=== PATIENT | female | born 1935 | race Caucasian/White ===

== ENCOUNTER → 2018-01-21 08:41 | Outpatient (CLI) | payer MEDICARE, OTHER, SELFPAY ==
[2018-01-21 10:32] LABS: Erythrocyte Sedimentation Rate < 1 mm/hr (0-30)
[2018-01-21 10:36] LABS: Absolute Lymphocyte Count 1.18 X10^3/ul (0.83-4.51); Absolute Neutrophil Count 2.7 X10^3/uL (2.0-7.7); Basophil# 0.03 X10^3/uL; Basophil% 0.7 % (0-1); Eosinophil# 0.12 X10^3/uL; Eosinophils% 2.7 % (0-5); Hematocrit 40.1 % (37-47); Hemoglobin 13.2 g/dl (12.0-15.0); Lymphocyte # 1.18 X10^3/ul (4.0); Lymphocyte % 26.6 % (19-41); Mean Corp Hgb Conc 32.9 g/gl (32-36); Mean Corpuscular Hgb 30.8 pg (27.0-32.0); Mean Corpuscular Volume 93.7 fL (81-99); Mean Platelet Vol. 9.5 fl (6.2-12.0); Monocyte# 0.38 X10^3/uL; Monocyte% 8.6 % (0-10); Neutrophil # 2.71 X10^3/uL (2.7-7.7); Neutrophil % 61.2 % (47-70); Platelet Count 245 K/mm3 (150-450); RBC Distribution Width CV 13.1 % (11.6-14.6); RBC Distribution Width SD 44.5 fl (35.1-43.9); Red Blood Count 4.28 M/mm3 (4.2-5.4); White Blood Count 4.4 K/mm3 (4.4-11.0)
[2018-01-21 10:42] LABS: POSITIVE COUNT NO; POSITIVE DIFFERENTIAL NO; POSITIVE MORPHOLOGY NO
[2018-01-21 10:43] LABS: Hemoglobin A1c 5.7 % (4.2-6.3)
[2018-01-21 10:45] LABS: ALB/GLOB Ratio 1.3 RATIO (0.9-2.4); AST(SGOT) 15 U/L (15-37); Alanine Aminotransfer ALT/SGPT 25 U/L (13-56); Albumin, Serum 3.9 g/dL (3.2-5.0); Alkaline Phosphatase 37 U/L (45-117); Anion Gap 7 (5-15); BUN 28 mg/dL (7-18); BUN/Creat Ratio 33.1 RATIO (10-20); Calcium,Total 9.7 mg/dL (8.5-10.1); Chloride 107 mmol/L (98-107); Cholesterol 162 mg/dL (200); Creatinine, Serum 0.84 mg/dL (0.55-1.02); EST Glomerular Filtration Rate 69 mL/min (>60); Est Glom Filt Rate - Afr Amer 83 mL/min (>60); Glucose 106 mg/dL (74-106); High Density Lipoprotein 46 mg/dL; Magnesium 1.9 mg/dL (1.6-2.6); Potassium 3.9 mmol/L (3.5-5.1); Protein, Total 6.9 g/dL (6.4-8.2); Sodium Level 141 mmol/L (136-145); Triglycerides 215 mg/dL; Very Low Density Lipoprotein 43 mg/dL (5-40)
[2018-01-27 11:10] LABS: Vitamin D 1,25-Dihydroxy 39.8 pg/mL (19.9-79.3)
== END ==
PROVIDERS: Family Provider Family Medicine; PCP Family Medicine; Visit Provider Family Medicine
DX: E78.5 Hyperlipidemia, unspecified (principal); E83.42 Hypomagnesemia; E16.2 Hypoglycemia, unspecified; M12.80 Other specific arthropathies, not elsewhere classified, unspecified site; I10 Essential (primary) hypertension
CPT/HCPCS: 36415; 80053; 80061; 82652; 83036; 83735; 85025; 85652

== ENCOUNTER 2018-06-15 14:30 | Outpatient (RCR) | payer MEDICARE, OTHER, SELFPAY ==
--- NOTE | 2018-05-18 13:56 | HP.PTEVAL ---
Patient's Visit Information VENU RAMIREZ is a 82 year old F referred to Physical Therapy by Patrick Cowart with a diagnosis of Postural abnormality adn gait imbalnce.. Date of Evaluation: 05/18/18 Physical Therapist: Patrick Livingston DPT, OC - Visit Plan Frequency: 2x /Week Duration: 4-6 Weeks Plan: 2x/week for 3 weeks to 6 weeks. roll adn STM and stretch B ITB and teach ITB, HS stretches for HEP. Stretch ITB B. Teach hip strength and postural strength for HEP in gym. - Subjective Subjective: had difficulties and has not been able to get in for eval in January. Is in here because pt might have some spinal stenosis or postural abnormalities. Used to feel like she was veering left with walking but not anymore. Hasn't been walking as much over the last couple months. Gets burning in both lateral hips with ambulation adn soreness with pressure. Up and down steps can be bothersome to L knee which was fixed 4 yrs ago. may fovor L knee now as steps now hurt L knee descending steps. Probably has OA. No falls, no cane or walker, no dizzyness, does not feel imbalanced, no obvious neuropathy. Sleeps well. Basic ADLs are OK. Works in yard without problems in yard. Hobbies: cooking and reading adn on computer and does without a problem. [employer] class 2x/week. - Pain R knee Pain Intensity (Out of 10): 0 Pain Intensity Range: 0, 3 B hips Pain Intensity (Out of 10): 0 Pain Intensity Range: 0, 2 - Objective Posture is forward head adn kyphotic T/S. VOR walking is good. [id number] patella and achilles 2/3. Sensation WNL to gross light touch in LE. HS and gastroc minimally tight. ITB mod tight B. Strength 4/5 LE. Coordination to reciprocal toe and heel tap and heel to peterson test normal. Walking is safe and I, steps are reciprocal but need rail due to R knee pain. Exit chair without UE I. Tender to palpation B trochanteric bursa area. - Balance Scores Functional Gait Assessment Score: 27 % Disability: 10.0000 CATSIB Score (Max score 120 seconds): 120 - Goals Goal 1:: Pain in B hips 1/10 at worst and 90% improved with walking Goal Time Frame: 2-4 Weeks Goal 2:: I approp postural and LE strength ex. Goal Time Frame: 2-4 Weeks - Rehabilitation Potential Physical Therapy Diagnosis: Torchanteric bursitis and postural abnormality. Rehabilitation Potential: Fair - Anticipated Interventions Patient/Client Instruction: Educate patient on: Condition, Plan of Care For the Purpose of:: To decrease pain, To increase tolerance to activity/condition/position Therapeutic Exercise to Include: Strength training, Postural training, Flexibilty training, Passive ROM For the Purpose of:: To decrease pain, To increase tolerance to activity/condition/position Manual Therapy Techniques to Include: Passive ROM, Soft tissue mobilization For the Purpose of:: To increase tolerance to activity/condition/position, To improve ability of physical actions for home/community/work/leisure TENS: Yes Cryotherapy (ice pack, ice massage): Yes For the Purpose of:: To decrease pain Thank you for the opportunity to evaluate your patient. For Medicare and Medicare HMO plans, please review the plan of care and approve it. It will need to be FAXED BACK to us at [phone] for Medicare purposes. Please let me know if there are questions or concerns regarding this plan of care. Physician Signature: Date:
--- NOTE | 2018-06-15 15:20 | HP.PTDCSUM ---
HP - PT D/C Summary It has been my pleasure to treat VENU RAMIREZ under orders from Patrick Cowart MD, for the diagnosis of Postural abnormality adn gait imbalnce. for a total of 7 visit(s). Discharge Date: 06/15/18 Please see the following information for a summary of their discharge status. - Subjective Subjective: Feeling a little better. Has not been out walking due to cold weather. Squeezing ball between knees and squeezing now which is better. Hip exercises getting less painful. Stress is carried in neck. Driving to [facility] next week. Exercises in PT are helpful. Feels like she is on a track to do things. - Pain R knee Pain Intensity (Out of 10): 0 B hips Pain Intensity (Out of 10): 0 - Overall Improvement % Improvement: 50 - Objective Objective/Function: Walks well wiotu antalgia, feeling better overall. Going to [facility] for the winter next week and feels like she has enough to work on while down there. - Goals Goal 1:: Pain in B hips 1/10 at worst and 90% improved with walking Goal Progress: Progressing Goal 2:: I approp postural and LE strength ex. Goal Progress: Goal Met - Plan Plan: D/C to HEP - D/C Information Discharge Comments: Will go to [facility] next week and work on exercises I and let doctor know if concerns arise. If there are questions or concerns regarding this patient's physical therapy, please feel free to call me at [phone]. Thank you for the referral of this patient. Sincerely, Patrick Livingston, DPT, OCS, CSCS
== END 2018-06-15 19:00 | disposition home or self-care (01) ==
LOC: PT 14:30
PROVIDERS: Family Provider Family Medicine; PCP Family Medicine; Visit Provider Family Medicine
DX: R29.3 Abnormal posture (principal); R26.89 Other abnormalities of gait and mobility
CPT/HCPCS: 97110; 97140; 97162

== ENCOUNTER → 2018-11-02 | Outpatient (CLI) | payer MEDICARE, OTHER, SELFPAY ==
[2017-06-04 09:14] VITALS: BMI 31.6
[2018-11-02 10:26] LABS: Hematocrit 37.5 % (37-47); Hemoglobin 12.6 g/dl (12.0-15.0); Mean Corp Hgb Conc 33.6 g/gl (32-36); Mean Corpuscular Hgb 31.6 pg (27.0-32.0); Mean Platelet Vol. 9.7 fl (6.2-12.0); Platelet Count 269 K/mm3 (150-450); RBC Distribution Width CV 13.1 % (11.6-14.6); RBC Distribution Width SD 44.8 fl (35.1-43.9); Red Blood Count 3.99 M/mm3 (4.2-5.4); White Blood Count 4.5 K/mm3 (4.4-11.0)
[2018-11-02 10:32] LABS: Scan Indicated on CBC? Y/N NO
[2018-11-02 10:45] LABS: Microalbumin,Random Urine 45.4 mg/L (NO RANGE EST.); Microalbumin:Creatinine Ratio 34.4 mg/g CRE (<30 mg/g CRE)
[2018-11-02 11:09] LABS: ALB/GLOB Ratio 1.6 RATIO (0.9-2.4); AST(SGOT) 16 U/L (15-37); Alanine Aminotransfer ALT/SGPT 24 U/L (13-56); Albumin, Serum 3.9 g/dL (3.2-5.0); Alkaline Phosphatase 36 U/L (45-117); Anion Gap 10 (5-15); BUN 23 mg/dL (7-18); Calcium,Total 9.3 mg/dL (8.5-10.1); Chloride 107 mmol/L (98-107); Cholesterol 146 mg/dL (200); Creatinine, Serum 0.79 mg/dL (0.55-1.02); EST Glomerular Filtration Rate 73 mL/min (>60); Est Glom Filt Rate - Afr Amer 89 mL/min (>60); Globulin 2.5 g/dL (2.2-4.2); Glucose 93 mg/dL (74-106); High Density Lipoprotein 47 mg/dL; Potassium 4.1 mmol/L (3.5-5.1); Protein, Total 6.4 g/dL (6.4-8.2); Sodium Level 141 mmol/L (136-145); Triglycerides 175 mg/dL; Very Low Density Lipoprotein 35 mg/dL (5-40)
== END | disposition home or self-care (01) ==
LOC: MFPLAB 09:07
PROVIDERS: Family Provider Family Medicine; PCP Family Medicine; Referring Provider Family Medicine; Visit Provider Family Medicine
DX: I10 Essential (primary) hypertension (principal); E83.42 Hypomagnesemia; M13.0 Polyarthritis, unspecified; E78.5 Hyperlipidemia, unspecified
CPT/HCPCS: 36415; 80053; 80061; 82043; 82570; 83735; 85027

== ENCOUNTER → 2019-05-11 | Outpatient (CLI) | payer MEDICARE, OTHER, SELFPAY ==
[2019-05-11 15:32] LABS: Absolute Lymphocyte Count 1.51 X10^3/uL (0.83-4.51); Basophil# 0.05 X10^3/uL; Eosinophil# 0.12 X10^3/uL; Eosinophils% 2.3 % (0-5); Hematocrit 38.9 % (37-47); Hemoglobin 12.8 g/dL (12.0-15.0); Lymphocyte # 1.51 X10^3/ul (4.0); Mean Corp Hgb Conc 32.9 g/dL (32-36); Mean Corpuscular Hgb 31.3 pg (27.0-32.0); Mean Corpuscular Volume 95.1 fL (81-99); Mean Platelet Vol. 9.6 fl (6.2-12.0); Monocyte% 9.6 % (0-10); NRBC Flagged by Analyzer 0 % (0-5); Neutrophil # 3.01 X10^3/uL (2.7-7.7); Neutrophil % 57.7 % (47-70); Platelet Count 278 K/mm3 (150-450); RBC Distribution Width CV 12.5 % (11.6-14.6); RBC Distribution Width SD 43.9 fl (35.1-43.9); Red Blood Count 4.09 M/mm3 (4.2-5.4); White Blood Count 5.2 K/mm3 (4.4-11.0)
[2019-05-11 15:50] LABS: Microalbumin,Random Urine 21.4 mg/L (NO RANGE EST.); Microalbumin:Creatinine Ratio 31.5 mg/g CRE (<30 mg/g CRE)
[2019-05-11 16:02] LABS: ALB/GLOB Ratio 1.4 RATIO (0.9-2.4); AST(SGOT) 13 U/L (15-37); Alanine Aminotransfer ALT/SGPT 25 U/L (13-56); Alkaline Phosphatase 36 U/L (45-117); Anion Gap 6 (5-15); BUN 24 mg/dL (7-18); BUN/Creat Ratio 30.4 RATIO (10-20); Calcium,Total 9.6 mg/dL (8.5-10.1); Chloride 106 mmol/L (98-107); Creatinine, Serum 0.79 mg/dL (0.55-1.02); EST Glomerular Filtration Rate 74 mL/min (>60); Est Glom Filt Rate - Afr Amer 89 mL/min (>60); Globulin 2.9 g/dL (2.2-4.2); Glucose 84 mg/dL (74-106); Potassium 3.6 mmol/L (3.5-5.1); Protein, Total 6.9 g/dL (6.4-8.2); Sodium Level 138 mmol/L (136-145)
== END | disposition home or self-care (01) ==
LOC: MFPLAB 14:35
PROVIDERS: Family Provider Family Medicine; PCP Family Medicine; Referring Provider Family Medicine; Visit Provider Family Medicine
DX: I10 Essential (primary) hypertension (principal); S76.012S Strain of muscle, fascia and tendon of left hip, sequela
CPT/HCPCS: 36415; 80053; 82043; 82570; 85025

== ENCOUNTER → 2020-01-24 08:21 | Outpatient (CLI) | payer MEDICARE, OTHER, SELFPAY ==
[2020-01-24 12:15] LABS: Absolute Lymphocyte Count 1.35 X10^3/uL (0.83-4.51); Absolute Neutrophil Count 2.5 X10^3/uL (2.0-7.7); Basophil# 0.05 X10^3/uL; Basophil% 1.1 % (0-1); Eosinophil# 0.12 X10^3/uL; Eosinophils% 2.7 % (0-5); Hemoglobin 12.8 g/dL (12.0-15.0); Lymphocyte # 1.35 X10^3/ul (4.0); Lymphocyte % 30.8 % (19-41); Mean Corpuscular Hgb 31.4 pg (27.0-32.0); Mean Platelet Vol. 10.4 fl (6.2-12.0); Monocyte# 0.38 X10^3/uL; Monocyte% 8.7 % (0-10); NRBC Flagged by Analyzer 0 % (0-5); Neutrophil # 2.46 X10^3/uL (2.7-7.7); Platelet Count 226 K/mm3 (150-450); RBC Distribution Width CV 12.7 % (11.6-14.6); RBC Distribution Width SD 45.2 fl (35.1-43.9); Red Blood Count 4.08 M/mm3 (4.2-5.4); White Blood Count 4.4 K/mm3 (4.4-11.0)
[2020-01-24 12:44] LABS: ALB/GLOB Ratio 1.5 RATIO (0.9-2.4); AST(SGOT) 12 U/L (15-37); Alanine Aminotransfer ALT/SGPT 26 U/L (13-56); Alkaline Phosphatase 37 U/L (45-117); Anion Gap 5 (5-15); BUN 29 mg/dL (7-18); BUN/Creat Ratio 35.8 RATIO (10-20); Calcium,Total 9.3 mg/dL (8.5-10.1); Chloride 108 mmol/L (98-107); Cholesterol 147 mg/dL (200); Creatinine, Serum 0.81 mg/dL (0.55-1.02); EST Glomerular Filtration Rate 72 mL/min (>60); Est Glom Filt Rate - Afr Amer 87 mL/min (>60); Globulin 2.7 g/dL (2.2-4.2); Glucose 99 mg/dL (74-106); High Density Lipoprotein 48 mg/dL; Potassium 4.1 mmol/L (3.5-5.1); Protein, Total 6.7 g/dL (6.4-8.2); Sodium Level 140 mmol/L (136-145); Thyroid Stim Hormone (TSH) 2.31 uIU/mL (0.358-3.74); Triglycerides 182 mg/dL; Very Low Density Lipoprotein 36 mg/dL (5-40)
[2020-01-24 12:55] LABS: Hemoglobin A1c 5.7 % (3.8-5.6)
== END ==
PROVIDERS: PCP Family Medicine; Referring Provider Family Medicine; Visit Provider Family Medicine
DX: I10 Essential (primary) hypertension (principal); E78.5 Hyperlipidemia, unspecified; E16.2 Hypoglycemia, unspecified; R53.83 Other fatigue; R53.81 Other malaise
CPT/HCPCS: 36415; 80053; 80061; 83036; 84443; 85025

== ENCOUNTER 2020-02-27 12:30 | Outpatient (RCR) | payer MEDICARE, OTHER, SELFPAY ==
--- NOTE | 2020-02-02 13:22 | HP.PTEVAL ---
Patient's Visit Information VENU RAMIREZ is a 84 year old F referred to Physical Therapy by Dr. 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 Date of Evaluation: 02/01/20 Physical Therapist: Sherrie Collins DPT - Visit Plan Frequency: 2x /Week Duration: 4 Weeks Plan: Ultrasound- focus on core strength/stabilization - Subjective Patient reports that she goes to [place] in the winter and a few years ago she was doing aquatic aerobics and the instructor was overly aggressive- the next day she could not walk and ended up in the ER- and has a bulged disc is L3-4 with stenosis. This year when she was down in [place] it was really bothering her she went to a pain specialist- he gave her an injection in her left hip/buttock area- they also did a spinal injection- she reports it helped a little. They came home in October and its been bothering her ever since. When she goes down stairs it really hurts. The pain radiates down the back of the leg to the calf- has had foot pain but that comes and goes. Agg: getting in out of the car, going down stairs, sitting in her reclyner getting back up Worst: 8/10 Best: 0/10 Eases: sit down and get off of it. Describes the pain as shooting and dull. No N/T in the LE. No loss or change in bowel or bladder. No more injections scheduled. Has had recent MRI and x-rays of the lumbar spine. No falls or loss of balance. No AD. Sleep: not disturbed- side sleeper. PMHx: HTN, hysterectomy Meds: - Objective Posture: FH, RS, increased kyphosis- can correct but is unable to maintain. Gait: no deviaton noted. Stairs: asc/desc 8 nonrecip with 1 HR. HR/TR: able. SLS: weight shift but unable to SLS. ROM: WFL in lumbar and hip but reports pain with forward flexion and stiffness in all directions. Strength: Core: poor, Hip: 4-/5 throughout, Knee: 4+/5, Ankle:4+/5. Sensation: WNL to gross touch bilaterally. Special Test: Dural signs: positive on the left, DESTINEE: positive, Scour: negative. Slump: positive - Goals Goal 1:: Patient will be I with HEP and progression Goal Time Frame: 4-6 Weeks Goal 2:: Patient will ambulate >300 feet with a normalized gait pattern Goal Time Frame: 4-6 Weeks Goal 3:: Patient will maintain proper posture t/o tx session to dmeo increased core s/s. Goal Time Frame: 4-6 Weeks Goal 4:: Patient will report no radiating s/s down the left LE for 1 week Goal Time Frame: 4-6 Weeks - Rehabilitation Potential Physical Therapy Diagnosis: Patient presents with hypomobility- she has decreased Rom, strength, flex and muscular endurance leading to poor posture and increased pain with ADL's Rehabilitation Potential: Fair - Anticipated Interventions Patient/Client Instruction: Educate patient on: Benefits of Fitness Program Therapeutic Exercise to Include: Strength training, Endurance training, Balance training, Body mechanics, Postural training, Flexibilty training, Gait and locomotor training, Neuromotor development, Passive ROM, Active ROM, Dynamic Lumbar Stabilization, Scapular Strength/Stabilization For the Purpose of:: To improve muscle performance and motor function TENS: Yes Cryotherapy (ice pack, ice massage): Yes Thermo therapy (hot pack): Yes Ultrasound (thermal/non thermal): Yes Thank you for the opportunity to evaluate your patient. For Medicare and Medicare HMO plans, please review the plan of care and approve it. It will need to be FAXED BACK to us at [phone] for Medicare purposes. For Medicare only, by signing this I certify the plan of care. Please let me know if there are questions or concerns regarding this plan of care. Physician Signature: Date:
--- NOTE | 2020-02-27 12:49 | HP.PTREVAL ---
Dr. Patrick Cowart MD, It has been my pleasure to treat VENU RAMIREZ over the last 9 visits for Left Glut Pain and L4-5 Spinal Stenosis. Please see the progress note below for an update on the physical therapy plan of care! Subjective: Patient is to have spinal injections on Thursday. She is frustrated and doesn't feel that she can ever be cured. She has not felt any significant changes. her low back is a dull ache- she had to go down 3 stairs to get here and she has misery in the right leg- down the back of her knee- Years ago she had a meniscal tear and clean out in the right knee. had blood clots after that surgery so she does not want to have any other surgeries. Objective/Function: Posture: FH, RS, increased kyphosis- can correct but is unable to maintain. Gait: no deviaton noted. Stairs: asc/desc 8 nonrecip with 1 HR. HR/TR: able. SLS: weight shift but unable to SLS. ROM: WFL in lumbar and hip but reports pain with forward flexion and stiffness in all directions. Strength: Core: poor, Hip: 4-/5 throughout, Knee: 4+/5, Ankle:4+/5. Sensation: WNL to gross touch bilaterally. Special Test: Dural signs: positive on the left, DESTINEE: positive, Scour: negative. Slump: positive. No significant changes since IE Plan Plan: Hold as patient is having injections. Gave option of aquatic therapy but patient declined. Goals Goal 1:: Patient will be I with HEP and progression Goal Time Frame: 4-6 Weeks Goal Progress: Progressing Goal 2:: Patient will ambulate >300 feet with a normalized gait pattern Goal Time Frame: 4-6 Weeks Goal Progress: Not Progressing Goal 3:: Patient will maintain proper posture t/o tx session to dmeo increased core s/s. Goal Time Frame: 4-6 Weeks Goal Progress: Not Progressing Goal 4:: Patient will report no radiating s/s down the left LE for 1 week Goal Time Frame: 4-6 Weeks Goal Progress: Not Progressing Anticipated Interventions Patient/Client Instruction: Educate patient on: Benefits of Fitness Program Therapeutic Exercise to Include: Strength training, Endurance training, Balance training, Body mechanics, Postural training, Flexibilty training, Gait and locomotor training, Neuromotor development, Passive ROM, Active ROM, Dynamic Lumbar Stabilization, Scapular Strength/Stabilization For the Purpose of:: To improve muscle performance and motor function TENS: Yes Cryotherapy (ice pack, ice massage): Yes Thermo therapy (hot pack): Yes Ultrasound (thermal/non thermal): Yes Please do not hesitate to contact me at [phone] by phone or if you have questions or concerns regarding this new plan of care! Sincerely, VIRGIE BennettT
--- NOTE | 2020-03-26 16:40 | HP.PT.NRP ---
VENU RAMIREZ was seen in my office for initial evaluation on 02/01/20. The following Plan of Care was established for this patient: Initial Frequency: 2x /Week Initial Duration: 4 Weeks Patient/Client Instruction: Educate patient on: Benefits of Fitness Program Therapeutic Exercise to Include: Strength training, Endurance training, Balance training, Body mechanics, Postural training, Flexibilty training, Gait and locomotor training, Neuromotor development, Passive ROM, Active ROM, Dynamic Lumbar Stabilization, Scapular Strength/Stabilization For the Purpose of:: To improve muscle performance and motor function TENS: Yes Cryotherapy (ice pack, ice massage): Yes Thermo therapy (hot pack): Yes Ultrasound (thermal/non thermal): Yes This patient was last seen in our office . Pertinent comments regarding their Physical therapy will appear below: Patient has not returned to PT in over 6 weeks- appropriate for d/c and return to MD for further evaluation as needed. At this point I will be discontinuing this patient from physical therapy. I would be happy to see this patient again in the future if found appropriate by the physician. Thank you! VIRGIE BennettT
== END 2020-02-27 19:00 | disposition home or self-care (01) ==
LOC: PT 12:30
PROVIDERS: PCP Family Medicine; Referring Provider Family Medicine; Visit Provider Family Medicine
DX: M48.061 Spinal stenosis, lumbar region without neurogenic claudication (principal); M76.02 Gluteal tendinitis, left hip; M79.605 Pain in left leg
CPT/HCPCS: 97035; 97110; 97162; 97164

== ENCOUNTER → 2020-11-08 09:02 | Outpatient (CLI) | payer MEDICARE, OTHER, SELFPAY ==
[2017-06-04 09:14] VITALS: BMI 31.6
[2020-11-08 10:12] LABS: Erythrocyte Sedimentation Rate 1 mm/hr (0-30)
[2020-11-08 10:15] LABS: Absolute Lymphocyte Count 1.49 X10^3/uL (0.83-4.51); Absolute Neutrophil Count 3.1 X10^3/uL (2.0-7.7); Basophil# 0.06 X10^3/uL; Basophil% 1.2 % (0-1); Eosinophil# 0.12 X10^3/uL; Eosinophils% 2.3 % (0-5); Hematocrit 39.9 % (37-47); Hemoglobin 13.3 g/dL (12.0-15.0); Lymphocyte # 1.49 X10^3/ul (0.83-4.51); Lymphocyte % 28.9 % (19-41); Mean Corp Hgb Conc 33.3 g/dL (32-36); Mean Corpuscular Hgb 31.4 pg (27.0-32.0); Mean Corpuscular Volume 94.3 fL (81-99); Monocyte# 0.39 X10^3/uL; Monocyte% 7.6 % (0-10); NRBC Flagged by Analyzer 0 % (0-5); Neutrophil # 3.07 X10^3/uL (2.7-7.7); Neutrophil % 59.6 % (47-70); Platelet Count 271 K/mm3 (150-450); RBC Distribution Width CV 12.5 % (11.6-14.6); Red Blood Count 4.23 M/mm3 (4.2-5.4); White Blood Count 5.2 K/mm3 (4.4-11.0)
[2020-11-08 10:28] LABS: ALB/GLOB Ratio 1.3 RATIO (0.9-2.4); AST(SGOT) 13 U/L (15-37); Alanine Aminotransfer ALT/SGPT 24 U/L (13-56); Albumin, Serum 3.8 g/dL (3.2-5.0); Alkaline Phosphatase 46 U/L (45-117); Anion Gap 6 (5-15); BUN 25 mg/dL (7-18); BUN/Creat Ratio 32.9 RATIO (10-20); Calcium,Total 9.7 mg/dL (8.5-10.1); Chloride 108 mmol/L (98-107); Cholesterol 139 mg/dL (200); Creatinine, Serum 0.76 mg/dL (0.55-1.02); EST Glomerular Filtration Rate 77 mL/min (>60); Est Glom Filt Rate - Afr Amer 93 mL/min (>60); Globulin 2.9 g/dL (2.2-4.2); Glucose 109 mg/dL (74-106); High Density Lipoprotein 49 mg/dL; Potassium 3.9 mmol/L (3.5-5.1); Protein, Total 6.7 g/dL (6.4-8.2); Sodium Level 142 mmol/L (136-145); T4 Free Direct 1.05 ng/dL (0.76-1.46); Thyroid Stim Hormone (TSH) 1.86 uIU/mL (0.358-3.74); Triglycerides 170 mg/dL; Very Low Density Lipoprotein 34 mg/dL (5-40)
== END ==
PROVIDERS: PCP Family Medicine; Referring Provider Family Medicine; Visit Provider Family Medicine
DX: R53.81 Other malaise (principal); R53.83 Other fatigue; I10 Essential (primary) hypertension
CPT/HCPCS: 36415; 80053; 80061; 84439; 84443; 85025; 85652

== ENCOUNTER → 2020-11-15 13:25 | Outpatient (CLI) | payer MEDICARE, OTHER, SELFPAY ==
--- NOTE | 2020-11-15 13:30 | VDLE_ITS ---
Reason For Study: edema RIGHT LEFT GSV is normal. GSV is normal. CFV is compressible, spontaneous, phasic, CFV is compressible, spontaneous, phasic, competent and demonstrates normal competent, and demonstrates normal augmentation. augmentation. FV is compressible, spontaneous, phasic, FV is compressible, spontaneous, phasic, competent and demonstrates normal competent and demonstrates normal augmentation. augmentation. POP V is compressible, spontaneous, phasic, POP V is compressible, spontaneous, phasic, competent and demonstrates normal competent and demonstrates normal augmentation. augmentation. T/P Trunk is compressible. T/P Trunk is compressible. PTV is compressible. PTV is compressible. RT PerV is compressible. LT PerV is compressible. Procedure This is a venous duplex using B-mode, color flow and spectral Doppler. Exam performed in department. The exam was diagnostic. A preliminary report was called and/or faxed to Dr. Muniz. VL/Venous Duplex US - Bi Extrem Interpretation Summary Deep veins of the lower extremities are bilaterally patent and compressible seg mentally. There is no evidence of deep vein thrombosis on either side. Valvular competence appears in tact within the proximal deep venous systems bilaterally. The great saphenous veins appear bila terally patent and compressible segmentally. Ordering Physician: Shaan Muniz Performed By: Shahbaz Mackey, RVT
== END ==
PROVIDERS: PCP Family Medicine; Referring Provider Family Medicine; Visit Provider Family Medicine
DX: R60.0 Localized edema (principal)
CPT/HCPCS: 93970

== ENCOUNTER → 2020-11-20 07:48 | Outpatient (CLI) | payer MEDICARE, OTHER, SELFPAY ==
[2017-06-04 09:14] VITALS: BMI 31.6
--- NOTE | 2020-11-20 07:49 | MRI_ITS ---
STUDY: MRI LUMBAR SPINE WITHOUT CONTRAST REASON FOR EXAM: Female, 85 years old. 85y with known spinal stenosis. now worsening function with walk TECHNIQUE: Standardized fat and water weighted pulse sequences were obtained in the sagittal and axial planes. COMPARISON: None FINDINGS: T12-L1: Normal endplates. Normal disc height, hydration and morphology. Normal bilateral facet joints. Normal central canal and bilateral lateral recesses. Normal bilateral intervertebral neural foramina. Normal lumbar lordosis. There is no substantial scoliosis. Normal conus medullaris that terminates at the L1. L1-2: Normal endplates. Normal disc height, hydration and morphology. Normal bilateral facet joints. Normal central canal and bilateral lateral recesses. Normal bilateral intervertebral neural foramina. L2-3: Mild bilateral facet hypertrophy and ligament flavum hypertrophy. 2 mm retrolisthesis of L2 on L3 with a mild broad disc protrusion produces mild spinal stenosis with mild bilateral recess stenosis and mild bilateral neural foraminal stenosis. L3-4: Mild bilateral facet hypertrophy and moderate ligament flavum hypertrophy. Mild bilobed disc protrusion produces mild spinal stenosis and mild left neural foraminal stenosis. L4-5: Severe bilateral facet hypertrophy and mild ligament flavum hypertrophy. 2 mm of anterolisthesis of L4 on L5 with a mild broad disc protrusion produces moderate spinal stenosis with moderate bilateral lateral recess stenosis with abutment of the L5 nerve roots bilaterally and moderate by lateral neural foraminal stenosis with abutment of the exiting L4 nerve roots bilaterally. L5-S1: Mild broad disc protrusion produces mild spinal stenosis and mild bilateral neural foraminal stenosis. Normal visualized sacral ala. Normal visualized paraspinous soft tissue structures. MRI/Spine Lumbar (Routine) IMPRESSION: Multilevel degenerative changes, as described above. Electronically Signed: Mikel Iqbal MD at 17:42 EDT Tel , Service support ,
--- NOTE | 2020-11-20 07:53 | ECHOD_ITS ---
Reason For Study: Severe FERNANDEZ, Leg swelling Procedure This was a 2D Doppler, Color Flow transthoracic echocardiogram. The study was technically difficult. Exam performed in department. Left Ventricle Normal LV size. Mild concentric left ventricular hypertrophy. Left ventricular systolic function is normal. The estimated ejection fraction is 70 %. Diastolic function is indeterminate. No regional wall motion abnormalities noted. Right Ventricle Normal RV size. Normal systolic function. Atria Normal left atrium. Normal right atrium. No doppler evidence for ASD. Mitral Valve There is no mitral annular calcification. Normal mitral valve. Trivial mitral valve insufficiency. Tricuspid Valve Normal tricuspid valve. Trivial tricuspid valve insufficiency. Unable to estimate RV systolic pressure/pulmonary artery pressure due to technically difficult study. Aortic Valve Trisinus/trileaflet aortic valve. Moderate focal aortic valve calcification. Pulmonic Valve The pulmonic valve is not well visualized. Great Vessels Normal sized aortic root. Pericardium/Pleural No pericardial effusion. Epicardial fat. MMode/2D Measurements & Calculations LVIDd: 4.0 cm IVSd: 1.5 cm Ao root diam: 3.5 cm LVIDs: 2.1 cm LVPWd: 1.3 cm LA dimension: 3.6 cm RVDd: 3.1 cm FS: 49.0 % LAV(MOD-bp): 56.1 ml LA A4 area: 17.7 cm2 RA A4 area: 15.4 cm2 LAV(MOD-bp) Indexed: 30.7 ml/m2 LAV(MOD-sp2): 59.5 ml LAV(MOD-sp4): 51.7 ml Time Measurements MV dec time: 0.29 sec Doppler Measurements & Calculations MV E max krunal: 76.3 cm/sec Lat Peak E' Krunal: 4.1 cm/sec Med Peak E' Krunal: 4.5 cm/sec MV A max krunal: 135.1 cm/sec E/E' lat: 18.5 E/E' med: 16.9 MV E/A: 0.57 MV V2 max: 146.4 cm/sec MV P1/2t max krunal: 105.0 cm/sec Ao V2 max: 143.5 cm/sec MV max P.6 mmHg MV P1/2t: 65.7 msec Ao max P.2 mmHg MV V2 mean: 65.7 cm/sec MV dec slope: 468.0 cm/sec2 MV mean P.1 mmHg MVA(P1/2t): 3.3 cm2 MV V2 VTI: 40.6 cm AI max krunal: 362.8 cm/sec LV V1 max: 142.0 cm/sec PA V2 max: 105.9 cm/sec AI max P.7 mmHg LV V1 max P.1 mmHg AI dec slope: 152.6 cm/sec2 AI P1/2t: 696.2 msec ECHO/Echo Complete Interpretation Summary The study was technically difficult. Left ventricular systolic function is normal. The estimated ejection fraction is 70 %. Mild concentric left ventricular hypertrophy. Trivial mitral valve insufficiency. Trivial tricuspid valve insufficiency. Moderate focal aortic valve calcification. Epicardial fat. Unable to estimate RV systolic pressure/pulmonary artery pressure due to techni omari difficult study. Diastolic function is indeterminate. Ordering Physician: Patrick Cowart Referring Physician: Patrick Cowart Performed By: Loi Lemons RCS
== END ==
PROVIDERS: PCP Family Medicine; Referring Provider Family Medicine; Visit Provider Family Medicine
DX: M48.061 Spinal stenosis, lumbar region without neurogenic claudication (principal); R06.00 Dyspnea, unspecified
CPT/HCPCS: 72148; 93306

== ENCOUNTER → 2020-12-04 14:39 | Outpatient (CLI) | payer MEDICARE, OTHER, SELFPAY ==
[2017-06-04 09:14] VITALS: BMI 31.6
[2020-12-04 17:41] LABS: Absolute Lymphocyte Count 1.45 X10^3/uL (0.83-4.51); Absolute Neutrophil Count 3.7 X10^3/uL (2.0-7.7); Basophil# 0.04 X10^3/uL; Basophil% 0.7 % (0-1); Eosinophils% 1.7 % (0-5); Hematocrit 38.9 % (37-47); Hemoglobin 12.8 g/dL (12.0-15.0); Lymphocyte # 1.45 X10^3/ul (0.83-4.51); Lymphocyte % 25.2 % (19-41); Mean Corp Hgb Conc 32.9 g/dL (32-36); Mean Corpuscular Hgb 30.9 pg (27.0-32.0); Mean Platelet Vol. 10.5 fl (6.2-12.0); Monocyte# 0.45 X10^3/uL; Monocyte% 7.8 % (0-10); NRBC Flagged by Analyzer 0 % (0-5); Neutrophil # 3.68 X10^3/uL (2.7-7.7); Neutrophil % 63.9 % (47-70); Platelet Count 277 K/mm3 (150-450); RBC Distribution Width CV 12.4 % (11.6-14.6); Red Blood Count 4.14 M/mm3 (4.2-5.4); White Blood Count 5.8 K/mm3 (4.4-11.0)
[2020-12-04 18:21] LABS: Erythrocyte Sedimentation Rate 2 mm/hr (0-30)
[2020-12-04 18:23] LABS: ALB/GLOB Ratio 1.2 RATIO (0.9-2.4); AST(SGOT) 13 U/L (15-37); Alanine Aminotransfer ALT/SGPT 25 U/L (13-56); Albumin, Serum 3.8 g/dL (3.2-5.0); Alkaline Phosphatase 46 U/L (45-117); Anion Gap 5 (5-15); BUN 28 mg/dL (7-18); BUN/Creat Ratio 32.1 RATIO (10-20); Calcium,Total 9.7 mg/dL (8.5-10.1); Chloride 108 mmol/L (98-107); Creatinine, Serum 0.87 mg/dL (0.55-1.02); EST Glomerular Filtration Rate 66 mL/min (>60); Est Glom Filt Rate - Afr Amer 79 mL/min (>60); Globulin 3.1 g/dL (2.2-4.2); Glucose 154 mg/dL (74-106); Potassium 3.7 mmol/L (3.5-5.1); Protein, Total 6.9 g/dL (6.4-8.2); Sodium Level 141 mmol/L (136-145); Thyroid Stim Hormone (TSH) 1.53 uIU/mL (0.358-3.74)
== END ==
PROVIDERS: PCP Family Medicine; Visit Provider Family Medicine
DX: R06.00 Dyspnea, unspecified (principal)
CPT/HCPCS: 36415; 80053; 84443; 85025; 85652

== ENCOUNTER → 2020-12-07 13:32 | Outpatient (CLI) | payer MEDICARE, OTHER, SELFPAY ==
[2020-12-07 12:46] VITALS: BMI 30.6
--- NOTE | 2020-12-07 13:40 | RAD_ITS ---
STUDY: X-RAY CHEST REASON FOR EXAM: Female, 85 years old. chest pain. TECHNIQUE: PA and lateral views of the chest. COMPARISON: 04/04/2011 FINDINGS: The lungs are clear and expanded. There is no demonstrated pleural abnormality. Normal size heart. Normal mediastinum and arnulfo. Normal visualized pulmonary arteries. Normal visualized aortic arch and descending thoracic aorta. Normal visualized thoracic spine. Normal visualized ribs, clavicles, and shoulders. There is no demonstrated abnormality of the visualized soft tissue structures of the upper abdomen. RAD/Chest PA and Lateral IMPRESSION: Normal x-ray examination of the chest. Electronically Signed: Mikel Iqbal MD at 11:05 EDT Tel , Service support ,
== END ==
PROVIDERS: PCP Family Medicine; Referring Provider Internal Medicine Cardiovascular Disease; Visit Provider Internal Medicine Cardiovascular Disease
DX: R06.00 Dyspnea, unspecified (principal); R07.9 Chest pain, unspecified
CPT/HCPCS: 71046

== ENCOUNTER 2020-12-11 06:59 | Day surgery (SDC) | payer MEDICARE, OTHER, SELFPAY ==
[2020-12-07 12:46] VITALS: BMI 30.6
[2020-12-10 12:59] VITALS: BMI 30.6
[2020-12-11] VITALS (20 sets, daily range): BP systolic 145–219; BP diastolic 62–81; PULSE 55–73; RESP 14–16; TEMP 36.6–36.9; O2SAT 94–98
--- NOTE | 2020-12-11 08:22 | CL.D_ITS ---
Patient Name: VENU RAMIREZ Study Date: 12/11/2020 Performing: Tor Cortés MD Ht: 62.99 inches 160 cm : 1935 Wt: 171.96 lbs 78 kg Age: 85 Gender: female BSA: 1.81 PROCEDURE(S) PERFORMED [id number]/LV CLINICAL PROFILE AND INDICATIONS Indications: Suspected CAD Heart Failure: None Stress/Imaging Stress/Image Study Performed: No CAD Presentations: Stable angina. 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 RECOMMENDATIONS Referred for immediate PCI DESCRIPTION OF PROCEDURE The patient arrived to the procedure lab. The risks and benefits of the procedure as well as a full d escription of our services here and current unavailability of surgical backup were fully explained to the patient and/or their significant other prior to the catheterization. The Timeout was completed, verifying the correct patient and procedure. The patient's procedural site was prepped and draped in the usual fashion. Local anesthetic was given subcutaneously to right radial region with Lidocaine 2% . Using a modified Seldinger technique, arterial access was obtained via the right radial artery, a 6 Fr sheath was inserted. Left Coronary Artery selective angiography was performed in multiple views u sing a 5 Fr. 4.0 [place] catheter. Right Coronary Artery selective angiography was then performed in mu ltiple views using a 5 Fr. 4.0 [place] catheter. Left Ventriculography was performed in ZARATE projection using a 5 Fr. [place] catheter. LV to AO pullback pressures were then recorded. CORONARY ANGIOGRAPHY DOMINANCE: Right Dominant LEFT HEART ASSESSMENT Left Ventricular Ejection Fraction: by LV Gram 65 % Normal LV wall motion Normal Left Ventricular systolic function LEFT MAIN: Mild calcification, Non-obstructive LEFT ANTERIOR DESCENDING ARTERY: PROX LAD: Diffusely diseased up to 80 % CIRCUMFLEX ARTERY: Mild luminal irregularities RIGHT CORONARY ARTERY: PROX RCA: Diffusely diseased up to 70 % COMPLICATIONS PROCEDURE MEDICATIONS Fentanyl 50 mcg IV Versed 1 mg IV Versed 1 mg IV Oxygen: 2 L/min via nasal cannula Brilinta 180 mg PO @ 12/11/2020 08:12:27 Heparin given IA 12/11/2020 08:00:39 Verapamil 2.5mg, Ntg 100mcgs, 3000 units of Heparin given IA 12/11/2020 08:00:39 SUMMARY OF HEMODYNAMIC DATA Time AIR REST ECG 07:18:59 AO 155/72 (105) SA 08:03:11 LV 182/4, 14 08:10:31 LV 177/4, 13 08:10:37 LV 180/8, 17 08:11:33 LVp 180/8, 14 08:11:36 AOp 190/71 (117) 08:11:41 Signed By Tor Cortés MD On 12/11/2020 08:22:04 Tor Cortés MD
--- NOTE | 2020-12-11 10:00 | EKG12_ITS ---
Test Reason : POST STENT Blood Pressure : / mmHG Vent. 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
--- NOTE | 2020-12-11 10:00 | EKG12_ITS ---
Test Reason : CHEST TIGHTNESS Blood Pressure : / mmHG Vent. Rate : 069 BPM Atrial Rate : 069 BPM P-R Int : 188 ms QRS Dur : 074 ms QT Int : 402 ms P-R-T Axes : 042 -50 088 degrees QTc Int : 430 ms Normal sinus rhythm Left axis deviation Inferior infarct , age undetermined Anterolateral infarct , age undetermined Abnormal ECG Confirmed by AUBRIE HERNANDEZ, TOR ([id number]), photography editor HERMINIO SERNA ([id number]) on 12/13/2020 10:11:08 AM Referred By: Tor Cortés Confirmed By:TOR CORTÉS MD
--- NOTE | 2020-12-11 10:26 | CL.I_ITS ---
Patient Name: VENU RAMIREZ Study Date: 12/11/2020 Performing: Rik Hall MD Ht: 63 inches 160 cm : 1935 Wt: 172.2 lbs 78 kg Age: 85 Gender: female BSA: 1.81 PROCEDURE(S) PERFORMED UV76-FNP W OR WO PTCA, SINGLE CORONARY ARTERY CLINICAL PROFILE AND CO-MORBIDITIES Indications: Suspected CAD Heart Failure: None Stress/Imaging Stress/Image Study Performed: No CAD Presentations: Stable angina. CONCLUSIONS Successful FRANCO to mRCA RECOMMENDATIONS Pt. should return for PCI of LAD in 3-4 weeks DESCRIPTION OF PROCEDURE The patient arrived to the procedure lab. The risks and benefits of the procedure as well as a full d escription of our services here and current unavailability of surgical backup were fully explained to the patient and/or their significant other prior to the catheterization. The Timeout was completed, verifying the correct patient and procedure. The patient's procedural site was prepped and draped in the usual fashion. Local anesthetic was given subcutaneously to right radial region with Lidocaine 2% Using a modified Seldinger technique,arterial access was obtained via the right radial artery, a 6Fr sheath was inserted. Left Coronary Artery selective angiography was performed in multiple views usin g a 5 Fr. 4.0 [place] catheter. Right Coronary Artery selective angiography was then performed in multi ple views using a 5 Fr. 4.0 [place] catheter. Left Ventriculography was performed in ZARATE projection usi ng a 5 Fr. Pigtail catheter. LV to AO pullback pressures were then recorded.The images were reviewed and options discussed. A decision was then made to proceed with an Intervention, IVUS o r other adjunct procedure. JR 4.0 Guide catheter was inserted and engaged into the RCA. BMW Guide wire was advanced to the R CA. 3.0 x 15 Emerge Balloon catheter was inserted. 2.0 x 20 Emerge Balloon catheter was inserted. Bal loon catheter was advanced across lesion in the right coronary, mid. PTCA balloon inflated at 14 atms for 44 secs. PTCA balloon inflated at 14 atms for 27 secs. Angiogram performed post balloon dilatati on. 3.0 x 15 Emerge Balloon catheter was inserted. Balloon catheter was advanced across lesion in the right coronary, mid. PTCA balloon inflated at 10 atms for 20 secs. PTCA balloon inflated at 10 atms for 20 secs. PTCA balloon inflated at 14 atms for 25 secs. Angiogram performed post balloon dilatatio n. 3.5 x 40 Orsiro Drug Eluting stent was inserted. Drug Eluting stent was advanced across the lesion in the right coronary, mid. Angiogram performed post stent deployment. 3.5 x 20 NC Emerge Balloon ca theter was inserted. Balloon catheter was inserted post stent. 3.5 x 15 Orsiro Drug Eluting stent was inserted. Drug Eluting stent was advanced across the lesion in the right coronary, mid. Angiogram performed post stent deployment. The arterial sheath was pulled and a TR Band was ap plied for hemostasis 14cc air inserted INTERVENTION INFORMATION LESION SITE: RCA (Mid) Lesion Complexity: High/C, chronic total occlusion: No, lesion at bifurcation: No, thrombus present: No, lesion length: 45 mm, culprit lesion: Yes, Previously treated lesion: No Pre Stenosis: 80 % Pre intervention MADELINE flow: 3 PROCEDURE: Drug Eluting Stent with pre and post dilatation Post Stenosis: 0 % Post intervention MADELINE flow: 3 Lesion Devices: Gregg .014 BMW [place] Straight 190cm Cardinal 6 Fr JR4 100cm Guide Catheter Rudolph Sci EMERGE MR 3.00x15 BALLOON Rudolph Sci EMERGE MR 2.00x20 BALLOON [employer] 6 [place] GuideLiner Rudolph Sci NC EMERGE MR 3.50x20 BALLOON COMPLICATIONS No Complications PROCEDURE MEDICATIONS Fentanyl 50 mcg IV Versed 1 mg IV Versed 1 mg IV Versed 1 mg IV Oxygen: 2 L/min via nasal cannula Brilinta 180 mg PO @ 12/11/2020 08:12:27 Heparin given IA 12/11/2020 08:00:39 Heparin 5000 unit(s) IV 12/11/2020 08:54:00 Verapamil 2.5mg, Ntg 100mcgs, 3000 units of Heparin given IA 12/11/2020 08:00:39 SUMMARY OF HEMODYNAMIC DATA Time AIR REST ECG 07:18:59 AO 155/72 (105) SA 08:03:11 LV 182/4, 14 08:10:31 LV 177/4, 13 08:10:37 LV 180/8, 17 08:11:33 LVp 180/8, 14 08:11:36 AOp 190/71 (117) 08:11:41 Signed By Rik Hall MD On 12/11/2020 10:25:14 Rik Hall MD
[2020-12-11] MEDS: 0.9% Normal Saline 1,000 ML 60 ML IV (11:23)
[2020-12-11] MEDS: Labetalol (Prefilled) 20 MG/4 ML 5 MG IV (11:39)
[2020-12-11] MEDS: Pantoprazole Sodium 20 MG Tablet PO (13:29)
[2020-12-11] MEDS: PARoxetine 10 MG Tablet PO (13:29)
[2020-12-11] MEDS: Magnesium Chloride 64 MG Delay Rel.Tablet 128 MG PO (13:29)
[2020-12-11] MEDS: Dicyclomine 10 MG Capsule PO ×2 (13:30→21:42)
[2020-12-11] MEDS: Fenofibrate 145 MG Tablet PO (13:30)
--- NOTE | 2020-12-11 14:04 | CRPHASE1 ---
Patient Communication PHII Cardiac Rehab Discussed with Patient:: Yes Guide to Cardiac Rehab Given to Patient:: Yes Cardiac Rehab Facility Choice List Given to Patient:: Yes Choice Program [facility] CR PHII:: Communication Given to CR Cable Rigger:: Tor Cortés Phase II Cardiac Rehab:: Yes Sessions:: 36 sessions - 3 days/wk, 12 weeks Cardiac Rehabilitation Info Cardiac Rehabilitation Program Information: Cardiac Rehabilitation is important for patients like you who are recovering from a heart problem. Cardiac rehabilitation programs are recognized as integral to the continued care of the patient with coronary heart disease. The cardiac rehabilitation program is designed to optimize a patient's physical, psychological, and social functioning. Health health care marketing specialist work in cardiac rehabilitation programs and assist you with getting the treatments you need to get stronger and healthier - like exercise, healthy eating habits, and medications. Cardiac rehabilitation has been show to help people with heart problems live longer and have better life enjoyment than people who do not go to cardiac rehabilitation. Please contact the Cardiac Rehabilitation Program at [facility] at in two weeks if you have not heard from them.
--- NOTE | 2020-12-11 14:04 | CRPH1.INSTRU ---
General Education CAD and cardiac anatomy and function:: Patient communicates acknowledgment, Family communicates acknowledgment Explanation of diagnoses and procedures:: Patient communicates acknowledgment, Family communicates acknowledgment Sign/Symptoms of LA:: Patient communicates acknowledgment, Family communicates acknowledgment Antiplatelet therapy: Patient communicates acknowledgment, Family communicates acknowledgment Proper use of NTG-SL: Patient communicates acknowledgment, Family communicates acknowledgment Emergency procedures and activation of EMS: Patient communicates acknowledgment, Family communicates acknowledgment Compliance of all prescribed medications: Patient communicates acknowledgment, Family communicates acknowledgment Smoking Patient Nicotine/Smoking Risk Factors Are:: Never smoked Dyslipidemia Patient Dyslipidemia Risk Factors Are:: Total Cholesterol, Triglycerides, HDL, LDL Recommendations Include:: Lipid profile not available, Reviewed NCEP/ATP guidelines, Therapeutic Lifestyle Change dietary guidelines Dyslipidemia Response Code:: Patient communicates acknowledgment, Family communicates acknowledgment Overweight/Obesity Patient Overweight/Obesity Risk Factors Are:: Obesity - > or = 30 Recommendations Include:: Weight loss of 5-10%, Reduced calorie diet, Exercise 5-7 times/week Overweight/Obesity:: Patient communicates acknowledgment, Family communicates acknowledgment Hypertension Recommendations Include:: Maintain BP <130/85, DASH dietary guidelines, Decrease/maintain normal body weight, Moderation of ETOH Hypertension:: Patient communicates acknowledgment, Family communicates acknowledgment Stress Recommendations Include:: Identification of stressors, and assessment of coping skills, Stress management techniques Stress Response Code:: Patient communicates acknowledgment, Family communicates acknowledgment
--- NOTE | 2020-12-11 14:59 | EKG12_ITS ---
Test Reason : S/P PCI Blood Pressure : / mmHG Vent. Rate : 065 BPM Atrial Rate : 065 BPM P-R Int : 202 ms QRS Dur : 070 ms QT Int : 418 ms P-R-T Axes : 043 -41 069 degrees QTc Int : 434 ms Normal sinus rhythm with sinus arrhythmia Left axis deviation Inferior infarct , age undetermined Abnormal ECG When compared with ECG of 11-DEC-2020 15:02, MANUAL COMPARISON REQUIRED, DATA IS UNCONFIRMED Confirmed by AUBRIE HERNANDEZ, TOR ([id number]), metropolitan editor HERMINIO SERNA ([id number]) on 12/13/2020 10:09:57 AM Referred By: Tor Cortés Confirmed By:TOR CORTÉS MD
[2020-12-11] MEDS: Nitroglycerin Oint 1 INCH PACKET TD ×2 (15:40→23:40)
[2020-12-11] MEDS: Acetaminophen 325 MG Tablet 650 MG PO (21:41)
[2020-12-11] MEDS: MELATONIN 3 MG TABLET PO (21:41)
[2020-12-11] MEDS: Carvedilol 6.25 MG Tablet PO (21:42)
[2020-12-11] MEDS: TICAGRELOR 90 MG TABLET PO (21:42)
[2020-12-12 03:00] VITALS: PULSE 61
[2020-12-12 03:30] VITALS: BP 158/73; PULSE 66; RESP 16; TEMP 36.2; O2SAT 97
[2020-12-12 04:16] VITALS: O2SAT 95
[2020-12-12 05:39] LABS: Hematocrit 38.7 % (37-47); Hemoglobin 12.9 g/dL (12.0-15.0); Mean Corp Hgb Conc 33.3 g/dL (32-36); Mean Corpuscular Hgb 30.9 pg (27.0-32.0); Mean Corpuscular Volume 92.6 fL (81-99); Mean Platelet Vol. 9.7 fl (6.2-12.0); Platelet Count 256 K/mm3 (150-450); RBC Distribution Width CV 12.3 % (11.6-14.6); Red Blood Count 4.18 M/mm3 (4.2-5.4); White Blood Count 8.3 K/mm3 (4.4-11.0)
[2020-12-12 06:02] LABS: ALB/GLOB Ratio 1.2 RATIO (0.9-2.4); AST(SGOT) 15 U/L (15-37); Alanine Aminotransfer ALT/SGPT 20 U/L (13-56); Albumin, Serum 3.5 g/dL (3.2-5.0); Alkaline Phosphatase 45 U/L (45-117); Anion Gap 7 (5-15); BUN 19 mg/dL (7-18); BUN/Creat Ratio 27.9 RATIO (10-20); Chloride 107 mmol/L (98-107); Creatinine, Serum 0.68 mg/dL (0.55-1.02); EST Glomerular Filtration Rate 87 mL/min (>60); Est Glom Filt Rate - Afr Amer 106 mL/min (>60); Estimated Creatinine Clearance 34.02 ml/min; Globulin 2.9 g/dL (2.2-4.2); Glucose 129 mg/dL (74-106); Potassium 3.5 mmol/L (3.5-5.1); Protein, Total 6.4 g/dL (6.4-8.2); Sodium Level 138 mmol/L (136-145)
[2020-12-12 06:06] VITALS: BP 207/78
[2020-12-12] MEDS: amLODIPine 10 MG Tablet PO (06:20)
[2020-12-12] MEDS: Carvedilol 12.5 MG Tablet PO (06:20)
[2020-12-12] MEDS: Nitroglycerin Oint 1 INCH PACKET TD (06:21)
[2020-12-12] MEDS: Losartan Potassium 100 MG Tablet PO (06:22)
[2020-12-12 07:00] VITALS: PULSE 76
--- NOTE | 2020-12-12 07:22 | PCM.PN.CARD ---
Subjective Subjective Patient seen and evaluated. Appears to be doing well. Blood pressure still elevated. Feels a little apprehensive. Objective Data Vital Signs: Vital Signs Temp Pulse Resp BP Pulse Ox 97.2 F L 66 16 207/78 H 95 12/12/20 03:30 12/12/20 03:30 12/12/20 03:30 12/12/20 06:06 12/12/20 04:16 Oxygen Delivery Method Room Air Weight: 173 lb Body Mass Index (BMI) 30.6 Intake & Output: Intake and Output for Last 24 Hours 12/10/20 12/11/20 12/12/20 23:59 23:59 23:59 Intake Total 550 / 790 1263 / 1263 Output Total 2400 / 3100 1000 / 1000 Balance -1850 / -2310 263 / 263 Lab / Micro Data Result Diagrams: 12/12/20 05:08 12/12/20 05:08 Labs: Laboratory Results - last 24 hr 12/12/20 12/12/20 05:08 05:08 WBC 8.3 RBC 4.18 L Hgb 12.9 Hct 38.7 MCV 92.6 MCH 30.9 MCHC 33.3 RDW Std Deviation 42.0 RDW Coeff of Shae 12.3 Plt Count 256 MPV 9.7 Sodium 138 Potassium 3.5 Chloride 107 Carbon Dioxide 24.0 Anion Gap 7 BUN 19 H Creatinine 0.68 Estim Creat Clear Calc 34.02 Est GFR (MDRD) Af Amer 106 Est GFR (MDRD) Non-Af 87 BUN/Creatinine Ratio 27.9 H Glucose 129 H Calcium 9.0 Total Bilirubin 0.80 AST 15 ALT 20 Alkaline Phosphatase 45 Total Protein 6.4 Albumin 3.5 Globulin 2.9 Albumin/Globulin Ratio 1.2 Cardiology Labs/Tests 12/12/20 05:08: WBC 8.3, RBC 4.18 L, Hgb 12.9, Hct 38.7, MCV 92.6, MCH 30.9, MCHC 33.3, Plt Count 256, MPV 9.7 12/12/20 05:08: Sodium 138, Potassium 3.5, Chloride 107, Carbon Dioxide 24.0, Anion Gap 7, BUN 19 H, Creatinine 0.68, Est GFR (MDRD) Af Amer 106, Est GFR (MDRD) Non-Af 87, BUN/Creatinine Ratio 27.9 H, Glucose 129 H, Calcium 9.0, Total Bilirubin 0.80 Rhythm: EKG: ECHO: Stress Test: Cardiac Cath: PCI: CT Surgery: Holter monitor: EPS: PPM: CXR: Chest CT Scan: Physical Exam Const oriented x3 and healthy appearing Orientation / Consciousness: awake HEENT normocephalic Eyes PERRL and conjunctivae normal Neck supple, no JVD and no carotid bruits Chest inspection of chest normal Resp normal respiratory effort and clear to auscultation bilaterally Cardio Palpation: normal PMI Rate: regular rate Rhythm: regular rhythm Heart Sounds: S1 normal and S2 normal Peripheral Pulses: pulses 2+ throughout GI normal to inspection, nondistended, normoactive bowel sounds Extremity normal to inspection and no clubbing, cyanosis or edema Psych mental status grossly normal Assessment & Plan Assessment/Plan (1) History of coronary artery stent placement: PLAN: Patient is status post angioplasty and stenting of the right coronary artery. EKG is unremarkable this morning. Patient has residual LAD disease and will revert back in 2 to 4 weeks for evaluation of the above and stenting. (2) Benign essential hypertension: PLAN: Blood pressure remains elevated. Would make appropriate adjustments. Added Norvasc 10 mg a day Carvedilol increased to 12.5 mg twice a day Continue Cozaar 100 mg a day Continue hydrochlorothiazide 25 mg a day We will follow-up as outpatient
--- NOTE | 2020-12-12 07:30 | PCM.DC ---
Discharge Instructions Follow Up Care Test Results: Test results from this visit will be discussed in further detail at your follow-up appointment, if applicable. Discharge Plan Admission Attending Provider: Tor Cortés Primary Care Provider: Patrick Cowart Discharge Orders/Prescriptions Prescriptions: New amlodipine 10 mg Tablet 10 mg PO DAILY Qty: 90 RF: 2 Brilinta 90 mg Tablet 90 mg PO BID Qty: 180 RF: 2 carvedilol 12.5 mg Tablet 12.5 mg PO BID Qty: 180 RF: 2 Continued omeprazole 20 mg capsule,delayed release(DR/EC) 20 mg PO DAILY RF: 0 fenofibrate nanocrystallized 145 mg tablet 145 mg PO DAILY RF: 0 potassium chloride 10 mEq capsule, extended release 10 meq PO DAILY RF: 0 paroxetine HCl 10 mg tablet 10 mg PO DAILY RF: 0 coenzyme Q10 100 mg tablet 100 mg PO DAILY RF: 0 losartan-hydrochlorothiazide [Hyzaar] 100-25 mg tablet 1 tab PO DAILY RF: 0 magnesium oxide 250 mg magnesium tablet 250 mg PO DAILY RF: 0 dicyclomine 10 mg capsule 10 mg PO BID RF: 0 vitamin B complex Tablet 1 tab PO DAILY RF: 0 aspirin [Adult Low Dose Aspirin] 81 mg tablet,delayed release (DR/EC) 81 mg PO DAILY RF: 0 Discontinued carvedilol 3.125 mg tablet 3.125 mg PO BID RF: 0 No Action melatonin 3 mg capsule 3 mg PO BID PRN (Reason: Insomnia) RF: 0 Referrals / Follow Up: Patrick Cowart MD [Primary Care Provider] - Disposition Disposition (needs filled in before D/C Order can be placed): Home, self care
--- NOTE | 2020-12-12 08:56 | CASEMGMT ---
Pt to be sent home on Brilinta and med e-scribed to [facility] previously. Call to [facility] to check on coverage/co-pay and per tech, pt's co-pay/deductible is $612.84. Pt updated and provided with Brilinta one month free card at this time, voices understanding. Pt aware to check on co-pay for next month and f/u with Dr. Cortés for any concerns. Pt voices no further questions/concerns/needs. Bong VICTOR CM
--- NOTE | 2020-12-12 09:53 | PHA.DC.MC ---
Pharmacy Service has performed discharge medication reconciliation and counseling for this patient. 1. AMLODIPINE 10MG PO DAILY 2. TICAGRELOR 90MG PO BID The patient's discharge medication list was reviewed for discrepancies and discrepancies were resolved. Home Medications aspirin 81 mg tablet,delayed release 81 mg PO DAILY 12/06/20 coenzyme Q10 100 mg tablet 100 mg PO DAILY 12/06/20 dicyclomine 10 mg capsule 10 mg PO BID 12/06/20 fenofibrate nanocrystallized 145 mg tablet 145 mg PO DAILY tab 12/06/20 losartan 100 mg-hydrochlorothiazide 25 mg tablet 1 tab PO DAILY 12/06/20 magnesium oxide 250 mg PO DAILY 12/06/20 melatonin 3 mg capsule 3 mg PO BID PRN cap 12/06/20 omeprazole 20 mg capsule,delayed release 20 mg PO DAILY cap 12/06/20 paroxetine HCl 10 mg tablet 10 mg PO DAILY tab 12/06/20 potassium chloride 10 mEq capsule,extended release 10 meq PO DAILY cap 12/06/20 vitamin B complex 1 tab PO DAILY 12/06/20 amlodipine 10 mg PO DAILY #90 tab 12/12/20 carvedilol 12.5 mg PO BID #180 tab 12/12/20 ticagrelor [Brilinta] 90 mg PO BID #180 tab 12/12/20 The patient was counseled on the following discharge medications and changes in medications for homegoing were reviewed. The Reason for Use, instructions for use, and potential side effects were reviewed for all new medications. The patient's questions regarding all of their medications were answered. The patient was able to verbally demonstrate an understanding of their discharge medications.
[2020-12-12 09:56] VITALS: BP 142/67; PULSE 74; RESP 14; TEMP 36.6; O2SAT 96
[2020-12-12] MEDS: Dicyclomine 10 MG Capsule PO (09:59)
[2020-12-12] MEDS: hydroCHLOROthiazide 25 MG Tablet PO (09:59)
[2020-12-12] MEDS: Pantoprazole Sodium 20 MG Tablet PO (09:59)
[2020-12-12] MEDS: TICAGRELOR 90 MG TABLET PO (09:59)
[2020-12-12] MEDS: Vitamin B Comp W-C Capsule 1 CAP PO (09:59)
[2020-12-12] MEDS: Aspirin E.C. 81 MG Tablet PO (09:59)
[2020-12-12] MEDS: PARoxetine 10 MG Tablet PO (10:00)
[2020-12-12] MEDS: Fenofibrate 145 MG Tablet PO (10:00)
[2020-12-12] MEDS: Magnesium Chloride 64 MG Delay Rel.Tablet 128 MG PO (10:00)
--- NOTE | 2020-12-12 10:16 | PCM.PN.BLA ---
Assessment & Plan Assessment/Plan (1) Hyperlipidemia: PLAN: Will start Lipitor 20 mg a day
--- NOTE | 2020-12-12 10:17 | PCM.DC ---
Discharge Instructions Follow Up Care Test Results: Test results from this visit will be discussed in further detail at your follow-up appointment, if applicable. In addition I will add Lipitor 20 mg a day to your regimen. This will be called to your pharmacy. Discharge Plan Admission Attending Provider: Tor Cortés Primary Care Provider: Patrick Cowart Instructions Additional Instructions / Restrictions: Patient Problems: Altered Health Status related to Hospitalization Patient Goals: *Optimal Level of Health *Keep Appointments *Medication Compliance *Remain Safe Discharge Orders/Prescriptions Prescriptions: New amlodipine 10 mg Tablet 10 mg PO DAILY Qty: 90 RF: 2 Brilinta 90 mg Tablet 90 mg PO BID Qty: 180 RF: 2 carvedilol 12.5 mg Tablet 12.5 mg PO BID Qty: 180 RF: 2 Continued omeprazole 20 mg capsule,delayed release(DR/EC) 20 mg PO DAILY RF: 0 fenofibrate nanocrystallized 145 mg tablet 145 mg PO DAILY RF: 0 potassium chloride 10 mEq capsule, extended release 10 meq PO DAILY RF: 0 paroxetine HCl 10 mg tablet 10 mg PO DAILY RF: 0 coenzyme Q10 100 mg tablet 100 mg PO DAILY RF: 0 losartan-hydrochlorothiazide [Hyzaar] 100-25 mg tablet 1 tab PO DAILY RF: 0 magnesium oxide 250 mg magnesium tablet 250 mg PO DAILY RF: 0 dicyclomine 10 mg capsule 10 mg PO BID RF: 0 vitamin B complex Tablet 1 tab PO DAILY RF: 0 aspirin [Adult Low Dose Aspirin] 81 mg tablet,delayed release (DR/EC) 81 mg PO DAILY RF: 0 Discontinued carvedilol 3.125 mg tablet 3.125 mg PO BID RF: 0 No Action melatonin 3 mg capsule 3 mg PO BID PRN (Reason: Insomnia) RF: 0 Referrals / Follow Up: Patrick Cowart MD [Primary Care Provider] - (please call to make appointment. ) Disposition Disposition (needs filled in before D/C Order can be placed): Home, self care
== END 2020-12-12 07:29 | disposition home or self-care (01) ==
LOC: CLSP 07:00 → PCU 12-12 07:28
PROVIDERS: Specialist; PCP Family Medicine; Referring Provider Internal Medicine Cardiovascular Disease; Visit Provider Internal Medicine Cardiovascular Disease
DX: I25.119 Atherosclerotic heart disease of native coronary artery with unspecified angina pectoris (principal); K21.9 Gastro-esophageal reflux disease without esophagitis; I10 Essential (primary) hypertension; F32.9 Major depressive disorder, single episode, unspecified; M50.30 Other cervical disc degeneration, unspecified cervical region; M48.061 Spinal stenosis, lumbar region without neurogenic claudication; Z68.30 Body mass index [BMI] 30.0-30.9, adult; Z79.899 Other long term (current) drug therapy; Z79.82 Long term (current) use of aspirin
CPT/HCPCS: 36415; 80053; 85027; 92928; 93005; 93458; 99152; 99153; J7030; J7040; Q9967; C1725; C1769; C1874; C1887; C1894; C9600; J1327

== ENCOUNTER 2020-12-26 09:59 | Day surgery (SDC) | payer MEDICARE, OTHER, SELFPAY ==
[2020-12-10 12:59] VITALS: BMI 30.6
[2020-12-17 10:06] LABS: Absolute Neutrophil Count 4.1 X10^3/uL (2.0-7.7); Basophil# 0.04 X10^3/uL; Basophil% 0.7 % (0-1); Eosinophil# 0.06 X10^3/uL; Eosinophils% 1.1 % (0-5); Hematocrit 38.4 % (37-47); Hemoglobin 12.7 g/dL (12.0-15.0); Lymphocyte % 19.3 % (19-41); Mean Corp Hgb Conc 33.1 g/dL (32-36); Mean Corpuscular Volume 93.7 fL (81-99); Mean Platelet Vol. 9.9 fl (6.2-12.0); Monocyte# 0.35 X10^3/uL; Monocyte% 6.2 % (0-10); NRBC Flagged by Analyzer 0 % (0-5); Neutrophil # 4.11 X10^3/uL (2.7-7.7); Neutrophil % 72.2 % (47-70); Platelet Count 320 K/mm3 (150-450); RBC Distribution Width CV 12.5 % (11.6-14.6); RBC Distribution Width SD 43.1 fl (35.1-43.9); White Blood Count 5.7 K/mm3 (4.4-11.0)
[2020-12-17 10:44] LABS: Anion Gap 10 (5-15); BUN 32 mg/dL (7-18); BUN/Creat Ratio 34.5 RATIO (10-20); Calcium,Total 9.6 mg/dL (8.5-10.1); Chloride 108 mmol/L (98-107); Creatinine, Serum 0.93 mg/dL (0.55-1.02); EST Glomerular Filtration Rate 61 mL/min (>60); Est Glom Filt Rate - Afr Amer 74 mL/min (>60); Glucose 216 mg/dL (74-106); Potassium 3.7 mmol/L (3.5-5.1); Sodium Level 140 mmol/L (136-145)
[2020-12-25 07:37] VITALS: BMI 30.6
[2020-12-26] VITALS (12 sets, daily range): BP systolic 124–157; BP diastolic 51–66; PULSE 60–71; RESP 17–18; TEMP 36.7–36.8; O2SAT 95–100; BMI 30.3
--- NOTE | 2020-12-26 12:15 | EKG12_ITS ---
Test Reason : Blood Pressure : / mmHG Vent. Rate : 063 BPM Atrial Rate : 063 BPM P-R Int : 198 ms QRS Dur : 074 ms QT Int : 406 ms P-R-T Axes : 043 -40 051 degrees QTc Int : 415 ms Normal sinus rhythm Left axis deviation Anterior infarct , age undetermined Abnormal ECG When compared with ECG of 12-DEC-2020 05:39, Anterior infarct is now Present No significant change was found Confirmed by DORIS HERNANDEZ, MAURISIO ([id number]), publications editor HERMINIO SERNA ([id number]) on 12/27/2020 12:56:54 PM Referred By: Rashawn Hall Confirmed By:SHELBY HALL MD
--- NOTE | 2020-12-26 12:34 | CL.I_ITS ---
Patient Name: VENU RAMIREZ Study Date: 12/26/2020 Performing: Rik Hall MD Ht: 63 inches 160 cm : 1935 Wt: 172.2 lbs 78 kg Age: 85 Gender: female BSA: 1.81 PROCEDURE(S) PERFORMED NN70-NMV W OR WO PTCA, SINGLE CORONARY ARTERY CLINICAL PROFILE AND CO-MORBIDITIES Indications: staged PCI of LAD Heart Failure: None CONCLUSIONS Successful FRANCO to mLAD RECOMMENDATIONS DESCRIPTION OF PROCEDURE The patient arrived to the procedure lab. The risks and benefits of the procedure as well as a full d escription of our services here and current unavailability of surgical backup were fully explained to the patient and/or their significant other prior to the catheterization. The Timeout was completed, verifying the correct patient and procedure. The patient's procedural site was prepped and draped in the usual fashion. Local anesthetic was given subcutaneously to right radial region with Lidocaine 2% . Using a modified Seldinger technique, arterial access was obtained via the right radial artery, a 6 Fr sheath was inserted.. XB 3.0 Guide catheter was inserted and engaged into the LCA. BMW Guide wire was advanced to the L AD. Emerge 2.50x15 Balloon catheter was inserted. PTCA balloon inflated at 10 atms for 18 secs. PTCA balloon inflated at 6 atms for 6 secs. PTCA balloon inflated at 6 atms for 6 secs. PTCA balloon infla malcolm at 6 atms for 5 secs. PTCA balloon inflated at 10 atms for 9 secs. PTCA balloon inflated at 6 gerald s for 12 secs. PTCA balloon inflated at 6 atms for 5 secs. PTCA balloon inflated at 6 atms for 5 secs . Angiogram performed post balloon dilatation. Orsiro 2.75x26 Drug Eluting stent was inserted. [facility] rge 2.75x15 Balloon catheter was inserted. PTCA balloon inflated at 14 atms for 33 secs. PTCA balloon inflated at 12 atms for 5 secs. PTCA balloon inflated at 12 atms for 11 secs. Angiogram performed po st balloon dilatation. The arterial sheath was pulled and a TR Band was applied for hemostasis with 15ml air INTERVENTION INFORMATION LESION SITE: LAD (Mid) Lesion Complexity: High/C, chronic total occlusion: No, lesion at bifurcation: Yes, thrombus present: No, lesion length: 24 mm, culprit lesion: Yes, Previously treated lesion: No Pre Stenosis: 80 % Pre intervention MADELINE flow: 3 PROCEDURE: Drug Eluting Stent with pre and post dilatation Post Stenosis: 0 % Post intervention MADELINE flow: 3 Lesion Devices: Gregg .014 BMW [place] Straight 190cm Cardinal 6 Fr XB3.0 100cm Guide Catheter Rudolph Sci EMERGE MR 2.50x15 BALLOON Rudolph Sci NC EMERGE MR 2.75x15 BALLOON COMPLICATIONS No Complications PROCEDURE MEDICATIONS Versed 1 mg IV Fentanyl 50 mcg IV Oxygen: 2 L/min via nasal cannula Heparin given IA 12/26/2020 10:59:43 Heparin 3000 unit(s) IV 12/26/2020 11:00:37 Verapamil 2.5mg, Ntg 100mcgs, 2000 units of Heparin given IA 12/26/2020 10:59:43 SUMMARY OF HEMODYNAMIC DATA Time AIR REST ECG 10:16:40 AO 134/65 (91) SA 11:01:46 Signed By Rik Hall MD On 12/26/2020 12:33:47 Rik Hall MD
[2020-12-26] MEDS: 0.9% Normal Saline 1,000 ML 60 ML IV (13:30)
--- NOTE | 2020-12-26 15:08 | CRPHASE1 ---
Patient Communication Former Patient:: Phase I - Pt is a previous staged PCI PHII Cardiac Rehab Discussed with Patient:: Yes Guide to Cardiac Rehab Given to Patient:: Yes Cardiac Rehab Facility Choice List Given to Patient:: Yes - Pt chooses [facility] Choice Program [facility] CR PHII:: Communication Given to CR, Refer to [employer] [employer] Refer Phase II Cardiac Rehab:: Yes Sessions:: 36 sessions - 3 days/wk, 12 weeks Cardiac Rehabilitation Info Cardiac Rehabilitation Program Information: Cardiac Rehabilitation is important for patients like you who are recovering from a heart problem. Cardiac rehabilitation programs are recognized as integral to the continued care of the patient with coronary heart disease. The cardiac rehabilitation program is designed to optimize a patient's physical, psychological, and social functioning. Health career resource specialist work in cardiac rehabilitation programs and assist you with getting the treatments you need to get stronger and healthier - like exercise, healthy eating habits, and medications. Cardiac rehabilitation has been show to help people with heart problems live longer and have better life enjoyment than people who do not go to cardiac rehabilitation. Please contact the Cardiac Rehabilitation Program at [facility] at in two weeks if you have not heard from them.
--- NOTE | 2020-12-26 15:11 | CRPH1.INSTRU ---
General Education CAD and cardiac anatomy and function:: Patient communicates acknowledgment Explanation of diagnoses and procedures:: Patient communicates acknowledgment Sign/Symptoms of NM:: Patient communicates acknowledgment Antiplatelet therapy: Patient communicates acknowledgment Proper use of NTG-SL: Not instructed Emergency procedures and activation of EMS: Patient communicates acknowledgment Compliance of all prescribed medications: Patient communicates acknowledgment Smoking Nicotine/Smoking Response Code:: Patient communicates acknowledgment Dyslipidemia Dyslipidemia Response Code:: Patient communicates acknowledgment Overweight/Obesity Overweight/Obesity:: Patient communicates acknowledgment Hypertension Hypertension:: Patient communicates acknowledgment Heart Disease Heart Disease Response Code:: Patient communicates acknowledgment Diabetes Diabetes:: Patient communicates acknowledgment Metabolic Syndrome Metabolic Syndrome Response Code:: Patient communicates acknowledgment Sedentary Sedentary Response Code:: Patient communicates acknowledgment Stress Stress Response Code:: Patient communicates acknowledgment
[2020-12-26] MEDS: Dicyclomine 10 MG Capsule PO (16:26)
[2020-12-26] MEDS: Atorvastatin Calcium 20 MG Tablet PO (21:53)
[2020-12-26] MEDS: Carvedilol 12.5 MG Tablet PO (21:54)
[2020-12-26] MEDS: TICAGRELOR 90 MG TABLET PO (21:54)
[2020-12-27] VITALS (8 sets, daily range): BP systolic 112–144; BP diastolic 48–68; PULSE 50–63; RESP 16–18; TEMP 36.6–37.1; O2SAT 96–97
[2020-12-27] MEDS: Dicyclomine 10 MG Capsule PO (06:13)
[2020-12-27 06:33] LABS: Hematocrit 35.1 % (37-47); Hemoglobin 11.7 g/dL (12.0-15.0); Mean Corp Hgb Conc 33.3 g/dL (32-36); Mean Corpuscular Hgb 30.8 pg (27.0-32.0); Mean Corpuscular Volume 92.4 fL (81-99); Mean Platelet Vol. 9.7 fl (6.2-12.0); Platelet Count 272 K/mm3 (150-450); RBC Distribution Width CV 12.3 % (11.6-14.6); RBC Distribution Width SD 41.7 fl (35.1-43.9); White Blood Count 5.9 K/mm3 (4.4-11.0)
[2020-12-27 07:02] LABS: ALB/GLOB Ratio 1.2 RATIO (0.9-2.4); AST(SGOT) 14 U/L (15-37); Alanine Aminotransfer ALT/SGPT 19 U/L (13-56); Albumin, Serum 3.5 g/dL (3.2-5.0); Alkaline Phosphatase 38 U/L (45-117); Anion Gap 7 (5-15); BUN 23 mg/dL (7-18); Calcium,Total 9.2 mg/dL (8.5-10.1); Chloride 110 mmol/L (98-107); Creatinine, Serum 0.74 mg/dL (0.55-1.02); EST Glomerular Filtration Rate 79 mL/min (>60); Est Glom Filt Rate - Afr Amer 96 mL/min (>60); Estimated Creatinine Clearance 34.02 ml/min; Globulin 2.8 g/dL (2.2-4.2); Glucose 106 mg/dL (74-106); Potassium 3.2 mmol/L (3.5-5.1); Protein, Total 6.3 g/dL (6.4-8.2); Sodium Level 140 mmol/L (136-145)
[2020-12-27] MEDS: Aspirin E.C. 81 MG Tablet PO (08:29)
[2020-12-27] MEDS: Vitamin B Comp W-C Capsule 1 CAP PO (08:29)
[2020-12-27] MEDS: Fenofibrate 145 MG Tablet PO (08:29)
[2020-12-27] MEDS: hydroCHLOROthiazide 25 MG Tablet PO (08:29)
[2020-12-27] MEDS: Pantoprazole Sodium 20 MG Tablet PO (08:29)
[2020-12-27] MEDS: Potassium Chloride Oral Tablet 10 MEQ PO (08:30)
[2020-12-27] MEDS: amLODIPine 10 MG Tablet PO (08:30)
[2020-12-27] MEDS: Losartan Potassium 100 MG Tablet PO (08:30)
[2020-12-27] MEDS: TICAGRELOR 90 MG TABLET PO (08:30)
[2020-12-27] MEDS: PARoxetine 10 MG Tablet PO (08:31)
[2020-12-27] MEDS: Carvedilol 12.5 MG Tablet PO (08:37)
[2020-12-27] MEDS: Magnesium Chloride 64 MG Delay Rel.Tablet 128 MG PO (08:41)
--- NOTE | 2020-12-27 10:00 | EKG12_ITS ---
Test Reason : AM EKG Blood Pressure : / mmHG Vent. Rate : 055 BPM Atrial Rate : 055 BPM P-R Int : 210 ms QRS Dur : 072 ms QT Int : 436 ms P-R-T Axes : 044 -32 024 degrees QTc Int : 417 ms Sinus bradycardia with sinus arrhythmia with 1st degree A-V block Left axis deviation Abnormal ECG When compared with ECG of 26-DEC-2020 14:36, MANUAL COMPARISON REQUIRED, DATA IS UNCONFIRMED Confirmed by DORIS HERNANDEZ, MAURISIO ([id number]), development editor HERMINIO SERNA ([id number]) on 12/27/2020 12:57:58 PM Referred By: Rashawn Hall Confirmed By:SHELBY HALL MD
--- NOTE | 2020-12-27 12:35 | PCM.DC ---
Discharge Instructions Diet Discharge Diet: No restrictions (You may continue your normal diet.) Activity May resume sexual activity in: 1 week (if no groin problems occur.) Lifting Restrictions: 10 pounds and also avoid any pushing or pulling for 3 days after your test. Additional Activity Instructions:: You must have someone drive you home. Do not drive until instructed by your doctor. You must have someone stay with you all night after your test. Rest in bed or on the couch until the next morning. Limit the number of times you go up and down stairs the day of your test. Dressing / Incision Call your doctor if your incision/area has: Increased Pain/ Swelling, Increased Redness, Foul Smelling Discharge and Swelling at the incision site Call your doctor if you observe: Fever of 101 or Higher Additional Dressing/Incision Instructions:: Keep the dressing (bandage) on until the next morning. You may then shower, but do not take a tub bath for 5 days after your test. It is normal to have some tenderness and discomfort at the puncture site. Sometimes bruising also occurs. However, if pain, numbness, or coldness occurs below the puncture site (in your leg, toes, arms or fingers) call your doctor at once. You may have a small, marble sized knot at the puncture site. This is normal. Do not rub it. It will go away in 4-6 weeks. Bleeding can occur from the area where the puncture was done. Blood may spurt or drip from the site. If blood spurts, apply pressure right away to stop bleeding and call 911. Although rare, bleeding into the tissue (hematoma) can also occur. If this happens, a large, firm area goose egg under the skin will appear. If any of these occur, lie down as flat as you can and have someone apply firm pressure to the cath site with a gauze pad or a clean washcloth for 10-15 minutes. Call 911 or go to the Emergency Department. Follow Up Care Test Results: Test results from this visit will be discussed in further detail at your follow-up appointment, if applicable. Discharge Plan Admission Primary Reason for Your Visit: staged PCI of LAD Attending Provider: Rashawn Hall Primary Care Provider: Patrick Cowart Discharge Orders/Prescriptions Prescriptions: Continued melatonin 3 mg capsule 3 mg PO BID PRN (Reason: Insomnia) RF: 0 omeprazole 20 mg capsule,delayed release(DR/EC) 20 mg PO DAILY RF: 0 fenofibrate nanocrystallized 145 mg tablet 145 mg PO DAILY RF: 0 potassium chloride 10 mEq capsule, extended release 10 meq PO DAILY RF: 0 paroxetine HCl 10 mg tablet 10 mg PO DAILY RF: 0 coenzyme Q10 100 mg tablet 100 mg PO DAILY RF: 0 losartan-hydrochlorothiazide [Hyzaar] 100-25 mg tablet 1 tab PO DAILY RF: 0 magnesium oxide 250 mg magnesium tablet 250 mg PO DAILY RF: 0 dicyclomine 10 mg capsule 10 mg PO BID RF: 0 vitamin B complex Tablet 1 tab PO DAILY RF: 0 aspirin [Adult Low Dose Aspirin] 81 mg tablet,delayed release (DR/EC) 81 mg PO DAILY RF: 0 amlodipine 10 mg Tablet 10 mg PO DAILY Qty: 90 RF: 2 Brilinta 90 mg Tablet 90 mg PO BID Qty: 180 RF: 2 carvedilol 12.5 mg Tablet 12.5 mg PO BID Qty: 180 RF: 2 atorvastatin [Lipitor] 20 mg tablet 20 mg PO QHS Qty: 90 RF: 2 Referrals / Follow Up: Patrick Cowart MD [Primary Care Provider] - Disposition Disposition (needs filled in before D/C Order can be placed): Home, Self Care
--- NOTE | 2020-12-27 12:43 | PN_ITS ---
Progress Note Discharge summary Date of admission: 12/26/2020 Date of discharge: 12/27/2020 Reason for the hospital visit: For staged PCI of LAD Hospital course: Patient underwent the procedure without any complications. She had an uneventful hospital course. She is being discharged home in a stable condition. She will follow-up with her primary care physician and her primary medical sales representative Dr. Cortés.
--- NOTE | 2020-12-27 13:00 | CASEMGMT ---
RN CM NOTE: Pt being discharged. RN CM to room to talk w/pt. Introduced self and role of RN OMAR. Pt's and daughter, who is a nurse, are at bedside. Pt states she has a good support system. Lives w/her and dtr is close-by. Pt denies having any discharge planning needs/concerns. Instructed to ask for CM if any needs arise. Galina CRUZN RN CM
== END 2020-12-27 12:35 | disposition home or self-care (01) ==
LOC: CLSP 10:00 → PCU 12-27 09:20
PROVIDERS: Internal Medicine Cardiovascular Disease; PCP Family Medicine; Referring Provider Specialist; Visit Provider Specialist
DX: I35.0 Nonrheumatic aortic (valve) stenosis (principal); R06.00 Dyspnea, unspecified; R07.89 Other chest pain; I10 Essential (primary) hypertension; Q43.3 Congenital malformations of intestinal fixation; M50.30 Other cervical disc degeneration, unspecified cervical region; F32.9 Major depressive disorder, single episode, unspecified; G25.0 Essential tremor; K21.9 Gastro-esophageal reflux disease without esophagitis; E78.5 Hyperlipidemia, unspecified; I89.0 Lymphedema, not elsewhere classified; M99.02 Segmental and somatic dysfunction of thoracic region; M99.01 Segmental and somatic dysfunction of cervical region; M76.32 Iliotibial band syndrome, left leg; M48.061 Spinal stenosis, lumbar region without neurogenic claudication; Z86.711 Personal history of pulmonary embolism; Z79.82 Long term (current) use of aspirin; Z79.899 Other long term (current) drug therapy
CPT/HCPCS: 36415; 80048; 80053; 85025; 85027; 92928; 93005; 99152; 99153; J7030; J7040; Q9967; C1725; C1769; C1874; C1887; C1894; C9600

== ENCOUNTER → 2021-01-11 12:50 | Outpatient (CLI) | payer MEDICARE, OTHER, SELFPAY ==
[2020-12-26 11:59] VITALS: BMI 30.3
[2021-01-11 10:17] VITALS: BMI 29.9
--- NOTE | 2021-01-11 13:00 | PCM.CR.HP2 ---
CR - History & Physical - General Arrival date:: 01/11/21 Arrival time:: 13:01 Date of Referral:: 12/26/20 Date of CR Evaluation:: 01/11/21 Referring Physician: Dr. Tor Cortés Primary Diagnosis: PCI with Stent - History of Present Cardiac Event Onset Date: Enter Onset Date of cardiac illnesses in Comment field below PTCA or coronary stenting:: Yes - 12/10/2020 - Sleep Disorder Evaluation Hx of Sleep Apnea: No Do you snore loudly (louder than talking or can be heard through closed doors)?: No Do you often feel tired/ fatigued/ sleepy during daytime?: No Has anyone observed you stop breathing during sleep?: No History of Hypertension (for STOP score): Yes STOP Results: Negative - Medications Home Medications: Ambulatory Orders Medication Instructions Recorded aspirin 81 mg tablet,delayed 81 mg PO DAILY 12/06/20 release coenzyme Q10 100 mg tablet 100 mg PO DAILY 12/06/20 dicyclomine 10 mg capsule 10 mg PO BID 12/06/20 fenofibrate nanocrystallized 145 145 mg PO DAILY tab 12/06/20 mg tablet losartan 100 1 tab PO DAILY 12/06/20 mg-hydrochlorothiazide 25 mg tablet magnesium oxide 250 mg PO DAILY 12/06/20 melatonin 3 mg capsule 3 mg PO BID PRN cap 12/06/20 omeprazole 20 mg capsule,delayed 20 mg PO DAILY cap 12/06/20 release paroxetine HCl 10 mg tablet 10 mg PO DAILY tab 12/06/20 potassium chloride 10 mEq 10 meq PO DAILY cap 12/06/20 capsule,extended release vitamin B complex 1 tab PO DAILY 12/06/20 Brilinta 90 mg PO BID #180 tab 12/12/20 amlodipine 10 mg PO DAILY #90 tab 12/12/20 carvedilol 12.5 mg PO BID #180 tab 12/12/20 atorvastatin 20 mg tablet 20 mg PO QHS #90 tab 12/13/20 - Allergies Allergies/Adverse Reactions: Allergies escitalopram [From Lexapro] Allergy (Unknown, Verified 01/11/21 10:18) unknown sertraline [From Zoloft] Allergy (Unknown, Verified 01/11/21 10:18) unknown naproxen [From Aleve] Adverse Reaction (Verified 01/11/21 10:18) Itching Advanced Directives - Advanced Directives Power of Prop And Scenery Maker: Yes Living Will: Yes Advance Directives Information Provided: Yes Advance Directives on File: Yes DNR Order?:: No - MOLST See MOLST form: No Past Medical History - Covid-19 Screening Fever: No Unexplained muscle aches: No Current respiratory symptoms: No Upper respiratory infections symptoms: No Gastro-intestinal symptoms: No Txm-Foqn-[id number] symptoms: No Has tested positive for COVID-19 in last 30 days: No Had contact w/person w/symptoms or Covid-19 (+) last 14 days: No Has High Risk Exposures ID'd by Health dept/Inf Control team: No 65 years or older:: Yes Lives in Assisted Living facility:: No Has a chronic lung disease or moderate to severe asthma:: No Immunocompromised:: No Severely obese (Body Mass Index of 40 or higher):: No Diabetic:: No Has chronic kidney disease undergoing dialysis:: No Has liver disease:: No - Past Medical Illness Medical History: Past Medical History (Last Reviewed 01/11/21 @ 11:[address] 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 Tor Cortés MD) History of arthroscopy of left knee Z98.890 History of bilateral cataract extraction Z98.41, Z98.42 History of coronary artery stent placement Onset Date: 12/26/20 Z95.5 PCI-FRANCO-Mid RCA w/ 3.5 x 40 mm and 3.5 x 15 mm Orsiro Stent 12/10/20; PCI-FRANCO-Mid Lad w/ 2.75 x 26 mm Orsiro Stent 12/26/20 History of hemorrhoidectomy Z98.890 History of hysterectomy Z90.710 History of repair of rectocele Z98.890 History of tonsillectomy Z90.89 - Family History Summary Family History: Family History (Last Reviewed 01/11/21 @ 11:[address] Tor Cortés MD) Grandfather Ward's disease Father CAD (coronary artery disease) Sister CAD (coronary artery disease) Hypertension Gout Mother Hypertension CHF (congestive heart failure) Grandfather Cancer Prostate Grandmother CVA (cerebral vascular accident) Daughter Factor V Leiden Social History - Smoking History Smoking Status: Never smoker Hx Tobacco Use: No Hx Smoking Exposure: No - Alcohol Use Alcohol Usage: No - Substance Abuse Hx Substance Use: No - Occupation Occupation (List type of work in comments):: Retired - Hobbies, Recreation, Social Activities Hobbies: Other - gardening, cooking Recreational Activities: I am able to engage in all my recreational activities Social Environment - Status Marital Status: - Current Living Arrangements Living Environment:: Spouse - Children How many children do you have?: 3 Do any of your children live nearby?: Yes - Safety Do you feel safe in your surroundings?: Yes - Assistance Do you need any assistance at home?: no Review of Systems - Review of Systems Hints: Right click = Denies (Slash). Left click = Reports ([place]) Review of Present Symptoms: Reports: Shortness of Breath at Rest, Shortness of Breath with Exertion, Appetite - Normal, Appetite - Special Diet. Denies: PVD, Operative Discomfort, Angina, Wound Healing, Dizziness/Lightheadedness, Fatigue, Heart Arrhythmia/Irregularities, Sleep - Normal, Sexual Changes - Pain Is Patient Pain Free?: No Pain Location: lower extremity Pain Level: 5/10 Risk Factor Assessment - Chief Complaint Chief Complaint: PCI with stent - Vital Signs Pulse Ox: 96 Blood Pressure: 100/48 - Pulse Pulse Rate: 56 Pulse Rhythm: Regular - Diabetes Nutrition Referral for Diabetes: No - Obesity Height: 5 ft 3 in Weight:: 78.471 kg Weight in Pounds: 173.0 lbs Body Mass Index (BMI): 30.6 - Physical Inactivity Physical Inactivity: None - none since COVID - Risk Stratification Risk Guidelines: Lowest Risk: Risk Factor for Smoking, Moderate Risk: Risk Factor for Dyslipidemia, Risk Factor for Diabetes, Risk Factor for Obesity, Risk Factor for Hypertension, Risk Factor for Sedentary Lifestyle, Risk Factor for Depression - Family History Family History: Family History (Last Reviewed 01/11/21 @ 11:[address] Tor Cortés MD) Grandfather Ward's disease Father CAD (coronary artery disease) Sister CAD (coronary artery disease) Hypertension Gout Mother Hypertension CHF (congestive heart failure) Grandfather Cancer Grandmother CVA (cerebral vascular accident) Daughter Factor V Leiden Motivation - Motivation to Participate On a scale of 1 to 10, how prepared are you to commit to attending program?: 10 What do you see as barriers to successfully being able to complete the program?: none What do you see as the benefits of succesfully completing the program? In other words, what do you hope to get out of participating in the program?: improved health Are there issues you are dealing with that will interfere with completing the program?: no Do you have a spouse or signficant other, family or friends who will help support you to complete the program?: yes
--- NOTE | 2021-01-11 13:01 | PCM.CR.ITP ---
Diagnosis - General Information Admitting Diagnosis: PCI with stent Personal Learning Style:: Audio/Visual Barriers to Learning: Vision Impairment Gave educational material for:: Treating Heart Disease, Emotions & Heart Disease, Stress Management & Relaxation, Sleep Disorders & Heart Disease, How The Heart Works, What it means to have Heart Disease, How Coronary Artery Disease is Diagnosed, Heart Procedures, What Heart Medications Do, Risk Factors & Modifications, Living an Active Life, Nutrition - Education/Goals Cardiac Rehabilitation Goals: 1. Maintain the individual as the primary focus of care. 2. To improve the patient's quality of life. 3. Identification of cardiac risk factors and provide cardiac risk factor management. 4. Enhance the psychosocial status of the patient. 5. Reconditioning enough to allow the patient to resume customary activities. 6. Control symptoms of cardiac disease Personal Goals: Initial Assessment: Improve management of stress and emotions, Improve energy level, Get back to work, or to resume activities faster, Improve knowledge of cardiac disease, Improve muscle strength and endurance, Improve diet and eating habits (eat healthier), Control risk factors (learn risk factor modification) Scale for measuring improvement of personal goals: Enter appropriate number in Comments. 2 = Unchanged. 3 = Slightly Better. 4 = Moderate Improvement. 5 = Met my Goal - Diagnosis & Disease Process Outcomes/Goals: Pt IDs own risk factors & lifestyle modifications by Session 10, Verbalizes symptoms of angina & response by session 3., Pt independently manages, Other Additional Outcomes/Goals: Plan/Interventions: Assist Pt to ID & engage in lifestyle modification to reduce CVD risk, Instruct on individual risk factors, Review symptoms of angina & emergency actions, Review secondary diagnosis & identify educational needs., Other see comment 30 day Reassessments:: Not Met 30 day Reassessments:: Not Met 30 day Reassessments:: Not Met 30 day Reassessments:: Not Met Final Reassessments:: Not Met - Safety Referral to Physical Therapy: No Referral to [facility] Case Management: No Fall Risk Assessed:: Yes Assistive Devices:: None Exercise - Initial Assessment - Visit Date of Eval: 01/11/21 - initial eval Mets: Pre-: >3 METS for 30 minutes by discharge - Physician Prescribed Exercise Modalities: Treadmill, Biodyne, Rower, Airdyne, NuStep, SciFit Frequency: 3x/week for 12 weeks [36 sessions] Intensity: 60-80% of age predicted maximum heart rate reserve EKG Type: sinus adam with sinus arrhythmia wih 1st degree A-V block - Outcomes & Goals Goals:: Verbalizes understanding of THR, RPE & goal METS by session 6, Documents in home exercise log/reports 30 min aerobic 5 day/wk by DC, Demonstrates accurate pulse taking by DC, Other additional outcome/goals: see below - Intervention & Plan Exercise Program Goals: Instruct on personal THR & RPE, Instruct on MET level & personal MET goal, Show patient to take own pulse /validate performance until accurate, Instruct on home exercise, Other additional plan/int - Physical Activity Home Exercise Physical Activity - Home Exercise: Safe Exercise, Warm-up, Self-monitoring, Cool-Down, Home Exercise > 30 min Daily, Sitting Time <3 hours/daily - Outcomes & Goals Outcomes/Goals: Demonstrates correct Warm-up/exercise Cool-Down (S3) if = 2.5 METs, Verbalizes symptoms of exercise intolerance by Session 3 (S3), Demonstrate safe equipment use (S3) & follows exercise prescrition (6), Other: See below - Intervention & Plan Plan/Intervention: Instruct warm-up & cool-down if exercising at > 2 METs, Instruct on symptoms of exercise intolerance & actions to take, Instruct & monitor on saf, Assess intial functional capacity & safety risk, Other See below Nutrition - Initial Assessment - Program Goals Nutrition Program Goals: LDL <100 optimal. 100 - 129 Near optimal. 130 - 159 Borderline High. 160 - 189 High. Total Cholesterol <200 desirable. 200 - 239 Borderline High. >/= 240 High. HDL < 40 Low >/=60 High. Triglycerides <150 desirable. <199 optimal. VlDL 5 - 40. HgbA1C <7%. BMI <25 Patient has diagnosis of Hyperlipidemia (ICD E78)?: Yes - Visit Date of Assessment:: 01/11/21 - initial eval - Cholesterol/Lipids Determine presence & major risk factors that modify LDL goal: Hypertension or hypertensive medication, Low HDL cholesterol <40 mg/dL*, Family history of premature CHD in Male < 55 years: female <65 yearsFa, Age men > 45 years; women >/= 55 years Outcomes/Goals: Pt IDs own risk factors & lifestyle modifications by Session 10, Verbalizes symptoms of angina & response by session 3., Pt independently manages, Other Additional Outcomes/Goals: Intervention/Plan: Advocate for lipid panel cholesterol medication if applicable, Instruct on personal lipid levels & lipid goals/NCEP guidelines, Instruct on cholesterol, Other additional plan/int Referral to dietitian:: No - pt declines - Diabetes (Other Core Measures) Diabetes Type: Not Applicable - Weight Mgt (Other Care) Height: 5 ft 3 in Weight:: 78.471 kg BMI: 30.6 Diagnosis Overweight/Obesity BMI> 30% 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: Yes Outcomes/Goals: Pt sets, maintains & shows weight loss goal & trend during rehab, Other additional outcomes/goals Intervention/Plan: Instruct on ideal BMI & set weight loss goal w/patient, Assist pt to ID & incorporate diet changes for weight loss by S9, Refer to Structured Weight Loss program as appropriate, Encourage goal of using 250-300dcal per session for weight loss, Other additional plan/interventions - Healthy Eating Habits Will attend diet classes:: Yes Outcomes/Goals:: Consume diet rich in vegs,fruits,whole grain/high fiber,fish,lean meat, Limit sat/trans fats,cholesterol & added salts & sugars, Other additional outcome/goals: Intervention/Plan:: Assess current eating habits, Other Additional plan/interventions - Education Gave educational materials for:: Signs & symptoms of hypoglycemia, Signs & symptoms of hyperglycemia, Relate diabetes to coronary artery disease, Healthy eating Nutrition - 30-Day Assessment Nutrition - 60-Day Assessment Nutrition - 90-Day Assessment Nutrition - Final Assessment Medical - Initial Assessment - Visit Date of Eval: 01/11/21 - initial eval - Medication Compliance Preventative Medication(s):: Statin/lipid, ARB (Angiotensi Rcap) H/O mental health issues: depression, anxiety, or addiction?: No Doesn?t believe in the benefits of treatment?: No Believes medications are unnecessary or harmful?: No Has a concern about medication side effects?: No Expresses concern over the cost of medications?: No Outcomes/Goals: Verbalizes medications,desired effect & common side effects @ DC, Pt self-reports following medication regimen, Keeps card in wallet w/medications listed by DC, Other additional outcome/goals: Interventions/plans: Instruct on medication effects & side effects, Review medication list w/patient every two weeks, Instruct importance of taking meds as ordered & assist problem solving, Other additional - Tobacco Use Tobacco Use: Non-smoker Do you use smokeless tobacco?: No - Hypertension Hypertension Diagnosis:: Hypertension ICD-10 I10 [place] [employer] Hypertension Guidelines: [place] [employer] Hypertension Guidelines. Normal BP Less than 120/80. Elevated BP 120/80. Hypertension Stage 1: BP 130-139/80-89. Hypertesnion Stage 2: BP 140 or higher/90 or higher. Hypertension Crisis: BP higher than 180/120 Outcomes/Goals: Able to verbalize/achieve optimal blood pressure <130/80, Incorporates diet changes & exercise for blood pressure control by DC, Other additional outcomes/goals - Tobacco Cessation Referral Smoking Cessation Referral:: No Individual Education/Counseling:: No Education Schedule Given:: Yes Medical- 30-Day Assessment Medical- 60-Day Assessment Medical- 90-Day Assessment Medical - Final Assessment Psychosocial - Initial Assess - VIsit Date of Eval: 01/11/21 - initial eval History of previous Mental disease:: Yes - Hx of depression. Pt is on medication. History of Emotional Disorders: Depression - Outcomes/Goals: See list Psychosocial Outcomes/Goals:: ID's personal stressors & 2 strategies to manage stress by discharge, Other Additional outcome/goals: - Intervention/Plan: See List Interventions/Plan:: Assess stressors,coping strategies & signs of derpression on admission, Instruct/assist pt to develop coping & personal stress Mgt strategies, Refer to Behavioral Health if appropriate, Refer to Physician if appropriate, Instruct patient to recognize signs & symptoms of depression, Instruct patient to recog, Other additional plan/intervention Psychosocial - 30-Day Assess Psychosocial - 60-Day Assess Psychosocial - 90-Day Assess Psychosocial - Final Assessmen Patient Health Questionnaire Initial Assessment 1. Little interest or pleasure in doing things: Several days 2. Feeling down, depressed, or hopeless: Not at all 3. Trouble falling or staying asleep, or sleeping too much: More than half the days 4. Feeling tired or having little energy: Several days 5. Poor appetite or overeating: Not at all 6. Feeling bad about yourself -- or that you are a failure or have let yourself or your family down: Not at all 7. Trouble concentrating on things, such as reading the newspaper or watching television: Not at all 8. Moving or speaking so slowly that other people could have noticed. Or the opposite - being so fidgety or restless that you have been moving around a lot more than usual: Not at all 9. Thoughts that you would be better off , or of hurting yourself in some way: Not at all How difficult have these problems made it for you to do your work, take care of things at home, or get along with other people?: Somewhat difficult Total Score: 4 JENNIFER-Q SV Test - Statements CAD is a disease of the arteries in the heart: False Examples of risk factors for heart disease: True Angina is chest pain or discomfort: True The benefits of resistance training include: True Eating more meat and dairy products: False Anti-platelet medications such as aspirin are important: True The only effective way to manage stress: False An exercise warm-up slowly increases heart rate: True Prepared, processed foods usually have high sodium: True Depression is common after a heart attack: True The statin medications lower cholesterol: True To control blood pressure, lower the amount of sodium: True If someone gets chest discomfort during walking: False Transfats are partially hydrogenated vegetable oils: I Don't Know Sleep apnea that is not treated increases the risk: False To control cholesterol, one should become a vegetarian: False Someone knows if he/she is exercising at the right level: False Diabetes cannot be prevented with exercise & health eating: False Stress is a large risk for heart attack: True A diet that can help lower blood pressure is rich in: True - Total Score Total Correct Responses: 18 Self-Efficacy Initial Assessment We would like to know how confident you are in doing certain activities. Please select your confidence level for:: Select your confidence level for the following using the scale 1-10 where 1 is not at all confident and 10 is totally confident. Your score is the average of all 6 responses. Fatigue: How confident are you that you can keep the fatigue caused by your disease from interfering with the things you want to do? Select Number: 8 Physical Discomfort or Pain: How confident are you that you can keep the physical discomfort or pain of your disease from interfering with the things you want to do? Select Number: 8 Emotional Distress: How confident are you that you can keep the emotional distress caused by your disease from interfering with the things you want to do? Select Number: 8 Other Symptoms or Health Problems: How confident are you that you can keep other symptoms or health problems from interfering with the things you want to do? Select Number: 7 Different Tasks and Activities: How confident are you that you can do the different tasks and activities needed to manage your health condition so as to reduce your need to see a doctor? Select Number: 9 Medication: How confident are you that you can do things other than just taking medication to reduce how much your illness affects your everyday life? Select Number: 8 Total Score:: 8 Nutrition Survey - Nutrition Survey Initial Have you lost >10 lbs over the past 2 months without trying?: No Are you following a special diet at home for diabetes, low fat, or low salt?: No Are you interested in meeting with a dietitian for help understanding your diet?: Yes Do you eat less than 3 meals a day?: No Do you eat fatty meats (easley, sausage, ribs, etc), fried foods, desserts, large amounts of salad dressings, margarine, butter, or cheese most days?: No Do you have food allergies? [Enter types in comment field]: No Do you eat in restaurants more than 3 times a week?: No Do you season food with salt, seasoning salt, or garlic salt?: Yes Do you used canned, boxed, frozen meals, or soups, seasoning packets?: Yes Total Score:: 3
[2021-01-11 14:08] VITALS: BP 100/48; PULSE 56; O2SAT 96; BMI 30.6
[2021-01-11 14:09] VITALS: BMI 30.6
== END ==
PROVIDERS: PCP Family Medicine; Referring Provider Internal Medicine Cardiovascular Disease; Visit Provider Internal Medicine Cardiovascular Disease
DX: I10 Essential (primary) hypertension (principal)

== ENCOUNTER 2021-01-25 10:30 | Outpatient (RCR) | payer MEDICARE, OTHER, SELFPAY ==
[2021-01-11 14:08] VITALS: BMI 30.6
[2021-01-11 14:09] VITALS: BMI 30.6
== END 2021-01-26 23:59 ==
LOC: CR 10:30
PROVIDERS: PCP Family Medicine; Referring Provider Internal Medicine Cardiovascular Disease; Visit Provider Internal Medicine Cardiovascular Disease
DX: I25.118 Atherosclerotic heart disease of native coronary artery with other forms of angina pectoris (principal); I10 Essential (primary) hypertension; I35.9 Nonrheumatic aortic valve disorder, unspecified; Q43.3 Congenital malformations of intestinal fixation; E78.5 Hyperlipidemia, unspecified; R06.00 Dyspnea, unspecified; Z95.5 Presence of coronary angioplasty implant and graft
CPT/HCPCS: 93798

== ENCOUNTER 2021-02-25 10:30 | Outpatient (RCR) | payer MEDICARE, OTHER, SELFPAY ==
[2021-01-11 14:08] VITALS: BMI 30.6
[2021-01-11 14:09] VITALS: BMI 30.6
--- NOTE | 2021-02-12 05:47 | PCM.CR.ITP ---
Diagnosis Exercise - 30-day Assessment - Visit Date of Eval: 02/12/21 Session #:: 11 - Missed one session due to stomach pain. - Physician Prescribed Exercise Modalities: Treadmill, Airdyne, NuStep Frequency: 3x/week for 12 weeks [36 sessions] Intensity: 60-80% of age predicted maximum heart rate reserve Current METSs:: 3.0 increase from 2.5 Target Heart Rate:: 81-108 Current RPE:: 13 Maximum Excercise HR:: 86 Resting Blood Pressure: 170/62 - BP remain elevated. Maximum Exercise Blood Pressure: 198/68 EKG Type: Sinus adam to sinus rhythm without ectopy. - Outcomes & Goals Goals:: Verbalizes understanding of THR, RPE & goal METS by session 6, Documents in home exercise log/reports 30 min aerobic 5 day/wk by DC, Demonstrates accurate pulse taking by DC - Intervention & Plan Exercise Program Goals: Instruct on personal THR & RPE, Instruct on MET level & personal MET goal, Show patient to take own pulse /validate performance until accurate - 30-day Reassessments 30 day Reassessments:: Progressing - Physical Activity Home Exercise Physical Activity - Home Exercise: Safe Exercise, Warm-up, Self-monitoring, Cool-Down, Home Exercise > 30 min Daily, Sitting Time <3 hours/daily - Outcomes & Goals Outcomes/Goals: Demonstrates correct Warm-up/exercise Cool-Down (S3) if = 2.5 METs, Verbalizes symptoms of exercise intolerance by Session 3 (S3), Demonstrate safe equipment use (S3) & follows exercise prescrition (6) - Intervention & Plan Plan/Intervention: Instruct warm-up & cool-down if exercising at > 2 METs, Instruct on symptoms of exercise intolerance & actions to take, Instruct & monitor on saf, Assess intial functional capacity & safety risk - 30-day Reassessments 30 day Reassessments:: Progressing Nutrition - Initial Assessment Nutrition - 30-Day Assessment - Program Goals Nutrition Program Goals: LDL <100 optimal. 100 - 129 Near optimal. 130 - 159 Borderline High. 160 - 189 High. Total Cholesterol <200 desirable. 200 - 239 Borderline High. >/= 240 High. HDL < 40 Low >/=60 High. Triglycerides <150 desirable. <199 optimal. VlDL 5 - 40. HgbA1C <7%. BMI <25 Patient has diagnosis of Hyperlipidemia (ICD E78)?: Yes - Visit Date of Assessment:: 02/12/21 Session #:: 11 - Cholesterol/Lipids Triglycerides (mg/dL): 170 LDL Cholesterol (mg/dL): 56 HDL Cholesterol (mg/dL): 49 Determine presence & major risk factors that modify LDL goal: Hypertension or hypertensive medication, Family history of premature CHD in Male < 55 years: female <65 yearsFa, Age men > 45 years; women >/= 55 years Outcomes/Goals: Pt IDs own risk factors & lifestyle modifications by Session 10, Verbalizes symptoms of angina & response by session 3., Pt independently manages Intervention/Plan: Instruct on personal lipid levels & lipid goals/NCEP guidelines, Instruct on cholesterol Referral to dietitian:: Yes - Medical Nutrition Therapy 30-day Reassessments:: Progressing - Diabetes (Other Core Measures) Diabetes Type: Not Applicable - Weight Mgt (Other Care) Not Applicable: No Height: 5 ft 3 in Weight:: 167 lb 8 oz BMI: 29.7 Diagnosis Overweight/Obesity BMI> 30% ICD-10 E66: No Diagnosis High BMI/Morbid Obesity BMI> 35% ICD-10 Z68: No Outcomes/Goals: Pt sets, maintains & shows weight loss goal & trend during rehab Intervention/Plan: Instruct on ideal BMI & set weight loss goal w/patient, Assist pt to ID & incorporate diet changes for weight loss by S9, Refer to Structured Weight Loss program as appropriate, Encourage goal of using 250-300dcal per session for weight loss 30 day Reassessments:: Progressing - Healthy Eating Habits Will attend diet classes:: Yes Outcomes/Goals:: Consume diet rich in vegs,fruits,whole grain/high fiber,fish,lean meat, Limit sat/trans fats,cholesterol & added salts & sugars Intervention/Plan:: Assess current eating habits 30-day Reassessments:: Progressing - Education Gave educational materials for:: Healthy eating Nutrition - 60-Day Assessment Nutrition - 90-Day Assessment Nutrition - Final Assessment Medical - Initial Assessment Medical- 30-Day Assessment - Visit Date of Eval: 02/12/21 Session #:: 11 - Medication Compliance Preventative Medication(s):: Aspirin, Ticagrelor/P2Y12 inhibitor, Statin/lipid, Beta tereso H/O mental health issues: depression, anxiety, or addiction?: No Doesn?t believe in the benefits of treatment?: No Believes medications are unnecessary or harmful?: No Has a concern about medication side effects?: No Expresses concern over the cost of medications?: No Outcomes/Goals: Verbalizes medications,desired effect & common side effects @ DC, Pt self-reports following medication regimen, Keeps card in wallet w/medications listed by DC Comments:: 01/16/2021 started on metoprolol 50mg, amlodipine 5mg and DC'd Carvedilol. Interventions/plans: Instruct on medication effects & side effects, Review medication list w/patient every two weeks, Instruct importance of taking meds as ordered & assist problem solving 30-day Reassessments:: Progressing - Tobacco Use Tobacco Use: Non-smoker - Hypertension Hypertension Diagnosis:: Hypertension ICD-10 I10 Resting Blood Pressure:: 170/62 - BPs remain elevated [place] [employer] Hypertension Guidelines: [place] [employer] Hypertension Guidelines. Normal BP Less than 120/80. Elevated BP 120/80. Hypertension Stage 1: BP 130-139/80-89. Hypertesnion Stage 2: BP 140 or higher/90 or higher. Hypertension Crisis: BP higher than 180/120 Peak Exercise Blood Pressure:: 198/68 Outcomes/Goals: Able to verbalize/achieve optimal blood pressure <130/80, Incorporates diet changes & exercise for blood pressure control by DC Interventions/plan: Instruct on optimal blood pressure, hypertension & medications, Instruct on effects of sodium, alcohol, stress, exercise &hypertension 30 day Reassessments:: Progressing - Tobacco Cessation Referral Smoking Cessation Referral:: No Individual Education/Counseling:: No Education Schedule Given:: Yes Medical- 60-Day Assessment Medical- 90-Day Assessment Medical - Final Assessment Psychosocial - Initial Assess Psychosocial - 30-Day Assess - VIsit Date of Eval: 02/12/21 Session #:: 11 Not Applicable: Yes History of previous Mental disease:: No - Psychosocial Test Tool Used:: PHQ-9 Questionnaire phq-9 Severity: Severity. 1-4 Minimal Depression. 5-9 Mild Depression. 10-14 Moderate Depression. 15-19 Moderately Sever Depression. 20-27 Severe Depression. Rule: - Referral to Behavioral Health PS - Interventions: Yes Attend Stress Management Classes, No Referral to Behavioral Health if PHQ-9 score >9:, No Referral to [facility], No Referral to Physician if PHQ-9 if score is 5-9: - Outcomes/Goals: See list Psychosocial Outcomes/Goals:: ID's personal stressors & 2 strategies to manage stress by discharge - Intervention/Plan: See List Interventions/Plan:: Assess stressors,coping strategies & signs of derpression on admission, Instruct/assist pt to develop coping & personal stress Mgt strategies, Instruct patient to recognize signs & symptoms of depression, Instruct patient to recog - 30-day Reassessments: 30 day Reassessments:: Progressing Psychosocial - 60-Day Assess Psychosocial - 90-Day Assess Psychosocial - Final Assessmen Patient Health Questionnaire 30-Day Re-eval Assessment 1. Little interest or pleasure in doing things: Several days 2. Feeling down, depressed, or hopeless: Not at all 3. Trouble falling or staying asleep, or sleeping too much: Several days 4. Feeling tired or having little energy: Not at all 5. Poor appetite or overeating: Not at all 6. Feeling bad about yourself -- or that you are a failure or have let yourself or your family down: Not at all 7. Trouble concentrating on things, such as reading the newspaper or watching television: Not at all 8. Moving or speaking so slowly that other people could have noticed. Or the opposite - being so fidgety or restless that you have been moving around a lot more than usual: Not at all 9. Thoughts that you would be better off , or of hurting yourself in some way: Not at all How difficult have these problems made it for you to do your work, take care of things at home, or get along with other people?: Not difficult at all Total Score: 2 Self-Efficacy 30-Day Re-eval Assessment We would like to know how confident you are in doing certain activities. Please select your confidence level for:: Select your confidence level for the following using the scale 1-10 where 1 is not at all confident and 10 is totally confident. Your score is the average of all 6 responses. Fatigue: How confident are you that you can keep the fatigue caused by your disease from interfering with the things you want to do? Select Number: 8 Physical Discomfort or Pain: How confident are you that you can keep the physical discomfort or pain of your disease from interfering with the things you want to do? Select Number: 8 Emotional Distress: How confident are you that you can keep the emotional distress caused by your disease from interfering with the things you want to do? Select Number: 9 Other Symptoms or Health Problems: How confident are you that you can keep other symptoms or health problems from interfering with the things you want to do? Select Number: 9 Different Tasks and Activities: How confident are you that you can do the different tasks and activities needed to manage your health condition so as to reduce your need to see a doctor? Select Number: 10 Medication: How confident are you that you can do things other than just taking medication to reduce how much your illness affects your everyday life? Select Number: 9 Total Score:: 8 Nutrition Survey
[2021-02-12 05:58] VITALS: BP 170/62; BP 198/68; BMI 29.7
== END 2021-02-26 23:59 ==
LOC: CR 10:30
PROVIDERS: PCP Family Medicine; Referring Provider Internal Medicine Cardiovascular Disease; Visit Provider Internal Medicine Cardiovascular Disease
DX: I25.118 Atherosclerotic heart disease of native coronary artery with other forms of angina pectoris (principal); I35.9 Nonrheumatic aortic valve disorder, unspecified; I10 Essential (primary) hypertension; Q43.3 Congenital malformations of intestinal fixation; E78.5 Hyperlipidemia, unspecified; R06.00 Dyspnea, unspecified; Z95.5 Presence of coronary angioplasty implant and graft
CPT/HCPCS: 93798

== ENCOUNTER 2021-03-27 10:30 | Outpatient (RCR) | payer MEDICARE, OTHER, SELFPAY ==
[2021-02-12 05:58] VITALS: BMI 29.7
[2021-02-27 00:41] VITALS: BP 170/62; BP 198/68; BMI 30.6
--- NOTE | 2021-03-13 06:48 | PCM.CR.ITP ---
Diagnosis Exercise - 60-day Assessment - Visit Date of Eval: 03/13/21 Session #:: 23 - Physician Prescribed Exercise Modalities: Treadmill, NuStep, SciFit Frequency: 3x/week for 12 weeks [36 sessions] Intensity: 60-80% of age predicted maximum heart rate reserve Current METSs:: 3.0 increase from 2.5 Target Heart Rate:: 81-108 Current RPE:: 12-13 Maximum Excercise HR:: 75 Resting Blood Pressure: 152/60 - Resting BPs remain elevated Maximum Exercise Blood Pressure: 158/64 EKG Type: Sinus adam to NSR with rare PAC. - Outcomes & Goals Goals:: Verbalizes understanding of THR, RPE & goal METS by session 6, Documents in home exercise log/reports 30 min aerobic 5 day/wk by DC, Demonstrates accurate pulse taking by DC - Intervention & Plan Exercise Program Goals: Instruct on personal THR & RPE, Instruct on MET level & personal MET goal, Show patient to take own pulse /validate performance until accurate, Instruct on home exercise - 30-day Reassessments 30 day Reassessments:: Progressing - Physical Activity Home Exercise Physical Activity - Home Exercise: Safe Exercise, Warm-up, Self-monitoring, Cool-Down, Home Exercise > 30 min Daily, Sitting Time <3 hours/daily - Outcomes & Goals Outcomes/Goals: Demonstrates correct Warm-up/exercise Cool-Down (S3) if = 2.5 METs, Verbalizes symptoms of exercise intolerance by Session 3 (S3), Demonstrate safe equipment use (S3) & follows exercise prescrition (6) - Intervention & Plan Plan/Intervention: Instruct warm-up & cool-down if exercising at > 2 METs, Instruct on symptoms of exercise intolerance & actions to take, Instruct & monitor on saf, Assess intial functional capacity & safety risk - 30-day Reassessments 30 day Reassessments:: Progressing Nutrition - Initial Assessment Nutrition - 30-Day Assessment Nutrition - 60-Day Assessment - Program Goals Nutrition Program Goals: LDL <100 optimal. 100 - 129 Near optimal. 130 - 159 Borderline High. 160 - 189 High. Total Cholesterol <200 desirable. 200 - 239 Borderline High. >/= 240 High. HDL < 40 Low >/=60 High. Triglycerides <150 desirable. <199 optimal. VlDL 5 - 40. HgbA1C <7%. BMI <25 Patient has diagnosis of Hyperlipidemia (ICD E78)?: Yes - Visit Date of Assessment:: 03/13/21 Session #:: 23 - Cholesterol/Lipids Triglycerides (mg/dL): 170 Total Cholesterol (mg/dL): 139 LDL Cholesterol (mg/dL): 56 HDL Cholesterol (mg/dL): 49 Determine presence & major risk factors that modify LDL goal: Hypertension or hypertensive medication, Age men > 45 years; women >/= 55 years Outcomes/Goals: Pt IDs own risk factors & lifestyle modifications by Session 10, Verbalizes symptoms of angina & response by session 3., Pt independently manages Intervention/Plan: Instruct on personal lipid levels & lipid goals/NCEP guidelines, Instruct on cholesterol Referral to dietitian:: Yes - Medical Nutrition Therapy 30-day Reassessments:: Progressing - Diabetes (Other Core Measures) Diabetes Type: Not Applicable - Weight Mgt (Other Care) Not Applicable: Yes Height: 5 ft 3 in Weight:: 165 lb 8 oz BMI: 29.2 Diagnosis Overweight/Obesity BMI> 30% ICD-10 E66: No Diagnosis High BMI/Morbid Obesity BMI> 35% ICD-10 Z68: No Outcomes/Goals: Pt sets, maintains & shows weight loss goal & trend during rehab Intervention/Plan: Instruct on ideal BMI & set weight loss goal w/patient, Assist pt to ID & incorporate diet changes for weight loss by S9, Encourage goal of using 250-300dcal per session for weight loss 30 day Reassessments:: Progressing - Healthy Eating Habits Will attend diet classes:: Yes Outcomes/Goals:: Consume diet rich in vegs,fruits,whole grain/high fiber,fish,lean meat, Limit sat/trans fats,cholesterol & added salts & sugars Intervention/Plan:: Assess current eating habits 30-day Reassessments:: Progressing - Education Gave educational materials for:: Healthy eating Nutrition - 90-Day Assessment Nutrition - Final Assessment Medical - Initial Assessment Medical- 30-Day Assessment Medical- 60-Day Assessment - Visit Date of Eval: 03/13/21 Session #:: 23 - Medication Compliance Preventative Medication(s):: Aspirin, Ticagrelor/P2Y12 inhibitor, Statin/lipid, Beta tereso H/O mental health issues: depression, anxiety, or addiction?: Yes Doesn?t believe in the benefits of treatment?: No Believes medications are unnecessary or harmful?: No Has a concern about medication side effects?: No Expresses concern over the cost of medications?: No Outcomes/Goals: Verbalizes medications,desired effect & common side effects @ DC, Pt self-reports following medication regimen, Keeps card in wallet w/medications listed by DC Interventions/plans: Instruct on medication effects & side effects, Review medication list w/patient every two weeks, Instruct importance of taking meds as ordered & assist problem solving 30-day Reassessments:: Progressing - Tobacco Use Tobacco Use: Non-smoker - Hypertension Hypertension Diagnosis:: Hypertension ICD-10 I10 Resting Blood Pressure:: 190/70 - Stage II: Resting BPs remain elevated [employer] Hypertension Guidelines: [place] [employer] Hypertension Guidelines. Normal BP Less than 120/80. Elevated BP 120/80. Hypertension Stage 1: BP 130-139/80-89. Hypertesnion Stage 2: BP 140 or higher/90 or higher. Hypertension Crisis: BP higher than 180/120 Peak Exercise Blood Pressure:: 180/70 Outcomes/Goals: Able to verbalize/achieve optimal blood pressure <130/80, Incorporates diet changes & exercise for blood pressure control by DC Interventions/plan: Instruct on optimal blood pressure, hypertension & medications, Instruct on effects of sodium, alcohol, stress, exercise &hypertension 30 day Reassessments:: Progressing - Tobacco Cessation Referral Smoking Cessation Referral:: No Individual Education/Counseling:: No Education Schedule Given:: Yes Medical- 90-Day Assessment Medical - Final Assessment Psychosocial - Initial Assess Psychosocial - 30-Day Assess Psychosocial - 60-Day Assess - VIsit Date of Eval: 03/13/21 Session #:: 23 Not Applicable: No History of previous Mental disease:: Yes History of Emotional Disorders: Depression - Psychosocial Test Tool Used:: PHQ-9 Questionnaire phq-9 Severity: Severity. 1-4 Minimal Depression. 5-9 Mild Depression. 10-14 Moderate Depression. 15-19 Moderately Sever Depression. 20-27 Severe Depression. Rule: - Referral to Behavioral Health PS - Interventions: Yes Referral to Physician if PHQ-9 if score is 5-9:, Yes Attend Stress Management Classes, No Referral to Behavioral Health if PHQ-9 score >9:, No Referral to [facility] - Outcomes/Goals: See list Psychosocial Outcomes/Goals:: ID's personal stressors & 2 strategies to manage stress by discharge - Intervention/Plan: See List Interventions/Plan:: Assess stressors,coping strategies & signs of derpression on admission, Instruct/assist pt to develop coping & personal stress Mgt strategies, Instruct patient to recognize signs & symptoms of depression, Instruct patient to recog - 30-day Reassessments: 30 day Reassessments:: Progressing Psychosocial - 90-Day Assess Psychosocial - Final Assessmen Patient Health Questionnaire 60-Day Re-eval Assessment 1. Little interest or pleasure in doing things: Several days 2. Feeling down, depressed, or hopeless: Not at all 3. Trouble falling or staying asleep, or sleeping too much: More than half the days 4. Feeling tired or having little energy: Several days 5. Poor appetite or overeating: Not at all 6. Feeling bad about yourself -- or that you are a failure or have let yourself or your family down: Not at all 7. Trouble concentrating on things, such as reading the newspaper or watching television: Not at all 8. Moving or speaking so slowly that other people could have noticed. Or the opposite - being so fidgety or restless that you have been moving around a lot more than usual: Not at all 9. Thoughts that you would be better off , or of hurting yourself in some way: Not at all How difficult have these problems made it for you to do your work, take care of things at home, or get along with other people?: Somewhat difficult Total Score: 4 Self-Efficacy 60-Day Re-eval Assessment We would like to know how confident you are in doing certain activities. Please select your confidence level for:: Select your confidence level for the following using the scale 1-10 where 1 is not at all confident and 10 is totally confident. Your score is the average of all 6 responses. Fatigue: How confident are you that you can keep the fatigue caused by your disease from interfering with the things you want to do? Select Number: 8 Physical Discomfort or Pain: How confident are you that you can keep the physical discomfort or pain of your disease from interfering with the things you want to do? Select Number: 8 Emotional Distress: How confident are you that you can keep the emotional distress caused by your disease from interfering with the things you want to do? Select Number: 8 Other Symptoms or Health Problems: How confident are you that you can keep other symptoms or health problems from interfering with the things you want to do? Select Number: 8 Different Tasks and Activities: How confident are you that you can do the different tasks and activities needed to manage your health condition so as to reduce your need to see a doctor? Select Number: 8 Medication: How confident are you that you can do things other than just taking medication to reduce how much your illness affects your everyday life? Select Number: 8 Total Score:: 8 Nutrition Survey
[2021-03-13 06:57] VITALS: BP 152/60; BP 180/70; BP 190/70; BMI 29.2
== END 2021-03-28 23:59 ==
LOC: CR 10:30
PROVIDERS: PCP Family Medicine; Referring Provider Internal Medicine Cardiovascular Disease; Visit Provider Internal Medicine Cardiovascular Disease
DX: I25.118 Atherosclerotic heart disease of native coronary artery with other forms of angina pectoris (principal); I35.9 Nonrheumatic aortic valve disorder, unspecified; I10 Essential (primary) hypertension; Q43.3 Congenital malformations of intestinal fixation; E78.5 Hyperlipidemia, unspecified; R06.00 Dyspnea, unspecified; Z95.5 Presence of coronary angioplasty implant and graft
CPT/HCPCS: 93798

== ENCOUNTER → 2021-04-12 15:17 | Outpatient (CLI) | payer MEDICARE, OTHER, SELFPAY ==
[2021-04-10 08:54] VITALS: BMI 29.0
[2021-04-12 17:19] LABS: Absolute Neutrophil Count 4.7 X10^3/uL (2.0-7.7); Basophil# 0.06 X10^3/uL; Basophil% 0.8 % (0-1); Eosinophil# 0.08 X10^3/uL; Eosinophils% 1.1 % (0-5); Hematocrit 36.7 % (37-47); Hemoglobin 12.4 g/dL (12.0-15.0); Mean Corp Hgb Conc 33.8 g/dL (32-36); Mean Corpuscular Volume 94.6 fL (81-99); Mean Platelet Vol. 9.8 fl (6.2-12.0); Monocyte# 0.51 X10^3/uL; Monocyte% 7.2 % (0-10); NRBC Flagged by Analyzer 0 % (0-5); Neutrophil % 66.5 % (47-70); Platelet Count 371 K/mm3 (150-450); RBC Distribution Width CV 12.9 % (11.6-14.6); Red Blood Count 3.88 M/mm3 (4.2-5.4); White Blood Count 7.1 K/mm3 (4.4-11.0)
[2021-04-12 17:58] LABS: ALB/GLOB Ratio 1.1 RATIO (0.9-2.4); AST(SGOT) 16 U/L (15-37); Alanine Aminotransfer ALT/SGPT 27 U/L (13-56); Albumin, Serum 3.8 g/dL (3.2-5.0); Alkaline Phosphatase 37 U/L (45-117); Anion Gap 10 (5-15); BUN 22 mg/dL (7-18); BUN/Creat Ratio 24.6 RATIO (10-20); Calcium,Total 10.1 mg/dL (8.5-10.1); Chloride 106 mmol/L (98-107); Creatinine, Serum 0.89 mg/dL (0.55-1.02); EST Glomerular Filtration Rate 64 mL/min (>60); Est Glom Filt Rate - Afr Amer 77 mL/min (>60); Globulin 3.5 g/dL (2.2-4.2); Glucose 91 mg/dL (74-106); Potassium 3.4 mmol/L (3.5-5.1); Protein, Total 7.3 g/dL (6.4-8.2); Sodium Level 139 mmol/L (136-145); T4 Free Direct 1.26 ng/dL (0.76-1.46); Thyroid Stim Hormone (TSH) 1.71 uIU/mL (0.358-3.74)
== END ==
PROVIDERS: PCP Family Medicine; Referring Provider Family Medicine; Visit Provider Family Medicine
DX: I10 Essential (primary) hypertension (principal); R23.2 Flushing
CPT/HCPCS: 36415; 80053; 84439; 84443; 85025

== ENCOUNTER 2021-04-13 12:25 | Inpatient (IN) | payer MEDICARE, OTHER, SELFPAY ==
[2021-04-10 08:54] VITALS: BMI 29.0
[2021-04-13] VITALS (18 sets, daily range): BP systolic 130–194; BP diastolic 59–79; PULSE 57–74; RESP 12–25; TEMP 36.4–36.6; O2SAT 94–99; BMI 28.7; BMI 28.2
--- NOTE | 2021-04-13 13:17 | EKG12_ITS ---
Test Reason : HTN Blood Pressure : / mmHG Vent. Rate : 054 BPM Atrial Rate : 054 BPM P-R Int : 190 ms QRS Dur : 070 ms QT Int : 452 ms P-R-T Axes : 030 -39 012 degrees QTc Int : 428 ms Sinus bradycardia Left axis deviation Abnormal ECG Confirmed by AUBRIE HERNANDEZ, BECKY ([id number]), dictionary editor HERMINIO SERNA ([id number]) on 04/16/2021 8:51:29 AM Referred By: WILBER Confirmed By:BECKY ALFRED MD
--- NOTE | 2021-04-13 13:17 | RAD_ITS ---
STUDY: X-RAY CHEST REASON FOR EXAM: Female, 85 years old. chest pain TECHNIQUE: Frontal portable view of the chest COMPARISON: 07 December 2020 FINDINGS: The lungs are clear and expanded. There is no demonstrated pleural abnormality. Normal size heart. Normal mediastinum and arnulfo. Normal visualized pulmonary arteries. Normal visualized aortic arch and descending thoracic aorta. Normal visualized thoracic spine. Normal visualized ribs, clavicles, and shoulders. There is no demonstrated abnormality of the visualized soft tissue structures of the upper abdomen. RAD/Chest 1 View (Portable) IMPRESSION: Normal x-ray examination of the chest. Electronically Signed: Go Olivo MD at 14:23 EDT Tel , Service support ,
[2021-04-13 13:25] LABS: Absolute Lymphocyte Count 1.53 X10^3/uL (0.83-4.51); Absolute Neutrophil Count 4.9 X10^3/uL (2.0-7.7); Basophil# 0.04 X10^3/uL; Basophil% 0.6 % (0-1); Eosinophil# 0.03 X10^3/uL; Eosinophils% 0.4 % (0-5); Hematocrit 37.3 % (37-47); Hemoglobin 12.9 g/dL (12.0-15.0); Lymphocyte # 1.53 X10^3/ul (0.83-4.51); Lymphocyte % 21.5 % (19-41); Mean Corp Hgb Conc 34.6 g/dL (32-36); Mean Corpuscular Hgb 31.9 pg (27.0-32.0); Mean Corpuscular Volume 92.3 fL (81-99); Mean Platelet Vol. 9.3 fl (6.2-12.0); Monocyte# 0.54 X10^3/uL; Monocyte% 7.6 % (0-10); NRBC Flagged by Analyzer 0 % (0-5); Neutrophil # 4.94 X10^3/uL (2.7-7.7); Neutrophil % 69.3 % (47-70); Platelet Count 348 K/mm3 (150-450); RBC Distribution Width CV 12.8 % (11.6-14.6); RBC Distribution Width SD 43.2 fl (35.1-43.9); Red Blood Count 4.04 M/mm3 (4.2-5.4); White Blood Count 7.1 K/mm3 (4.4-11.0)
--- NOTE | 2021-04-13 13:38 | EX.ED.DYSGE1 ---
HPI History of Present Illness Chief Complaint: Shortness of Breath Narrative Narrative: Patient presents with her daughter because of multiple somatic complaints. They state that while she is at cardiac rehab this past week her blood pressure has been elevated and has shot up. It was in the 150s. She denies any chest pain she has felt short of breath. There are times during the week when the patient felt flushed. She denies any headache. No paresthesias. They split her metoprolol dosing from 100 mg to 50 mg in the morning and 50 in the evening. She has had cardiac rehab since October when she had 3 stents placed. [facility] Medical History Aortic valve calcification Atherosclerotic heart disease of [place] coronary artery with other forms of angina pectoris Benign essential hypertension Chilaiditi's syndrome Degenerative disc disease, cervical Depression Essential tremor GERD (gastroesophageal reflux disease) History of pulmonary embolus (PE) (2010) Hyperlipidemia Iliotibial band syndrome, left leg Lymphedema Segmental and somatic dysfunction of cervical region Segmental and somatic dysfunction of thoracic region Spinal stenosis at L4-L5 level Home Medications aspirin 81 mg tablet,delayed release 81 mg PO DAILY 12/06/20 [History Last Taken 12/26/20] coenzyme Q10 100 mg tablet 100 mg PO DAILY 12/06/20 [History Last Taken Unknown] fenofibrate nanocrystallized 145 mg tablet 145 mg PO DAILY tab 12/06/20 [History Last Taken Unknown] paroxetine HCl 10 mg tablet 15 mg PO DAILY tab 12/06/20 [History Last Taken Unknown] potassium chloride 10 mEq capsule,extended release 10 meq PO DAILY cap 12/06/20 [History Last Taken 12/11/20] vitamin B complex 1 tab PO DAILY 12/06/20 [History Last Taken Unknown] Brilinta 90 mg PO BID #180 tab 12/12/20 [Rx Last Taken Unknown] atorvastatin 20 mg tablet 20 mg PO QHS #90 tab 12/13/20 [Rx Last Taken Unknown] amlodipine 5 mg PO DAILY 04/13/21 [History Last Taken Unknown] ascorbic acid (vitamin C) [Vitamin C] 500 mg PO DAILY 04/13/21 [History Last Taken Unknown] cholecalciferol (vitamin D3) [Vitamin D3] 25 mcg PO DAILY 04/13/21 [History Last Taken Unknown] hydrochlorothiazide 25 mg PO DAILY 04/13/21 [History Last Taken Unknown] losartan 100 mg PO QHS 04/13/21 [History Last Taken Unknown] metoprolol succinate 50 mg PO BID 04/13/21 [History Last Taken Unknown] Allergy/AdvReac Type Severity Reaction Status Date / Time naproxen [From Aleve] AdvReac Itching Verified 04/13/21 12:29 Family History Grandfather Ward's disease Father CAD (coronary artery disease) Sister CAD (coronary artery disease) Hypertension Gout Mother Hypertension CHF (congestive heart failure) Grandfather Cancer Prostate Grandmother CVA (cerebral vascular accident) Daughter Factor V Leiden Surgical History History of arthroscopy of left knee History of bilateral cataract extraction History of coronary artery stent placement (12/26/20) History of hemorrhoidectomy History of hysterectomy History of repair of rectocele History of tonsillectomy Social History Smoking Status: Never smoker alcohol intake: current details: Occasionally substance use type: does not use ROS ROS ED ROS Narrative Constitutional: No fever, no chills. HEENT: No sore throat. No neck pain. No loss of vision. No rhinorrhea. Cardiovascular: No chest pain. No palpitations. No pedal edema. Respiratory: No cough, positive shortness of breath. Abdominal: No abdominal pain. No nausea. No vomiting. Genitourinary: No dysuria. No hematuria. Musculoskeletal: No myalgias. No arthralgias. Neurologic: No headaches. No dizziness. Mild lightheadedness. Skin: No rash. Positive flushing/change in color. Psychiatric: No depression. No anxiety. EXAM Physical Exam Narrative Exam Narrative: Afebrile. Vital signs noted. HEENT: Normocephalic. Atraumatic. PERRL, EOMI. Neck soft and supple. No point tenderness or step off. Cardiovascular: Regular rate and rhythm. No murmurs, rubs, or gallops appreciated. Respiratory: No tachypnea. Lungs clear to auscultation bilaterally. Gastrointestinal: Abdomen soft, nontender, with normoactive bowel sounds. No rebound or guarding. Neurological: Awake. Alert. Nonfocal, nonlateralizing. Skin: No rash. Normal color. No pallor. Musculoskeletal: No pedal edema. Full range of motion extremities. Const Vital Signs: 04/13/21 12:27 04/13/21 13:03 04/13/21 13:05 Temperature 97.6 F L 97.6 F L Temperature Source Temporal Temporal Pulse Rate 62 57 L Respiratory Rate 18 16 Respiratory Effort Short of Breath Labored Respiratory Depth Normal Blood Pressure 194/76 H 194/76 H Blood Pressure Mean 115 115 Pulse Ox 95 97 Oxygen Delivery Method Room Air Room Air Room Air 04/13/21 13:19 04/13/21 13:54 04/13/21 15:18 Temperature 97.8 F Temperature Source Temporal Pulse Rate 59 L 57 L Respiratory Rate 14 15 Respiratory Effort Respiratory Depth Blood Pressure 177/68 H 187/63 H Blood Pressure Mean 104 104 Pulse Ox 97 97 97 Oxygen Delivery Method Room Air Room Air Room Air MDM MDM MDM Narrative Medical decision making narrative: Patient's blood pressure was elevated at 191 systolic here in the emergency department. She was administered 10 mg of hydralazine. Comprehensive work-up was pursued. She has normal white count of 7.1. Hemoglobin stable at 12.6. High-sensitivity troponin normal at 8. BNP shows normal value of 72. Chest x-ray shows no acute process, no infiltrate. When she went to stand and give a urine sample, states she felt lightheaded. Initially, I discussed with Dr. Garcia her being observed on telemetry. He would like orthostatics checked prior to possible admission. He did feel that she could get additional hydralazine, but her heart rate is too low for beta-blockade. I do feel she would benefit from observation for medication adjustment and labile hypertension. He would like the orthostatics checked and reevaluation. At this point in time, she will be signed out to Dr. Arnold to recheck her blood pressure, and most likely have the patient observed. She is in stable condition. Lab Data Labs: Laboratory Results - last 24 hr 04/13/21 04/13/21 04/13/21 13:10 13:10 13:10 WBC 7.1 RBC 4.04 L Hgb 12.9 Hct 37.3 MCV 92.3 MCH 31.9 MCHC 34.6 RDW Std Deviation 43.2 RDW Coeff of Shae 12.8 Plt Count 348 MPV 9.3 Immature Gran % (Auto) 0.600 Neut % (Auto) 69.3 Lymph % (Auto) 21.5 [place] % (Auto) 7.6 Eos % (Auto) 0.4 Baso % (Auto) 0.6 Absolute Neuts (auto) 4.9 Absolute Lymphs (auto) 1.53 Nucleated RBC % 0 Sodium 138 Potassium 3.5 Chloride 108 H Carbon Dioxide 22.0 Anion Gap 8 BUN 23 H Creatinine 0.78 Estim Creat Clear Calc 34.02 Est GFR (MDRD) Af Amer 90 Est GFR (MDRD) Non-Af 75 BUN/Creatinine Ratio 29.6 H Glucose 82 Calcium 9.9 Troponin I High Sens 8 B-Natriuretic Peptide 72.2 Radiography Diagnostic Testing: Clinical Impression(s) from Imaging Studies Chest X-Ray 04/13/21 13:17 IMPRESSION: Normal x-ray examination of the chest. Electronically Signed: Go Olivo MD at 14:23 EDT Tel , Service support , Discharge Plan Triage Chief Complaint: Shortness of Breath ED Provider: Reilly Yadav Dx/Rx/DC Orders Prescriptions: No Action fenofibrate nanocrystallized 145 mg tablet 145 mg PO DAILY RF: 0 potassium chloride 10 mEq capsule, extended release 10 meq PO DAILY RF: 0 paroxetine HCl 10 mg tablet 15 mg PO DAILY RF: 0 coenzyme Q10 100 mg tablet 100 mg PO DAILY RF: 0 vitamin B complex Tablet 1 tab PO DAILY RF: 0 aspirin [Adult Low Dose Aspirin] 81 mg tablet,delayed release (DR/EC) 81 mg PO DAILY RF: 0 Brilinta 90 mg Tablet 90 mg PO BID Qty: 180 RF: 2 metoprolol succinate 100 mg tablet extended release 24 hr 50 mg PO BID RF: 0 amlodipine 10 mg tablet 5 mg PO DAILY RF: 0 hydrochlorothiazide 25 mg tablet 25 mg PO DAILY RF: 0 losartan 100 mg tablet 100 mg PO QHS RF: 0 ascorbic acid (vitamin C) [Vitamin C] 500 mg Tablet 500 mg PO DAILY RF: 0 cholecalciferol (vitamin D3) [Vitamin D3] 25 mcg (1,000 unit) Capsule 25 mcg PO DAILY RF: 0 atorvastatin [Lipitor] 20 mg tablet 20 mg PO QHS Qty: 90 RF: 2 Primary Care Provider: Patrick Cowart
[2021-04-13] MEDS: hydrALAZINE 20 MG/ML Vial 10 MG IV ×2 (13:50→16:41)
[2021-04-13 13:54] LABS: Anion Gap 8 (5-15); BUN 23 mg/dL (7-18); BUN/Creat Ratio 29.6 RATIO (10-20); Calcium,Total 9.9 mg/dL (8.5-10.1); Chloride 108 mmol/L (98-107); Creatinine, Serum 0.78 mg/dL (0.55-1.02); EST Glomerular Filtration Rate 75 mL/min (>60); Est Glom Filt Rate - Afr Amer 90 mL/min (>60); Estimated Creatinine Clearance 34.02 ml/min; Glucose 82 mg/dL (74-106); Potassium 3.5 mmol/L (3.5-5.1); Sodium Level 138 mmol/L (136-145); Troponin-I HS 8 pg/mL (3.0-54.0)
[2021-04-13 14:09] LABS: BNP,B-Type NATRIURETIC PEPTIDE 72.2 pg/mL (0-100)
--- NOTE | 2021-04-13 15:46 | PCM.HP.STD ---
HPI - General HPI Narrative VENU RAMIREZ, is a 85 F with history of coronary artery disease status post PCI 3 stents in November [address] Cortés came to ER for shortness of breath and high blood pressure. As per patient, she has been getting short of breath mainly on exertion sometimes at night around 3-4 o'clock. Respiratory pattern is 3 to 4 breaths of labored breathing. She has been getting short of breath during cardiac rehab too, last 1 on Thursday was canceled due to high blood pressure. Her blood pressure has been 150s to 180s last week. Patient fluid retention and leg edema is well controlled. Denies chest pain. In ED, her systolic blood pressure is 180s to 197 mmHg. She did not respond much with 10 mg of IV hydralazine. Second dose of 10 mg ordered. Chest x-ray reported lungs clear. BNP normal. Twelve-lead EKG shows sinus bradycardia at 54/min,, LAD, QTC 428 ms. No significant change from the previous EKG on December 27, 2020. She took her morning pills of HCTZ, amlodipine 5 mg. She takes losartan 100 mg in the evening. Metoprolol succinate was changed to 50 mg twice daily from 100 mg daily. [facility] Medical History Aortic valve calcification Atherosclerotic heart disease of [place] coronary artery with other forms of angina pectoris Benign essential hypertension Chilaiditi's syndrome Degenerative disc disease, cervical Depression Essential tremor GERD (gastroesophageal reflux disease) History of pulmonary embolus (PE) (2010) Hyperlipidemia Iliotibial band syndrome, left leg Lymphedema Segmental and somatic dysfunction of cervical region Segmental and somatic dysfunction of thoracic region Spinal stenosis at L4-L5 level Home Medications aspirin 81 mg tablet,delayed release 81 mg PO DAILY 12/06/20 [History Last Taken 12/26/20] coenzyme Q10 100 mg tablet 100 mg PO DAILY 12/06/20 [History Last Taken Unknown] fenofibrate nanocrystallized 145 mg tablet 145 mg PO DAILY tab 12/06/20 [History Last Taken Unknown] paroxetine HCl 10 mg tablet 15 mg PO DAILY tab 12/06/20 [History Last Taken Unknown] potassium chloride 10 mEq capsule,extended release 10 meq PO DAILY cap 12/06/20 [History Last Taken 12/11/20] vitamin B complex 1 tab PO DAILY 12/06/20 [History Last Taken Unknown] Brilinta 90 mg PO BID #180 tab 12/12/20 [Rx Last Taken Unknown] atorvastatin 20 mg tablet 20 mg PO QHS #90 tab 12/13/20 [Rx Last Taken Unknown] amlodipine 5 mg PO DAILY 04/13/21 [History Last Taken Unknown] ascorbic acid (vitamin C) [Vitamin C] 500 mg PO DAILY 04/13/21 [History Last Taken Unknown] cholecalciferol (vitamin D3) [Vitamin D3] 25 mcg PO DAILY 04/13/21 [History Last Taken Unknown] hydrochlorothiazide 25 mg PO DAILY 04/13/21 [History Last Taken Unknown] losartan 100 mg PO QHS 04/13/21 [History Last Taken Unknown] metoprolol succinate 50 mg PO BID 04/13/21 [History Last Taken Unknown] Allergy/AdvReac Type Severity Reaction Status Date / Time naproxen [From Aleve] AdvReac Itching Verified 04/13/21 12:29 Family History Grandfather Ward's disease Father CAD (coronary artery disease) Sister CAD (coronary artery disease) Hypertension Gout Mother Hypertension CHF (congestive heart failure) Grandfather Cancer Prostate Grandmother CVA (cerebral vascular accident) Daughter Factor V Leiden Surgical History History of arthroscopy of left knee History of bilateral cataract extraction History of coronary artery stent placement (12/26/20) History of hemorrhoidectomy History of hysterectomy History of repair of rectocele History of tonsillectomy Social History Smoking Status: Never smoker alcohol intake: current details: Occasionally substance use type: does not use ROS ROS Narrative Constitutional: Reports fatigue and weakness HEENT: Reports systems reviewed and no addt'l complaints, except as documented Respiratory/Chest: As mentioned in HPI Gastrointestinal: Denies coffee ground emesis, hematemesis or vomiting Genitourinary: Denies burning urination or new urinary tract symptoms Musculoskeletal: Reports joint pain and limited range of motion Neurologic: Denies seizure-like activity skin: No ulcer. No rash Endocrinology: Reports systems reviewed and no addt'l complaints, except as documented Hematologic/Lymphatic: Reports systems reviewed and no addt'l complaints, except as documented Rest 12 ROS are negative except as mentioned in HPI Vital Signs Vital Signs Vital Signs: 04/13/21 12:27 04/13/21 13:03 04/13/21 13:05 Temperature 97.6 F L 97.6 F L Temperature Source Temporal Temporal Pulse Rate 62 57 L Respiratory Rate 18 16 Respiratory Effort Short of Breath Labored Respiratory Depth Normal Blood Pressure 194/76 H 194/76 H Blood Pressure Mean 115 115 Pulse Ox 95 97 Oxygen Delivery Method Room Air Room Air Room Air 04/13/21 13:19 04/13/21 13:54 04/13/21 15:18 Temperature 97.8 F Temperature Source Temporal Pulse Rate 59 L 57 L Respiratory Rate 14 15 Respiratory Effort Respiratory Depth Blood Pressure 177/68 H 187/63 H Blood Pressure Mean 104 104 Pulse Ox 97 97 97 Oxygen Delivery Method Room Air Room Air Room Air Weight Weight: 162 lb Body Mass Index (BMI) 28.7 Physical Exam Narrative General: Alert, Oriented x3, Cooperative HEENT: Atraumatic, PERRLA, EOMI, Normocephalic Oral: No Gingival or Mucosal Lesions/ Ulcerations Neck: Supple, No JVD, Negative Carotid Bruits Lungs: Air entry equal in bilateral lung bases. No crepitation/rhonchi. No tachypnea or hypoxia Cardiovascular: Sinus bradycardia, Normal S1, Normal S2, systolic murmur over right second ICS Abdomen: Bowel Sounds Present, Soft, Non Tender, Non-Distended : No renal angle tenderness. No suprapubic tenderness. Extremities: Mild bilateral ankle edema, Capillary Refill Less than 3 Seconds Skin: No rashes, No breakdown Musculoskeletal: No Tenderness to Palpation of Joints or Extremities Neurological: Cranial nerves II-XII grossly intact, DTR 2+/4 and Symmetrical, Neuro grossly intact Psych/Mental Status: Mild anxiety. Results Lab / Micro Data Result Diagrams: 04/13/21 13:10 04/13/21 13:10 Labs: Laboratory Results - last 24 hr 04/13/21 13:10: WBC 7.1, RBC 4.04 L, Hgb 12.9, Hct 37.3, MCV 92.3, MCH 31.9, MCHC 34.6, RDW Std Deviation 43.2, RDW Coeff of Shae 12.8, Plt Count 348, MPV 9.3, Immature Gran % (Auto) 0.600, Neut % (Auto) 69.3, Lymph % (Auto) 21.5, [place] % (Auto) 7.6, Eos % (Auto) 0.4, Baso % (Auto) 0.6, Absolute Neuts (auto) 4.9, Absolute Lymphs (auto) 1.53, Nucleated RBC % 0 04/13/21 13:10: Sodium 138, Potassium 3.5, Chloride 108 H, Carbon Dioxide 22.0, Anion Gap 8, BUN 23 H, Creatinine 0.78, Estim Creat Clear Calc 34.02, Est GFR (MDRD) Af Amer 90, Est GFR (MDRD) Non-Af 75, BUN/Creatinine Ratio 29.6 H, Glucose 82, Calcium 9.9, Troponin I High Sens 8 04/13/21 13:10: B-Natriuretic Peptide 72.2 Micro: Microbiology 04/13/21 13:05 Nasal Secretion SARS-CoV-2 Antigen (Rapid) - Final Radiology Impression Chest X-Ray 04/13/21 13:17 IMPRESSION: Normal x-ray examination of the chest. Electronically Signed: Go Olivo MD at 14:23 EDT Tel , Service support , Assessment & Plan Assessment/Plan (1) Hypertensive emergency: PLAN: 1. Hypertensive emergency with dyspnea: Patient is being admitted in ICU as she is being started on nicardipine drip. Titrate nicardipine drip to achieve goal SBP 150, goal DSP 100. Continue her home medications losartan, HCTZ and metoprolol. Hold amlodipine as she is on nicardipine drip. Cycle cardiac. Discussed with relief pharmacist Dr. Viera. 2. Dyspnea most likely due to Brilinta: Brilinta discontinued and changed to Plavix. Discussed with the relief pharmacist. She does not have features of CHF exacerbation including leg edema, pulmonary edema and BNP is normal. 3. Coronary artery disease status post PCI: Home medications reconciliation done. Does not have any active chest pain or tightness. First troponin negative. 4. Aortic valve calcification: Last echo in October 2020 reported EF 70% with mild concentric LVH. Normal left atrium. Moderate focal aortic valve calcification. VTE prophylaxis: Patient has history of PE in the past and treated. High risk. Lovenox 40 mg subcu daily and bilateral SCDs Living will/advanced directive/end of life care: Patient does have living will or advanced directive. Her is power of retrofit installer for health. After discussion of benefits/risks procedures involved with full code, DNR CC arrest and DNR CC, the patient opted for full code. Patient does want artificial life support including intubation, tube feed, ventilator and/chest compression, central venous catheter, vasopressor and DC shock if needed Total time spent in [id number] encounter in discussion of advanced directive 16 minutes. Charges/Coding Visit Charges Inpatient E&M: 45474 Init Hosp L3 Procedures Hospitalists Procedures: 32334 Advncd Care Plan 30 Min
--- NOTE | 2021-04-13 16:19 | ED.RN ---
pt orthostatic vs. lying 184/64 heart rate 58, sit 185/75 heart rate 63, and standing 177/79 heart rate 69.
[2021-04-13 16:44] LABS: Magnesium 1.9 mg/dL (1.6-2.6)
--- NOTE | 2021-04-13 17:39 | ED.RN ---
one hour after having hydralazine pt repeat bp 176/64. dr. dawson notified.
--- NOTE | 2021-04-13 18:03 | ED.RN ---
pt. calls out states she feels flush, and shaky. jorge suggs into check bs-139, bp-186/[address] Catalina polanco.
[2021-04-13 18:06] LABS: Bedside Glucose 139 mg/dL (70-110)
[2021-04-13] MEDS: 0.9% Normal Saline 1,000 ML 50 ML IV (19:00)
--- NOTE | 2021-04-13 19:13 | EKG12_ITS ---
Test Reason : REPEAT HTN Blood Pressure : / mmHG Vent. Rate : 068 BPM Atrial Rate : 068 BPM P-R Int : 174 ms QRS Dur : 072 ms QT Int : 438 ms P-R-T Axes : 044 -44 -08 degrees QTc Int : 465 ms Normal sinus rhythm Left axis deviation Inferior infarct , age undetermined Abnormal ECG Confirmed by AUBRIE HERNANDEZ, BECKY ([id number]), general expeditor HERMINIO SERNA ([id number]) on 04/18/2021 7:55:18 AM Referred By: IBRAHIMA Confirmed By:BECKY ALFRED MD
[2021-04-13] MEDS: Losartan Potassium 100 MG Tablet PO (19:40)
--- NOTE | 2021-04-13 20:00 | CT_ITS ---
STUDY: CTA CHEST REASON FOR EXAM: Female, 85 years old. sob, hx of VTE, high risk for PE RADIATION DOSAGE (If Supplied By Facility): CTDIvol = ( 10.17 ) mGy, DLP = ( 381.87 ) mGycm TECHNIQUE: The examination was performed with the intravenous administration of IV 100mL Isovue-370. Post-processing of the angiographic images was performed, with multiplanar reformation and 3D reconstruction. Individualized dose optimization techniques were used for this CT. COMPARISON: None. FINDINGS: High quality exam with well-opacified pulmonary arteries and no significant motion artifact. Normal enhancement of the main pulmonary artery and right and left pulmonary arteries. Normal enhancement of the bilateral peripheral pulmonary arteries. There is no demonstrated pulmonary embolism. There is mild increased diameter of the right and left main pulmonary arteries measuring up to 3 cm on the right. This can be seen with increased right heart pressure as well as mitral valve disease. Correlation is recommended. No evidence of right heart enlargement or right heart strain. There are extensive coronary artery intimal calcifications and/or stents. No pericardial effusion. Thoracic aorta is within normal limits. Lungs are clear with no nodule, mass or airspace disease. No pleural effusion or pneumothorax. Visualized portions of the upper abdomen included in [id number] are notable for bowel aortic intimal calcifications. Visualized portions of the solid organs upper abdomen are within normal limits. CT/CTA Chest W/WO Contrast IMPRESSION: No pulmonary embolism. No acute cardiopulmonary disease. Trace diameter pulmonary arteries may be indicative of right heart increased pressure or pulmonary valve disease. Electronically Signed: Abdelrahman Esparza DO at 22:18 EDT Tel , Service support ,
[2021-04-13] MEDS: Atorvastatin Calcium 20 MG Tablet PO (22:14)
[2021-04-13] MEDS: Metoprolol(XL)Succ 50 MG Tablet PO (22:14)
[2021-04-13] MEDS: Clopidogrel Bisulfate 75 MG Tablet PO (22:14)
[2021-04-13] MEDS: MELATONIN 10 MG TABLET PO (22:16)
[2021-04-13] MEDS: Acetaminophen 325 MG Tablet 650 MG PO (22:16)
[2021-04-13] MEDS: Enoxaparin 40 MG/0.4 ML Syringe SC (22:17)
[2021-04-14] VITALS (12 sets, daily range): BP systolic 135–167; BP diastolic 60–69; PULSE 52–61; RESP 11–21; TEMP 36.3–36.8; O2SAT 95–99
[2021-04-14] MEDS: Acetaminophen 325 MG Tablet 650 MG PO (04:46)
[2021-04-14 05:08] LABS: Absolute Lymphocyte Count 1.95 X10^3/uL (0.83-4.51); Absolute Neutrophil Count 6.4 X10^3/uL (2.0-7.7); Basophil# 0.05 X10^3/uL; Basophil% 0.5 % (0-1); Eosinophil# 0.05 X10^3/uL; Eosinophils% 0.5 % (0-5); Hematocrit 38.2 % (37-47); Lymphocyte # 1.95 X10^3/ul (0.83-4.51); Lymphocyte % 21.3 % (19-41); Mean Corpuscular Hgb 31.9 pg (27.0-32.0); Mean Corpuscular Volume 93.6 fL (81-99); Mean Platelet Vol. 9.4 fl (6.2-12.0); Monocyte# 0.62 X10^3/uL; Monocyte% 6.8 % (0-10); NRBC Flagged by Analyzer 0 % (0-5); Neutrophil # 6.44 X10^3/uL (2.7-7.7); Neutrophil % 70.4 % (47-70); Platelet Count 397 K/mm3 (150-450); RBC Distribution Width SD 44.4 fl (35.1-43.9); Red Blood Count 4.08 M/mm3 (4.2-5.4); White Blood Count 9.2 K/mm3 (4.4-11.0)
[2021-04-14 05:34] LABS: Anion Gap 11 (5-15); BUN 21 mg/dL (7-18); BUN/Creat Ratio 24.2 RATIO (10-20); Calcium,Total 9.2 mg/dL (8.5-10.1); Chloride 107 mmol/L (98-107); Creatinine, Serum 0.87 mg/dL (0.55-1.02); EST Glomerular Filtration Rate 66 mL/min (>60); Est Glom Filt Rate - Afr Amer 80 mL/min (>60); Estimated Creatinine Clearance 39.11 ml/min; Glucose 123 mg/dL (74-106); Potassium 3.6 mmol/L (3.5-5.1); Sodium Level 140 mmol/L (136-145); Thyroid Stim Hormone (TSH) 2.99 uIU/mL (0.358-3.74)
[2021-04-14] MEDS: Potassium Chloride Oral Tablet 10 MEQ PO (07:57)
[2021-04-14] MEDS: Aspirin E.C. 81 MG Tablet PO (07:57)
--- NOTE | 2021-04-14 08:18 | PCM.DC ---
Discharge Instructions Diet Discharge Diet: No restrictions Activity Discharge Activity: Return to Normal Activity Follow Up Care Test Results: Test results from this visit will be discussed in further detail at your follow-up appointment, if applicable. Discharge Plan Admission Admit Date/Time: 04/13/21 18:36 Primary Reason for Your Visit: uncontrolled hypertension Attending Provider: Feliz Sheldon Primary Care Provider: Patrick Cowart Consulting Providers: Adonis Viera Discharge Orders/Prescriptions Prescriptions: Continued fenofibrate nanocrystallized 145 mg tablet 145 mg PO DAILY RF: 0 potassium chloride 10 mEq capsule, extended release 10 meq PO DAILY RF: 0 paroxetine HCl 10 mg tablet 15 mg PO DAILY RF: 0 vitamin B complex Tablet 1 tab PO DAILY RF: 0 aspirin [Adult Low Dose Aspirin] 81 mg tablet,delayed release (DR/EC) 81 mg PO DAILY RF: 0 metoprolol succinate 100 mg tablet extended release 24 hr 50 mg PO BID RF: 0 hydrochlorothiazide 25 mg tablet 25 mg PO DAILY RF: 0 losartan 100 mg tablet 100 mg PO QHS RF: 0 ascorbic acid (vitamin C) [Vitamin C] 500 mg Tablet 500 mg PO DAILY RF: 0 cholecalciferol (vitamin D3) [Vitamin D3] 25 mcg (1,000 unit) Capsule 25 mcg PO DAILY RF: 0 amlodipine 10 mg tablet 10 mg PO DAILY Qty: 0 RF: 0 atorvastatin [Lipitor] 20 mg tablet 20 mg PO QHS Qty: 90 RF: 2 No Action coenzyme Q10 100 mg tablet 100 mg PO DAILY RF: 0 Brilinta 90 mg Tablet 90 mg PO BID Qty: 180 RF: 2 Referrals / Follow Up: Patrick Cowart MD [Primary Care Provider] - Within 1 Week Disposition Disposition (needs filled in before D/C Order can be placed): Home, Self Care
[2021-04-14] MEDS: Vitamin B Comp W-C Capsule 1 CAP PO (08:44)
[2021-04-14] MEDS: hydroCHLOROthiazide 25 MG Tablet PO (08:45)
[2021-04-14] MEDS: amLODIPine 10 MG Tablet PO (08:46)
[2021-04-14] MEDS: Metoprolol(XL)Succ 50 MG Tablet PO (08:47)
[2021-04-14] MEDS: Fenofibrate 145 MG Tablet PO (08:48)
[2021-04-14] MEDS: Ascorbic Acid 500 MG Tablet PO (08:48)
[2021-04-14] MEDS: Cholecalciferol (VIT D3) 25 MCG TABLET (1,000 UNITS) PO (08:49)
[2021-04-14] MEDS: Paroxetine 20 MG Tablet PO (08:49)
--- NOTE | 2021-04-14 09:10 | PCM.DC.SUM ---
Providers Date of Admission: 04/13/21 Date of Discharge: 04/14/21 Primary Care Physician: Dr. Patrick Cowart MD Consultations 04/13/21 19:27 Consult: Cardiology Routine Consulting Provider: Adonis Viera Reason for Consult: Hypertensive emergency, shortness of breath. EMERGENT Consult: No MD Notified: Yes Date Notified: 04/13/21 Time Notified: 16:24 Method of Notification: Verbal Reason For Visit: HYPERTENSIVE EMERGENCY Diagnosis Discharge Diagnosis (1) Hypertensive emergency: Status: Acute Code(s): I16.1 - Hypertensive emergency Plan: Final diagnosis: #1 uncontrolled hypertension #2 chronic anxiety #3 hyperlipidemia #4 coronary artery disease Medications at Discharge Home Medications aspirin 81 mg tablet,delayed release 81 mg PO DAILY 12/06/20 fenofibrate nanocrystallized 145 mg tablet 145 mg PO DAILY tab 12/06/20 potassium chloride 10 mEq capsule,extended release 10 meq PO DAILY cap 12/06/20 vitamin B complex 1 tab PO DAILY 12/06/20 atorvastatin 20 mg tablet 20 mg PO QHS #90 tab 12/13/20 ascorbic acid (vitamin C) [Vitamin C] 500 mg PO DAILY 04/13/21 cholecalciferol (vitamin D3) [Vitamin D3] 25 mcg PO DAILY 04/13/21 hydrochlorothiazide 25 mg PO DAILY 04/13/21 losartan 100 mg PO QHS 04/13/21 metoprolol succinate 50 mg PO BID 04/13/21 amlodipine 10 mg PO DAILY #0 tab 04/14/21 buspirone 10 mg PO BID #90 tab 04/14/21 clopidogrel 75 mg PO DAILY #30 tab 04/14/21 paroxetine HCl 20 mg PO DAILY #0 tab 04/14/21 Hospital Course Operations None Procedures None Summary of Care Provided Minutes Spent on Discharge: 31 Hospital Course: This 85-year-old white male was seen in the emergency room with complaint of elevated blood pressure, patient also complained of some vague shortness of breath, work-up in the emergency room included a chest x-ray and a CT of the chest which showed no abnormalities, patient's pulse ox was normal on room air. Patient was given IV hydralazine in the emergency room but her pressure did not normalize and she was admitted to ICU as a hypertensive emergency-this examiner upon reviewing the medical record and seeing the patient did not agree that she had a hypertensive emergency, she had uncontrolled hypertension and anxiety. Patient's blood pressure medications were adjusted On 04/14/2021, patient was seen and examined: On examination she appeared in good health and spirits, she does not appear to be in any distress. Vital signs as documented. Skin warm and dry and without overt rashes. Neck without JVD, thyroid appears normal, trachea is midline, neck is supple. Lungs clear, normal air movement was noted. Heart exam notable for regular rhythm, normal sounds and absence of murmurs, rubs or gallops. Abdomen unremarkable and without evidence of organomegaly, masses, or abdominal aortic enlargement, bowel sounds are present in all 4 quadrants, no abdominal tenderness was noted. Extremities nonedematous, no cyanosis was noted, no clubbing was noted. Neuro: Cranial nerves II through XII are grossly intact, no focal motor deficits were noted, sensation to light touch and pinprick is intact, motor exam 5/5 throughout. Psych: Patient is alert and oriented x3, she does not appear anxious or depressed, she does not appear agitated. I talked at length with the patient's daughter by phone on 04/14/2021, I elected to place the patient on anxiety medication and increase her blood pressure medication. She was discharged to home in stable condition on 04/14/2021. Weight / BMI Weight Weight: 72.3 kg Body Mass Index (BMI) 28.2 ABG / Lab / Microbiology Data Result Diagrams: 04/14/21 04:45 04/14/21 04:45 Laboratory: Laboratory Results - last 24 hr 04/13/21 13:10: WBC 7.1, RBC 4.04 L, Hgb 12.9, Hct 37.3, MCV 92.3, MCH 31.9, MCHC 34.6, RDW Std Deviation 43.2, RDW Coeff of Shae 12.8, Plt Count 348, MPV 9.3, Immature Gran % (Auto) 0.600, Neut % (Auto) 69.3, Lymph % (Auto) 21.5, Henderson % (Auto) 7.6, Eos % (Auto) 0.4, Baso % (Auto) 0.6, Absolute Neuts (auto) 4.9, Absolute Lymphs (auto) 1.53, Nucleated RBC % 0 04/13/21 13:10: Sodium 138, Potassium 3.5, Chloride 108 H, Carbon Dioxide 22.0, Anion Gap 8, BUN 23 H, Creatinine 0.78, Estim Creat Clear Calc 34.02, Est GFR (MDRD) Af Amer 90, Est GFR (MDRD) Non-Af 75, BUN/Creatinine Ratio 29.6 H, Glucose 82, Calcium 9.9, Troponin I High Sens 8 04/13/21 13:10: B-Natriuretic Peptide 72.2 04/13/21 13:10: Magnesium 1.9 04/13/21 18:00: POC Glucose 139 H 04/14/21 04:45: WBC 9.2, RBC 4.08 L, Hgb 13.0, Hct 38.2, MCV 93.6, MCH 31.9, MCHC 34.0, RDW Std Deviation 44.4 H, RDW Coeff of Shae 13.0, Plt Count 397, MPV 9.4, Immature Gran % (Auto) 0.500, Neut % (Auto) 70.4 H, Lymph % (Auto) 21.3, Henderson % (Auto) 6.8, Eos % (Auto) 0.5, Baso % (Auto) 0.5, Absolute Neuts (auto) 6.4, Absolute Lymphs (auto) 1.95, Nucleated RBC % 0 04/14/21 04:45: Sodium 140, Potassium 3.6, Chloride 107, Carbon Dioxide 22.0, Anion Gap 11, BUN 21 H, Creatinine 0.87, Estim Creat Clear Calc 39.11, Est GFR (MDRD) Af Amer 80, Est GFR (MDRD) Non-Af 66, BUN/Creatinine Ratio 24.2 H, Glucose 123 H, Calcium 9.2, TSH 2.99 Microbiology: Microbiology 04/13/21 13:05 Nasal Secretion SARS-CoV-2 Antigen (Rapid) - Final Radiography Diagnostic Testing: Radiology Impression Chest X-Ray 04/13/21 13:17 IMPRESSION: Normal x-ray examination of the chest. Electronically Signed: Go Olivo MD at 14:23 EDT Tel , Service support , Chest CTA 04/13/21 20:00 IMPRESSION: No pulmonary embolism. No acute cardiopulmonary disease. Trace diameter pulmonary arteries may be indicative of right heart increased pressure or pulmonary valve disease. Electronically Signed: Abdelrahman Esparza DO at 22:18 EDT Tel , Service support , D/C Instructions Discharge Diet: No restrictions Meaningful Use Info Meaningful Use Diagnoses (Choose all that apply): None applicable Discharge Plan Admission Admit Date/Time: 04/13/21 18:36 Primary Reason for Your Visit: uncontrolled hypertension Attending Provider: Feliz Sheldon Primary Care Provider: Patrick Cowart Consulting Providers: Adonis Viera Discharge Orders/Prescriptions Prescriptions: New clopidogrel 75 mg Tablet 75 mg PO DAILY Qty: 30 RF: 0 buspirone 10 mg tablet 10 mg PO BID Qty: 90 RF: 0 Continued fenofibrate nanocrystallized 145 mg tablet 145 mg PO DAILY RF: 0 potassium chloride 10 mEq capsule, extended release 10 meq PO DAILY RF: 0 vitamin B complex Tablet 1 tab PO DAILY RF: 0 aspirin [Adult Low Dose Aspirin] 81 mg tablet,delayed release (DR/EC) 81 mg PO DAILY RF: 0 metoprolol succinate 100 mg tablet extended release 24 hr 50 mg PO BID RF: 0 hydrochlorothiazide 25 mg tablet 25 mg PO DAILY RF: 0 losartan 100 mg tablet 100 mg PO QHS RF: 0 ascorbic acid (vitamin C) [Vitamin C] 500 mg Tablet 500 mg PO DAILY RF: 0 cholecalciferol (vitamin D3) [Vitamin D3] 25 mcg (1,000 unit) Capsule 25 mcg PO DAILY RF: 0 amlodipine 10 mg tablet 10 mg PO DAILY Qty: 0 RF: 0 atorvastatin [Lipitor] 20 mg tablet 20 mg PO QHS Qty: 90 RF: 2 Changed paroxetine HCl 10 mg tablet 20 mg PO DAILY Qty: 0 RF: 0 Discontinued coenzyme Q10 100 mg tablet 100 mg PO DAILY RF: 0 Brilinta 90 mg Tablet 90 mg PO BID Qty: 180 RF: 2 Referrals / Follow Up: Patrick Cowart MD [Primary Care Provider] - Within 1 Week Disposition Disposition (needs filled in before D/C Order can be placed): Home, Self Care Charges/Coding Visit Charges Inpatient E&M: 05136 Disch Hosp
--- NOTE | 2021-04-14 09:18 | CON.PCM.CA_ITS ---
Assessment & Plan Assessment/Plan (1) Hypertensive emergency: PLAN: Blood pressure has improved. Continue current medications at this time. As an outpatient if blood pressure still remains elevated we could maybe consider switching from metoprolol to carvedilol if felt to be indicated at that time. (2) Atherosclerotic heart disease of [place] coronary artery with other forms of angina pectoris: PLAN: Agree with switching from Brilinta to Plavix at this time. Patient's shortness of breath is also improved with this change in medication and with better blood pressure control. Okay to discharge home from a cardiac standpoint. Follow-up with Dr. Cortés as an outpatient. HPI Consult Data Date of Consult: 04/14/21 HPI Narrative HPI Narrative: VENU RAMIREZ, is a 85 F who presents with shortness of breath. Patient's Brilinta was switched to Plavix and this has resulted in significant improvement. Patient's blood pressure was also elevated on presentation and has improved at this time. Review of systems: All systems reviewed. All else is negative except that in HPI [facility] Medical History Aortic valve calcification Atherosclerotic heart disease of [place] coronary artery with other forms of angina pectoris Benign essential hypertension Chilaiditi's syndrome Degenerative disc disease, cervical Depression Essential tremor GERD (gastroesophageal reflux disease) History of pulmonary embolus (PE) (2010) Hyperlipidemia Iliotibial band syndrome, left leg Lymphedema Segmental and somatic dysfunction of cervical region Segmental and somatic dysfunction of thoracic region Spinal stenosis at L4-L5 level Home Medications aspirin 81 mg tablet,delayed release 81 mg PO DAILY 12/06/20 [History Last Taken 12/26/20] fenofibrate nanocrystallized 145 mg tablet 145 mg PO DAILY tab 12/06/20 [History Last Taken Unknown] potassium chloride 10 mEq capsule,extended release 10 meq PO DAILY cap 12/06/20 [History Last Taken 12/11/20] vitamin B complex 1 tab PO DAILY 12/06/20 [History Last Taken Unknown] atorvastatin 20 mg tablet 20 mg PO QHS #90 tab 12/13/20 [Rx Last Taken Unknown] ascorbic acid (vitamin C) [Vitamin C] 500 mg PO DAILY 04/13/21 [History Last Taken Unknown] cholecalciferol (vitamin D3) [Vitamin D3] 25 mcg PO DAILY 04/13/21 [History Last Taken Unknown] hydrochlorothiazide 25 mg PO DAILY 04/13/21 [History Last Taken Unknown] losartan 100 mg PO QHS 04/13/21 [History Last Taken Unknown] metoprolol succinate 50 mg PO BID 04/13/21 [History Last Taken Unknown] amlodipine 10 mg PO DAILY #0 tab 04/14/21 [Rx Last Taken Unknown] buspirone 10 mg PO BID #90 tab 04/14/21 [Rx Last Taken Unknown] clopidogrel 75 mg PO DAILY #30 tab 04/14/21 [Rx Last Taken Unknown] paroxetine HCl 20 mg PO DAILY #0 tab 04/14/21 [Rx Last Taken Unknown] Allergy/AdvReac Type Severity Reaction Status Date / Time naproxen [From Aleve] AdvReac Itching Verified 04/13/21 12:29 Family History Grandfather Ward's disease Father CAD (coronary artery disease) Sister CAD (coronary artery disease) Hypertension Gout Mother Hypertension CHF (congestive heart failure) Grandfather Cancer Prostate Grandmother CVA (cerebral vascular accident) Daughter Factor V Leiden Surgical History History of arthroscopy of left knee History of bilateral cataract extraction History of coronary artery stent placement (12/26/20) History of hemorrhoidectomy History of hysterectomy History of repair of rectocele History of tonsillectomy Social History Smoking Status: Never smoker alcohol intake: current details: Occasionally substance use type: does not use Physical Exam Const alert and oriented x3 Orientation / Consciousness: awake HEENT normocephalic Eyes no scleral icterus Chest inspection of chest normal Resp normal respiratory effort Cardio regular rate Extremity no pedal edema Skin no rashes or lesions noted Neuro oriented x3 Psych mental status grossly normal Charges/Coding Visit Charges Inpatient E&M: 36245 Init Hosp L2 Objective Data Vital Signs: Vital Signs Temp Pulse Resp BP Pulse Ox 97.4 F L 61 21 H 167/69 H 99 04/14/21 08:00 04/14/21 08:47 04/14/21 08:00 04/14/21 08:47 04/14/21 08:00 Oxygen Delivery Method Room Air Weight: 159 lb 6.307 oz Body Mass Index (BMI) 28.2 Intake & Output: Intake and Output for Last 24 Hours 04/12/21 04/13/21 04/14/21 23:59 23:59 23:59 Intake Total 120 / 120 Output Total 600 / 600 300 / 300 Balance -592 / -592 -180 / -180 Lab / Micro Data Result Diagrams: 04/14/21 04:45 04/14/21 04:45 Labs: Laboratory Results - last 24 hr 04/13/21 13:10: WBC 7.1, RBC 4.04 L, Hgb 12.9, Hct 37.3, MCV 92.3, MCH 31.9, MCHC 34.6, RDW Std Deviation 43.2, RDW Coeff of Shae 12.8, Plt Count 348, MPV 9.3, Immature Gran % (Auto) 0.600, Neut % (Auto) 69.3, Lymph % (Auto) 21.5, Bates % (Auto) 7.6, Eos % (Auto) 0.4, Baso % (Auto) 0.6, Absolute Neuts (auto) 4.9, Absolute Lymphs (auto) 1.53, Nucleated RBC % 0 04/13/21 13:10: Sodium 138, Potassium 3.5, Chloride 108 H, Carbon Dioxide 22.0, Anion Gap 8, BUN 23 H, Creatinine 0.78, Estim Creat Clear Calc 34.02, Est GFR (MDRD) Af Amer 90, Est GFR (MDRD) Non-Af 75, BUN/Creatinine Ratio 29.6 H, Glucose 82, Calcium 9.9, Troponin I High Sens 8 04/13/21 13:10: B-Natriuretic Peptide 72.2 04/13/21 13:10: Magnesium 1.9 04/13/21 18:00: POC Glucose 139 H 04/14/21 04:45: WBC 9.2, RBC 4.08 L, Hgb 13.0, Hct 38.2, MCV 93.6, MCH 31.9, MCHC 34.0, RDW Std Deviation 44.4 H, RDW Coeff of Shae 13.0, Plt Count 397, MPV 9.4, Immature Gran % (Auto) 0.500, Neut % (Auto) 70.4 H, Lymph % (Auto) 21.3, Bates % (Auto) 6.8, Eos % (Auto) 0.5, Baso % (Auto) 0.5, Absolute Neuts (auto) 6.4, Absolute Lymphs (auto) 1.95, Nucleated RBC % 0 04/14/21 04:45: Sodium 140, Potassium 3.6, Chloride 107, Carbon Dioxide 22.0, Anion Gap 11, BUN 21 H, Creatinine 0.87, Estim Creat Clear Calc 39.11, Est GFR (MDRD) Af Amer 80, Est GFR (MDRD) Non-Af 66, BUN/Creatinine Ratio 24.2 H, Glucose 123 H, Calcium 9.2, TSH 2.99 Micro: Microbiology 04/13/21 13:05 Nasal Secretion SARS-CoV-2 Antigen (Rapid) - Final Cardiology Labs/Tests 04/13/21 13:10: WBC 7.1, RBC 4.04 L, Hgb 12.9, Hct 37.3, MCV 92.3, MCH 31.9, MCHC 34.6, Plt Count 348, MPV 9.3, Immature Gran % (Auto) 0.600, Neut % (Auto) 69.3, Lymph % (Auto) 21.5, Bates % (Auto) 7.6, Eos % (Auto) 0.4, Baso % (Auto) 0.6, Absolute Neuts (auto) 4.9, Nucleated RBC % 0 04/13/21 13:10: Sodium 138, Potassium 3.5, Chloride 108 H, Carbon Dioxide 22.0, Anion Gap 8, BUN 23 H, Creatinine 0.78, Est GFR (MDRD) Af Amer 90, Est GFR (MDRD) Non-Af 75, BUN/Creatinine Ratio 29.6 H, Glucose 82, Calcium 9.9 04/13/21 13:10: B-Natriuretic Peptide 72.2 04/13/21 13:10: Magnesium 1.9 04/14/21 04:45: WBC 9.2, RBC 4.08 L, Hgb 13.0, Hct 38.2, MCV 93.6, MCH 31.9, MCHC 34.0, Plt Count 397, MPV 9.4, Immature Gran % (Auto) 0.500, Neut % (Auto) 70.4 H, Lymph % (Auto) 21.3, Bates % (Auto) 6.8, Eos % (Auto) 0.5, Baso % (Auto) 0.5, Absolute Neuts (auto) 6.4, Nucleated RBC % 0 04/14/21 04:45: Sodium 140, Potassium 3.6, Chloride 107, Carbon Dioxide 22.0, Anion Gap 11, BUN 21 H, Creatinine 0.87, Est GFR (MDRD) Af Amer 80, Est GFR (MDRD) Non-Af 66, BUN/Creatinine Ratio 24.2 H, Glucose 123 H, Calcium 9.2 Rhythm: EKG: ECHO: Stress Test: Cardiac Cath: PCI: CT Surgery: Holter monitor: EPS: PPM: CXR: Chest CT Scan: Radiography Diagnostic Testing: Radiology Impression Chest X-Ray 04/13/21 13:17 IMPRESSION: Normal x-ray examination of the chest. Electronically Signed: Go Olivo MD at 14:23 EDT Tel , Service support , Chest CTA 04/13/21 20:00 IMPRESSION: No pulmonary embolism. No acute cardiopulmonary disease. Trace diameter pulmonary arteries may be indicative of right heart increased pressure or pulmonary valve disease. Electronically Signed: Abdelrahman Esparza DO at 22:18 EDT Tel , Service support ,
[2021-04-14] MEDS: Clopidogrel Bisulfate 300 MG Tablet PO (10:18)
== END 2021-04-14 10:30 | disposition home or self-care (01) | DRG 305 ==
LOC: ED 18:14 → ICU 18:42
PROVIDERS: Emergency Medicine; Admitting Provider Internal Medicine; Emergency Provider Emergency Medicine; PCP Family Medicine; Visit Provider Internal Medicine
DX: I16.1 Hypertensive emergency (principal); Q43.3 Congenital malformations of intestinal fixation; E78.5 Hyperlipidemia, unspecified; F41.9 Anxiety disorder, unspecified; T45.525A Adverse effect of antithrombotic drugs, initial encounter; I25.118 Atherosclerotic heart disease of native coronary artery with other forms of angina pectoris; I10 Essential (primary) hypertension; F32.A Depression, unspecified; G25.0 Essential tremor; K21.9 Gastro-esophageal reflux disease without esophagitis; M48.061 Spinal stenosis, lumbar region without neurogenic claudication; M99.01 Segmental and somatic dysfunction of cervical region; M99.02 Segmental and somatic dysfunction of thoracic region; Z86.711 Personal history of pulmonary embolism; Z79.899 Other long term (current) drug therapy; Z79.82 Long term (current) use of aspirin
CPT/HCPCS: 36415; 71045; 71275; 80048; 80053; 82962; 83735; 83880; 84439; 84443; 84484; 85025; 87426; 93005; 93798; 99251; 99285; J7030; J7050; Q9967; A4216; G0463

== ENCOUNTER 2021-04-17 10:30 | Outpatient (RCR) | payer MEDICARE, OTHER, SELFPAY ==
[2021-03-13 06:57] VITALS: BMI 29.2
[2021-03-29 00:31] VITALS: BP 152/60; BP 180/70; BP 190/70; BMI 30.6
--- NOTE | 2021-04-10 08:47 | PCM.CR.ITP ---
Diagnosis Exercise - 90-day Assessment - Visit Date of Eval: 04/10/21 Session #:: 32 - Physician Prescribed Exercise Modalities: Treadmill, Airdyne, NuStep Frequency: 3x/week for 12 weeks [36 sessions] Intensity: 60-80% of age predicted maximum heart rate reserve Current METSs:: 3.0 unchanged, did not meet the goal of 5.0 METs Target Heart Rate:: 81-108 Current RPE:: 12 Maximum Excercise HR:: 76 Resting Blood Pressure: 160/62 - Series of BPs had been sent to cardiology Maximum Exercise Blood Pressure: 182/74 EKG Type: SB to NSR with rare PAC Current Physical Activity or Exercising minutes: 30-45 min - Outcomes & Goals Goals:: Verbalizes understanding of THR, RPE & goal METS by session 6, Documents in home exercise log/reports 30 min aerobic 5 day/wk by DC, Demonstrates accurate pulse taking by DC - Intervention & Plan Exercise Program Goals: Instruct on personal THR & RPE, Instruct on MET level & personal MET goal, Show patient to take own pulse /validate performance until accurate, Instruct on home exercise - 30-day Reassessments 30 day Reassessments:: Progressing - Physical Activity Home Exercise Physical Activity - Home Exercise: Safe Exercise, Warm-up, Self-monitoring, Cool-Down, Home Exercise > 30 min Daily, Sitting Time <3 hours/daily - Outcomes & Goals Outcomes/Goals: Demonstrates correct Warm-up/exercise Cool-Down (S3) if = 2.5 METs, Verbalizes symptoms of exercise intolerance by Session 3 (S3), Demonstrate safe equipment use (S3) & follows exercise prescrition (6) - Intervention & Plan Plan/Intervention: Instruct warm-up & cool-down if exercising at > 2 METs, Instruct on symptoms of exercise intolerance & actions to take, Instruct & monitor on saf, Assess intial functional capacity & safety risk - 30-day Reassessments 30 day Reassessments:: Progressing Nutrition - Initial Assessment Nutrition - 30-Day Assessment Nutrition - 60-Day Assessment Nutrition - 90-Day Assessment - Program Goals Nutrition Program Goals: LDL <100 optimal. 100 - 129 Near optimal. 130 - 159 Borderline High. 160 - 189 High. Total Cholesterol <200 desirable. 200 - 239 Borderline High. >/= 240 High. HDL < 40 Low >/=60 High. Triglycerides <150 desirable. <199 optimal. VlDL 5 - 40. HgbA1C <7%. BMI <25 Patient has diagnosis of Hyperlipidemia (ICD E78)?: Yes - Visit Date of Assessment:: 04/10/21 Session #:: 32 - Cholesterol/Lipids Determine presence & major risk factors that modify LDL goal: Hypertension or hypertensive medication, Age men > 45 years; women >/= 55 years Outcomes/Goals: Pt IDs own risk factors & lifestyle modifications by Session 10, Verbalizes symptoms of angina & response by session 3., Pt independently manages Intervention/Plan: Instruct on personal lipid levels & lipid goals/NCEP guidelines 30-day Reassessments:: Met - Diabetes (Other Core Measures) Diabetes Type: Not Applicable - Weight Mgt (Other Care) Not Applicable: Yes Height: 5 ft 3 in Weight:: 164 lb BMI: 29.0 Diagnosis Overweight/Obesity BMI> 30% ICD-10 E66: No Diagnosis High BMI/Morbid Obesity BMI> 35% ICD-10 Z68: No Outcomes/Goals: Pt sets, maintains & shows weight loss goal & trend during rehab Intervention/Plan: Instruct on ideal BMI & set weight loss goal w/patient, Assist pt to ID & incorporate diet changes for weight loss by S9, Encourage goal of using 250-300dcal per session for weight loss 30 day Reassessments:: Not Met Reassessment Notes & Comments:: Patient maintained weight this 30-day period. - Healthy Eating Habits Will attend diet classes:: Yes Outcomes/Goals:: Consume diet rich in vegs,fruits,whole grain/high fiber,fish,lean meat, Limit sat/trans fats,cholesterol & added salts & sugars Intervention/Plan:: Assess current eating habits 30-day Reassessments:: Progressing Nutrition - Final Assessment Medical - Initial Assessment Medical- 30-Day Assessment Medical- 60-Day Assessment Medical- 90-Day Assessment - Visit Date of Eval: 04/10/21 Session #:: 32 - Medication Compliance Preventative Medication(s):: Aspirin, Ticagrelor/P2Y12 inhibitor, Statin/lipid, Beta tereso H/O mental health issues: depression, anxiety, or addiction?: No Doesn?t believe in the benefits of treatment?: No Believes medications are unnecessary or harmful?: No Has a concern about medication side effects?: No Expresses concern over the cost of medications?: No Outcomes/Goals: Verbalizes medications,desired effect & common side effects @ DC, Pt self-reports following medication regimen, Keeps card in wallet w/medications listed by DC Interventions/plans: Instruct on medication effects & side effects, Review medication list w/patient every two weeks, Instruct importance of taking meds as ordered & assist problem solving 30-day Reassessments:: Progressing - Tobacco Cessation Referral Smoking Cessation Referral:: No Individual Education/Counseling:: No Education Schedule Given:: Yes Medical - Final Assessment Psychosocial - Initial Assess Psychosocial - 30-Day Assess Psychosocial - 60-Day Assess Psychosocial - 90-Day Assess - VIsit Date of Eval: 04/10/21 Session #:: 32 Not Applicable: Yes History of previous Mental disease:: No - Psychosocial Test Tool Used:: PHQ-9 Questionnaire phq-9 Severity: Severity. 1-4 Minimal Depression. 5-9 Mild Depression. 10-14 Moderate Depression. 15-19 Moderately Sever Depression. 20-27 Severe Depression. Rule: - Referral to Behavioral Health PS - Interventions: Yes Attend Stress Management Classes, No Referral to Behavioral Health if PHQ-9 score >9:, No Referral to [facility], No Referral to Physician if PHQ-9 if score is 5-9: - Outcomes/Goals: See list Psychosocial Outcomes/Goals:: ID's personal stressors & 2 strategies to manage stress by discharge - Intervention/Plan: See List Interventions/Plan:: Assess stressors,coping strategies & signs of derpression on admission, Instruct/assist pt to develop coping & personal stress Mgt strategies, Instruct patient to recognize signs & symptoms of depression, Instruct patient to recog - 30-day Reassessments: 30 day Reassessments:: Progressing Psychosocial - Final Assessmen Patient Health Questionnaire 30-Day Re-eval Assessment 1. Little interest or pleasure in doing things: Several days 2. Feeling down, depressed, or hopeless: Not at all 3. Trouble falling or staying asleep, or sleeping too much: More than half the days 4. Feeling tired or having little energy: Several days 5. Poor appetite or overeating: Not at all 6. Feeling bad about yourself -- or that you are a failure or have let yourself or your family down: Not at all 7. Trouble concentrating on things, such as reading the newspaper or watching television: Not at all 8. Moving or speaking so slowly that other people could have noticed. Or the opposite - being so fidgety or restless that you have been moving around a lot more than usual: Not at all 9. Thoughts that you would be better off , or of hurting yourself in some way: Not at all How difficult have these problems made it for you to do your work, take care of things at home, or get along with other people?: Not difficult at all Total Score: 4 Self-Efficacy 30-Day Re-eval Assessment We would like to know how confident you are in doing certain activities. Please select your confidence level for:: Select your confidence level for the following using the scale 1-10 where 1 is not at all confident and 10 is totally confident. Your score is the average of all 6 responses. Fatigue: How confident are you that you can keep the fatigue caused by your disease from interfering with the things you want to do? Select Number: 8 Physical Discomfort or Pain: How confident are you that you can keep the physical discomfort or pain of your disease from interfering with the things you want to do? Select Number: 8 Emotional Distress: How confident are you that you can keep the emotional distress caused by your disease from interfering with the things you want to do? Select Number: 8 Other Symptoms or Health Problems: How confident are you that you can keep other symptoms or health problems from interfering with the things you want to do? Select Number: 8 Different Tasks and Activities: How confident are you that you can do the different tasks and activities needed to manage your health condition so as to reduce your need to see a doctor? Select Number: 8 Medication: How confident are you that you can do things other than just taking medication to reduce how much your illness affects your everyday life? Select Number: 8 Total Score:: 8 Nutrition Survey
[2021-04-10 08:54] VITALS: BP 160/62; BMI 29.0
== END 2021-04-28 23:59 ==
LOC: CR 10:30
PROVIDERS: PCP Family Medicine; Referring Provider Internal Medicine Cardiovascular Disease; Visit Provider Internal Medicine Cardiovascular Disease
DX: I25.118 Atherosclerotic heart disease of native coronary artery with other forms of angina pectoris (principal); I35.9 Nonrheumatic aortic valve disorder, unspecified; I10 Essential (primary) hypertension; Q43.3 Congenital malformations of intestinal fixation; E78.5 Hyperlipidemia, unspecified; R06.00 Dyspnea, unspecified; Z95.5 Presence of coronary angioplasty implant and graft
CPT/HCPCS: 93798

== ENCOUNTER → 2021-10-22 | Outpatient (CLI) | payer MEDICARE, OTHER, SELFPAY ==
[2021-04-10 08:54] VITALS: BMI 29.0
[2021-10-22 10:22] LABS: Erythrocyte Sedimentation Rate 1 mm/hr (0-30)
[2021-10-22 10:24] LABS: Absolute Lymphocyte Count 1.21 X10^3/uL (0.83-4.51); Absolute Neutrophil Count 3.7 X10^3/uL (2.0-7.7); Basophil# 0.06 X10^3/uL; Basophil% 1.1 % (0-1); Eosinophil# 0.18 X10^3/uL; Eosinophils% 3.2 % (0-5); Hematocrit 36.4 % (37-47); Hemoglobin 12.2 g/dL (12.0-15.0); Lymphocyte # 1.21 X10^3/ul (0.83-4.51); Lymphocyte % 21.6 % (19-41); Mean Corp Hgb Conc 33.5 g/dL (32-36); Mean Corpuscular Hgb 31.1 pg (27.0-32.0); Mean Corpuscular Volume 92.9 fL (81-99); Mean Platelet Vol. 9.7 fl (6.2-12.0); Monocyte# 0.41 X10^3/uL; Monocyte% 7.3 % (0-10); NRBC Flagged by Analyzer 0 % (0-5); Neutrophil # 3.69 X10^3/uL (2.7-7.7); Neutrophil % 65.7 % (47-70); Platelet Count 295 K/mm3 (150-450); RBC Distribution Width CV 12.5 % (11.6-14.6); RBC Distribution Width SD 42.8 fl (35.1-43.9); Red Blood Count 3.92 M/mm3 (4.2-5.4); White Blood Count 5.6 K/mm3 (4.4-11.0)
[2021-10-22 10:57] LABS: ALB/GLOB Ratio 1.2 RATIO (0.9-2.4); AST(SGOT) 12 U/L (15-37); Alanine Aminotransfer ALT/SGPT 22 U/L (13-56); Albumin, Serum 3.8 g/dL (3.2-5.0); Alkaline Phosphatase 35 U/L (45-117); Anion Gap 6 (5-15); BUN 26 mg/dL (7-18); CRP < 2.90 mg/L (0.0-3.0); Calcium,Total 9.4 mg/dL (8.5-10.1); Chloride 107 mmol/L (98-107); Cholesterol 122 mg/dL (200); Creatinine, Serum 0.93 mg/dL (0.55-1.02); EST Glomerular Filtration Rate 61 mL/min (>60); Est Glom Filt Rate - Afr Amer 74 mL/min (>60); Globulin 3.2 g/dL (2.2-4.2); Glucose 124 mg/dL (74-106); High Density Lipoprotein 50 mg/dL; Potassium 3.8 mmol/L (3.5-5.1); Sodium Level 140 mmol/L (136-145); Thyroid Stim Hormone (TSH) 2.25 uIU/mL (0.358-3.74); Triglycerides 160 mg/dL; Very Low Density Lipoprotein 32 mg/dL (5-40)
[2021-10-22 11:14] LABS: Microalbumin:Creatinine Ratio 299.4 mg/g CRE (<30 mg/g CRE)
[2021-10-23 19:24] LABS: ANTINUCLEAR ANTIBODIES DIRECT Positive (Negative)
[2021-10-25 14:09] LABS: Anti-Centromere B Ab <0.2 AI (0.0-0.9); Anti-Chromatin <0.2 AI (0.0-0.9); Anti-Jo <0.2 AI (0.0-0.9); Anti-Scleroderma-70 AB <0.2 AI (0.0-0.9); RNP Ab 0.2 AI (0.0-0.9); SJOGREN'S Anti-SS-A test < 0.2 AI (0.0-0.9); SJOGREN'S Anti-SS-B test < 0.2 AI (0.0-0.9); Smith Ab <0.2 AI (0.0-0.9)
[2021-10-25 18:09] LABS: Anti-dsDNA Ab 27 IU/mL (0-9)
== END | disposition home or self-care (01) ==
LOC: MFPLAB 09:09
PROVIDERS: PCP Family Medicine; Referring Provider Family Medicine; Visit Provider Family Medicine
DX: M79.606 Pain in leg, unspecified (principal); E78.5 Hyperlipidemia, unspecified; R53.83 Other fatigue; I10 Essential (primary) hypertension
CPT/HCPCS: 36415; 80053; 80061; 82043; 82570; 83735; 84443; 85025; 85652; 86038; 86140; 86225; 86235

== ENCOUNTER → 2021-11-06 | Outpatient (CLI) | payer MEDICARE, OTHER, SELFPAY ==
[2021-04-10 08:54] VITALS: BMI 29.0
[2021-11-06 16:01] LABS: Anion Gap 9 (5-15); BUN 31 mg/dL (7-18); Calcium,Total 9.7 mg/dL (8.5-10.1); Chloride 105 mmol/L (98-107); Creatinine, Serum 0.84 mg/dL (0.55-1.02); EST Glomerular Filtration Rate 69 mL/min (>60); Est Glom Filt Rate - Afr Amer 83 mL/min (>60); Glucose 88 mg/dL (74-106); Potassium 3.9 mmol/L (3.5-5.1); Sodium Level 140 mmol/L (136-145)
== END | disposition home or self-care (01) ==
LOC: MFPLAB 11:50
PROVIDERS: PCP Family Medicine; Visit Provider Family Medicine
DX: I10 Essential (primary) hypertension (principal)
CPT/HCPCS: 36415; 80048

== ENCOUNTER → 2021-12-10 | Outpatient (CLI) | payer MEDICARE, OTHER, SELFPAY ==
[2021-04-10 08:54] VITALS: BMI 29.0
[2021-12-10 15:33] LABS: EXAGEN MAILED SPECIMEN
[2021-12-10 17:48] LABS: Color, Urine Yellow (Yellow); Glucose, Dipstick Normal (Normal); Ketone-Dipstick Negative (Negative); Leukocyte Esterase-Dipstick 500 /ul (Negative); Nitrite-Dipstick Positive (Negative); Occult Blood-Urine Negative /ul (Negative); Protein-Dipstick 15 mg/dl (Negative); Urine Bilirubin Dipstick Negative (Negative); Urine Clarity Sl. Cloudy (Clear); Urine Urobilinogen Normal (Normal)
[2021-12-10 17:53] LABS: Absolute Lymphocyte Count 1.43 X10^3/uL (0.83-4.51); Absolute Neutrophil Count 4.4 X10^3/uL (2.0-7.7); Basophil# 0.07 X10^3/uL; Eosinophil# 0.19 X10^3/uL; Eosinophils% 2.8 % (0-5); Hematocrit 36.9 % (37-47); Hemoglobin 12.1 g/dL (12.0-15.0); Lymphocyte # 1.43 X10^3/ul (0.83-4.51); Lymphocyte % 21.1 % (19-41); Mean Corp Hgb Conc 32.8 g/dL (32-36); Mean Corpuscular Hgb 31.3 pg (27.0-32.0); Mean Corpuscular Volume 95.3 fL (81-99); Mean Platelet Vol. 9.9 fl (6.2-12.0); Monocyte# 0.66 X10^3/uL; Monocyte% 9.7 % (0-10); NRBC Flagged by Analyzer 0 % (0-5); Neutrophil # 4.37 X10^3/uL (2.7-7.7); Neutrophil % 64.5 % (47-70); Platelet Count 334 K/mm3 (150-450); RBC Distribution Width CV 12.4 % (11.6-14.6); RBC Distribution Width SD 42.7 fl (35.1-43.9); Red Blood Count 3.87 M/mm3 (4.2-5.4); White Blood Count 6.8 K/mm3 (4.4-11.0)
[2021-12-10 17:56] LABS: Protein, Urine (Random) 27.2 mg/dL (<11.9); Protein:Creat Ratio 290 mg/g CRE (0-200)
[2021-12-10 17:57] LABS: ALB/GLOB Ratio 1.3 RATIO (0.9-2.4); AST(SGOT) 14 U/L (15-37); Alanine Aminotransfer ALT/SGPT 25 U/L (13-56); Albumin, Serum 3.9 g/dL (3.2-5.0); Alkaline Phosphatase 41 U/L (45-117); Anion Gap 7 (5-15); BUN 32 mg/dL (7-18); BUN/Creat Ratio 36.4 RATIO (10-20); Calcium,Total 9.4 mg/dL (8.5-10.1); Chloride 107 mmol/L (98-107); Creatinine, Serum 0.88 mg/dL (0.55-1.02); EST Glomerular Filtration Rate 65 mL/min (>60); Est Glom Filt Rate - Afr Amer 79 mL/min (>60); Glucose 130 mg/dL (74-106); Potassium 3.4 mmol/L (3.5-5.1); Protein, Total 6.9 g/dL (6.4-8.2); Sodium Level 140 mmol/L (136-145)
[2021-12-11 09:10] LABS: Hepatitis B Surface Antibody Non-Reactive; Hepatitis B Surface Antigen Non-Reactive (Nonreactive); Hepatitis C Antibody Non-Reactive (Nonreactive)
== END | disposition home or self-care (01) ==
PROVIDERS: PCP Family Medicine; Referring Provider Internal Medicine Rheumatology; Visit Provider Internal Medicine Rheumatology
DX: R76.8 Other specified abnormal immunological findings in serum (principal); M06.4 Inflammatory polyarthropathy; M19.041 Primary osteoarthritis, right hand; M17.0 Bilateral primary osteoarthritis of knee; M48.061 Spinal stenosis, lumbar region without neurogenic claudication; I10 Essential (primary) hypertension; E78.5 Hyperlipidemia, unspecified; I25.10 Atherosclerotic heart disease of native coronary artery without angina pectoris; M79.89 Other specified soft tissue disorders
CPT/HCPCS: 36415; 80053; 81002; 82570; 84156; 85025; 86706; 86803; 87340

== ENCOUNTER → 2022-03-11 | Outpatient (CLI) | payer MEDICARE, OTHER, SELFPAY ==
[2021-04-10 08:54] VITALS: BMI 29.0
[2022-03-11 18:07] LABS: Absolute Lymphocyte Count 1.35 X10^3/uL (0.83-4.51); Absolute Neutrophil Count 4.1 X10^3/uL (2.0-7.7); Basophil# 0.04 X10^3/uL; Basophil% 0.7 % (0-1); Eosinophil# 0.06 X10^3/uL; Hematocrit 37.7 % (37-47); Hemoglobin 12.7 g/dL (12.0-15.0); Lymphocyte # 1.35 X10^3/ul (0.83-4.51); Lymphocyte % 22.4 % (19-41); Mean Corp Hgb Conc 33.7 g/dL (32-36); Mean Corpuscular Hgb 31.2 pg (27.0-32.0); Mean Corpuscular Volume 92.6 fL (81-99); Mean Platelet Vol. 9.9 fl (6.2-12.0); Monocyte% 8.3 % (0-10); NRBC Flagged by Analyzer 0 % (0-5); Neutrophil # 4.07 X10^3/uL (2.7-7.7); Neutrophil % 67.3 % (47-70); Platelet Count 340 K/mm3 (150-450); RBC Distribution Width CV 12.8 % (11.6-14.6); RBC Distribution Width SD 43.2 fl (35.1-43.9); Red Blood Count 4.07 M/mm3 (4.2-5.4)
[2022-03-11 18:54] LABS: ALB/GLOB Ratio 1.3 RATIO (0.9-2.4); AST(SGOT) 17 U/L (15-37); Alanine Aminotransfer ALT/SGPT 28 U/L (13-56); Albumin, Serum 3.9 g/dL (3.2-5.0); Alkaline Phosphatase 33 U/L (45-117); Anion Gap 10 (5-15); BUN 25 mg/dL (7-18); BUN/Creat Ratio 25.3 RATIO (10-20); CRP < 2.90 mg/L (0.0-3.0); Chloride 106 mmol/L (98-107); Creatinine, Serum 0.99 mg/dL (0.55-1.02); EST Glomerular Filtration Rate 57 mL/min (>60); Est Glom Filt Rate - Afr Amer 68 mL/min (>60); GGTP 25 U/L (5-55); Globulin 3.1 g/dL (2.2-4.2); Glucose 114 mg/dL (74-106); Lipase 158 U/L (73-393); Magnesium 1.8 mg/dL (1.6-2.6); Potassium 3.3 mmol/L (3.5-5.1); Sodium Level 140 mmol/L (136-145); Thyroid Stim Hormone (TSH) 2.09 uIU/mL (0.358-3.74)
== END | disposition home or self-care (01) ==
LOC: MFPLAB 15:13
PROVIDERS: PCP Family Medicine; Visit Provider Family Medicine
DX: G25.0 Essential tremor (principal); R10.11 Right upper quadrant pain; E78.5 Hyperlipidemia, unspecified
CPT/HCPCS: 36415; 80053; 82977; 83690; 83735; 84443; 85025; 86140

== ENCOUNTER → 2022-03-14 | Outpatient (CLI) | payer MEDICARE, OTHER, SELFPAY ==
[2021-04-10 08:54] VITALS: BMI 29.0
--- NOTE | 2022-03-14 08:14 | US_ITS ---
STUDY: ABDOMINAL ULTRASOUND - RIGHT UPPER QUADRANT REASON FOR VISIT: Female, 86 years old . Intermittent bloating and right upper quadrant pain. TECHNIQUE: Ultrasound evaluation of the right upper quadrant was performed with real-time and static harman-scale imaging. TECHNICAL QUALITY: Adequate. COMPARISON: None. FINDINGS: Liver: The liver measures 15.9 cm. There is increased echogenicity consistent with fatty infiltration. Focal fatty sparing is seen in the region of the gallbladder fossa. The bile ducts are within normal limits. There is hepatic color flow. The direction of portal flow is hepatopetal. There is a 1.4 cm x 1.8 cm x 1.2 cm cyst in the anterior inferior aspect of the right lobe of the liver. Gallbladder: Normal distended gallbladder. The gallbladder wall measures 2.0 mm. There is a negative sonographic Starkey''s sign. There is no pericholecystic fluid. There are no gallstones. Common Bile Duct (C.B.D.): The common bile duct measures 4.5 mm. Pancreas: Normal size of the head, body and tail of the pancreas. There is normal echogenicity of the pancreas. There is no demonstrated pancreatic mass or cyst. Right Kidney: Normal size of the right kidney. The right kidney measures 11.8 cm x 5.9 cm x 4.7 cm. Normal renal cortex. The right cortex measures 1.5 cm. There is a 1.9 cm x 1.7 cm x 1.5 cm renal cyst. There is no right hydronephrosis. US/Abdomen Limited IMPRESSION: Fatty infiltration of the liver. 1.4 cm x 1.8 cm x 1.2 cm cyst in the inferior right lobe of the liver. Right renal cyst. Electronically Signed: Daljit Rubio MD at 10:31 EDT ,
== END | disposition home or self-care (01) ==
LOC: US 08:14
PROVIDERS: PCP Family Medicine; Referring Provider Family Medicine; Visit Provider Family Medicine
DX: R10.11 Right upper quadrant pain (principal)
CPT/HCPCS: 76705

== ENCOUNTER → 2022-03-31 | Outpatient (CLI) | payer MEDICARE, OTHER, SELFPAY ==
[2021-04-10 08:54] VITALS: BMI 29.0
--- NOTE | 2022-03-31 13:14 | CT_ITS ---
STUDY: CT ABDOMEN AND PELVIS WITH CONTRAST REASON FOR EXAM: Female, 86 years old. Diffuse abdominal pain RADIATION DOSAGE (If Supplied By Facility): CTDIvol = ( 16.51 ) mGy, DLP = ( 898.54 ) mGycm TECHNIQUE: Transaxial images were obtained from the dome of the diaphragm to the symphysis pubis without oral contrast. Oral and amp;amp; IV Readi-CAT and amp;amp; 100mL Isovue-300 was administered. Sagittal and coronal images were reconstructed. Individualized dose optimization techniques were used for this CT. COMPARISON: No recent CTs, ultrasound from 03/14/2022 FINDINGS: The visualized lung bases are unremarkable. The visualized portions of the heart are within normal limits. There is decreased attenuation of the liver consistent with steatosis. Normal gallbladder and extrahepatic biliary system. Normal spleen. Normal pancreas. Normal bilateral adrenal glands. No obstructive uropathy, simple right renal cyst. There is a punctate nonobstructing left renal stone. Normal visualized stomach. Normal small intestine. Normal colon. The appendix is visualized and appears normal. Appendix seen on coronal recon images 36 through 44 There is diffuse atherosclerotic calcification of the abdominal aorta, without a demonstrated aneurysm. Normal inferior vena cava. Normal retroperitoneum. Normal urinary bladder. There is a small umbilical hernia containing fat. There are diffuse degenerative changes of the visualized lumbar spine, and pelvis. Grade 1 spondylolisthesis noted at L4-5 CT/Abdomen/Pelvis WITH Contrast IMPRESSION: Fatty liver, no discrete lesion Simple right renal cyst, no specific follow-up needed. Nonobstructing left nephrolithiasis No free intraperitoneal fluid, air, or suspicious adenopathy, normal appendix visualized Electronically Signed: Joe Johns MD at 13:48 EDT ,
== END | disposition home or self-care (01) ==
LOC: CT 13:12
PROVIDERS: PCP Family Medicine; Referring Provider Family Medicine; Visit Provider Family Medicine
DX: R10.9 Unspecified abdominal pain (principal)
CPT/HCPCS: 74177; Q9967

== ENCOUNTER → 2022-11-04 | Outpatient (CLI) | payer MEDICARE, OTHER, SELFPAY ==
[2021-04-10 08:54] VITALS: BMI 29.0
[2022-11-04 12:35] LABS: Absolute Lymphocyte Count 0.93 X10^3/uL (0.83-4.51); Absolute Neutrophil Count 4.8 X10^3/uL (2.0-7.7); Basophil# 0.05 X10^3/uL; Basophil% 0.8 % (0-1); Eosinophil# 0.09 X10^3/uL; Eosinophils% 1.4 % (0-5); Hematocrit 37.8 % (37-47); Hemoglobin 12.1 g/dL (12.0-15.0); Lymphocyte # 0.93 X10^3/ul (0.83-4.51); Lymphocyte % 14.9 % (19-41); Mean Corpuscular Hgb 30.6 pg (27.0-32.0); Mean Corpuscular Volume 95.7 fL (81-99); Mean Platelet Vol. 9.7 fl (6.2-12.0); Monocyte# 0.37 X10^3/uL; Monocyte% 5.9 % (0-10); NRBC Flagged by Analyzer 0 % (0-5); Neutrophil # 4.79 X10^3/uL (2.7-7.7); Neutrophil % 76.5 % (47-70); Platelet Count 312 K/mm3 (150-450); RBC Distribution Width CV 13.3 % (11.6-14.6); RBC Distribution Width SD 46.9 fl (35.1-43.9); Red Blood Count 3.95 M/mm3 (4.2-5.4); White Blood Count 6.3 K/mm3 (4.4-11.0)
[2022-11-04 13:05] LABS: Vitamin B12 614 pg/mL (211-911)
[2022-11-04 13:51] LABS: ALB/GLOB Ratio 1.2 RATIO (0.9-2.4); AST(SGOT) 14 U/L (15-37); Alanine Aminotransfer ALT/SGPT 21 U/L (13-56); Albumin, Serum 3.5 g/dL (3.2-5.0); Alkaline Phosphatase 39 U/L (45-117); Anion Gap 8 (5-15); BUN 28 mg/dL (7-18); BUN/Creat Ratio 30.4 RATIO (10-20); Calcium,Total 9.4 mg/dL (8.5-10.1); Chloride 109 mmol/L (98-107); Creatinine, Serum 0.92 mg/dL (0.55-1.02); EST Glomerular Filtration Rate 61 mL/min (>60); Est Glom Filt Rate - Afr Amer 74 mL/min (>60); Glucose 212 mg/dL (74-106); Magnesium 1.8 mg/dL (1.6-2.6); Potassium 3.5 mmol/L (3.5-5.1); Protein, Total 6.5 g/dL (6.4-8.2); Sodium Level 140 mmol/L (136-145); Thyroid Stim Hormone (TSH) 1.84 uIU/mL (0.358-3.74)
[2022-11-04 15:31] LABS: Microalbumin:Creatinine Ratio 33.9 mg/g CRE (<30 mg/g CRE)
== END | disposition home or self-care (01) ==
LOC: MTLAB 09:57
PROVIDERS: PCP Family Medicine; Referring Provider Family Medicine; Visit Provider Family Medicine
DX: G25.0 Essential tremor (principal); I10 Essential (primary) hypertension; R53.83 Other fatigue; Z79.899 Other long term (current) drug therapy
CPT/HCPCS: 36415; 80053; 82043; 82570; 82607; 82746; 83735; 84443; 85025

== ENCOUNTER 2023-06-14 13:14 | Emergency (ER) | payer MEDICARE, OTHER, SELFPAY ==
[2021-04-10 08:54] VITALS: BMI 29.0
[2023-06-14] VITALS (8 sets, daily range): BP systolic 169–222; BP diastolic 60–107; PULSE 58; RESP 16; TEMP 35.9; O2SAT 98
--- NOTE | 2023-06-14 13:31 | CT_ITS ---
STUDY: CT Abdomen And Pelvis W/ Contrast Injection 06/14/2023 3:20 PM REASON FOR EXAM: Female, 87 years old. Abdominal pain RLQ abdominal pain Individualized dose optimization techniques were used for this CT. COMPARISON: 03.31.22. TECHNIQUE: CT Abdomen And Pelvis W/ Contrast Injection IV 100mL Isovue-370 FINDINGS: There are atherosclerotic calcifications of visualized coronary arteries. The visualized portions of the heart are within normal limits. Normal liver. Normal gallbladder and extrahepatic biliary system. Normal spleen. Normal pancreas. Normal bilateral adrenal glands. There are hypodensities in the right kidney. These are consistent for cysts. No follow up required. There are hypodensities in the left kidney. These are consistent for cysts. No follow up required. Normal visualized stomach. Normal small intestine. There are multiple colonic diverticula consistent with diverticulosis. The appendix is visualized and appears normal. There are calcifications of the abdominal aorta. This is consistent for atherosclerotic disease. There is NO abdominal aortic aneurysm. Vascular workup can be obtained based on clinical correlation. Normal inferior vena cava. Subcentimeter mesenteric lymph nodes. Normal urinary bladder. There is absence of the uterus consistent with a prior hysterectomy. There is an umbilical hernia containing some inflammation and fat. This can cause pain. There are diffuse degenerative changes of the visualized lumbar spine. There is bilateral neural foraminal stenosis at L4-5 and L5-S1. CT/Abdomen/Pelvis W IV Cont ONLY IMPRESSION: (NOT LISTED IN ORDER OF SIGNIFICANCE) There is an umbilical hernia containing some inflammation and fat. This can cause pain. Hysterectomy The appendix is visualized and is normal. Other findings as above. Electronically Signed: Sukh Dial MD at 15:23 EST ,
--- NOTE | 2023-06-14 13:31 | ED.VIS.GI ---
HPI <HORTENCIA Owen - Last Filed: 06/14/23 19:55> HPI - GI History of Present Illness Chief Complaint: Abd Pain Narrative Narrative: Patient presenting today with pain across her lower abdomen that she has had intermittently over the past year. She reports that this morning her pain worsened and seems to be more prominent in her right lower quadrant. The pain is intermittent, she reports that it seems to have gotten better now that she is here in the ED. She denies any history of abdominal surgery. She reports a history of a umbilical hernia. She has been a little constipated over the past few days and is passing harder stools, she last passed stool this morning and reports that she has been passing a lot of gas. She denies any fever, chills, nausea, vomiting, diarrhea, and melena/hematochezia. [facility] <HORTENCIA Owen - Last Filed: 06/14/23 19:55> [facility] Medical History Aortic valve calcification Atherosclerotic heart disease of [place] coronary artery with other forms of angina pectoris Benign essential hypertension Chilaiditi's syndrome Degenerative disc disease, cervical Depression Essential tremor GERD (gastroesophageal reflux disease) History of pulmonary embolus (PE) (2010) Hyperlipidemia Iliotibial band syndrome, left leg Lymphedema Segmental and somatic dysfunction of cervical region Segmental and somatic dysfunction of thoracic region Spinal stenosis at L4-L5 level Home Medications aspirin 81 mg tablet,delayed release (Adult Low Dose Aspirin) 81 mg PO DAILY heart health 12/06/20 [History Last Taken 12/26/20] fenofibrate nanocrystallized 145 mg tablet 145 mg PO DAILY triglycerides 12/06/20 [History Last Taken Unknown] potassium chloride 10 mEq capsule,extended release 10 meq PO DAILY supplement 12/06/20 [History Last Taken 12/11/20] vitamin B complex 1 tab PO DAILY vitamin 12/06/20 [History Last Taken Unknown] ascorbic acid (vitamin C) 500 mg tablet (Vitamin C) 500 mg PO DAILY 04/13/21 [History Last Taken Unknown] cholecalciferol (vitamin D3) 25 mcg (1,000 unit) capsule (Vitamin D3) 25 mcg PO DAILY 04/13/21 [History Last Taken Unknown] hydrochlorothiazide 25 mg tablet 25 mg PO DAILY 10/16/21 [History Last Taken Unknown] losartan 100 mg tablet 100 mg PO QHS 04/13/21 [History Last Taken Unknown] coenzyme Q10 100 mg capsule (CoQ-10) 100 mg PO DAILY 06/10/22 [History Last Taken Unknown] paroxetine HCl 10 mg tablet (Paxil) 10 mg PO QHS 06/10/22 [History Last Taken Unknown] paroxetine HCl 20 mg tablet 20 mg PO DAILY 06/10/22 [History Last Taken Unknown] atorvastatin 20 mg tablet (Lipitor) 20 mg PO QHS #90 tabs 08/22/22 [Rx Last Taken Unknown] amlodipine 5 mg tablet 5 mg PO DAILY #30 tabs 02/04/23 [Rx Last Taken Unknown] carvedilol 12.5 mg tablet 12.5 mg PO BID #180 tabs 02/04/23 [Rx Last Taken Unknown] hydrocodone-acetaminophen 5-325mg 5mg-325mg 1 tab PO Q6H PRN PRN Pain 3 days #10 TABLETS 06/14/23 [Rx Last Taken Unknown] Allergy/AdvReac Type Severity Reaction Status Date / Time naproxen [From Aleve] AdvReac Itching Verified 06/14/23 13:16 Family History Grandfather Ward's disease Father CAD (coronary artery disease) Sister CAD (coronary artery disease) Hypertension Gout Mother Hypertension CHF (congestive heart failure) Grandfather Cancer Prostate Grandmother CVA (cerebral vascular accident) Daughter Factor V Leiden Surgical History History of arthroscopy of left knee History of bilateral cataract extraction History of coronary artery stent placement (12/26/20) History of hemorrhoidectomy History of hysterectomy History of repair of rectocele History of tonsillectomy Social History Smoking Status: Never smoker alcohol intake: current details: Occasionally substance use type: does not use ROS <HORTENCIA Owen - Last Filed: 06/14/23 19:55> ROS ED Constitutional Constitutional ED: Denies chills or fever(s) Cardiovascular Cardiovascular: Denies chest pain Respiratory/Chest Respiratory/Chest: Denies cough or dyspnea Gastrointestinal Gastrointestinal: Reports abdominal pain and constipation; Denies diarrhea, melena, nausea or vomiting Genitourinary Genitourinary ED: Denies dysuria, hematuria or urinary urgency Musculoskeletal Musculoskeletal: Denies arthralgias or myalgias Integumentary Denies rash Neurologic Neurologic: Denies weakness EXAM <HORTENCIA Owen - Last Filed: 06/14/23 19:55> Physical Exam Const Vital Signs: 06/14/23 13:16 06/14/23 16:11 06/14/23 16:15 Temperature 96.7 F L Temperature Source Temporal Pulse Rate 58 L Respiratory Rate 16 Blood Pressure 222/107 H 198/78 H 214/79 H Blood Pressure Mean 145 118 124 Pulse Ox 98 Oxygen Delivery Method Room Air 06/14/23 16:30 06/14/23 16:45 06/14/23 17:00 Temperature Temperature Source Pulse Rate Respiratory Rate Blood Pressure 192/70 H 191/71 H 203/68 H Blood Pressure Mean 110 111 113 Pulse Ox Oxygen Delivery Method 06/14/23 17:15 06/14/23 17:51 Temperature Temperature Source Pulse Rate Respiratory Rate Blood Pressure 174/71 H 169/60 H Blood Pressure Mean 105 96 Pulse Ox Oxygen Delivery Method Positive well nourished, well developed and no apparent distress General Appearance ED: well developed HEENT Reports normocephalic and head/scalp atraumatic Mouth ED: Yes moist mucous membranes normal Eyes PERRL and EOMs intact bilaterally Neck full ROM and supple Chest Wall inspection of chest normal Resp normal respiratory effort and clear to auscultation bilaterally Cardio regular rate and regular rhythm GI soft to palpation, non-distended and no masses GI Narrative: Minimal tenderness to palpation to the right lower quadrant without any rigidity, guarding, or peritoneal signs. Back/Spine normal ROM and normal to inspection Extremity normal to inspection and full ROM Neuro oriented x3, CN's II-XII intact bilaterally, moves all extremities, no focal motor deficits and no sensory deficits noted Sensorium / Orientation: awake and alert Psych mental status grossly normal and thought process normal Skin no rashes or lesions noted and no wounds <Dr. Johnnie Rodriguez DO - Last Filed: 06/14/23 17:08> Physical Exam Const Vital Signs: 06/14/23 13:16 06/14/23 16:11 06/14/23 16:15 Temperature 96.7 F L Temperature Source Temporal Pulse Rate 58 L Respiratory Rate 16 Blood Pressure 222/107 H 198/78 H 214/79 H Blood Pressure Mean 145 118 124 Pulse Ox 98 Oxygen Delivery Method Room Air 06/14/23 16:30 06/14/23 16:45 06/14/23 17:00 Temperature Temperature Source Pulse Rate Respiratory Rate Blood Pressure 192/70 H 191/71 H 203/68 H Blood Pressure Mean 110 111 113 Pulse Ox Oxygen Delivery Method 06/14/23 17:15 06/14/23 17:51 Temperature Temperature Source Pulse Rate Respiratory Rate Blood Pressure 174/71 H 169/60 H Blood Pressure Mean 105 96 Pulse Ox Oxygen Delivery Method [facility] <HORTENCIA Owen - Last Filed: 06/14/23 19:55> [facility] Narrative Medical decision making narrative: Patient presenting with lower abdominal pain that is worse on the right side, she has had this intermittently over the past year, and worsened this morning. She did have this evaluated by her PCP about a year ago and they did a CT scan at that time. She is well-appearing and in no acute distress. She is hypertensive, she reports she did take her blood pressure medication today, this will be rechecked. Labs to be obtained to rule out leukocytosis, anemia, electrolyte abnormality, JOCELIN, hepatobiliary etiology, and UTI. CT of the abdomen and pelvis will be obtained to rule out appendicitis, diverticulitis, cholecystitis, mass, bowel obstruction, and other abdominal etiology. CBC overall is unremarkable, CMP shows slightly elevated BUN. CT of the abdomen and pelvis shows an umbilical hernia that contains fat and inflammation. No other acute process. This was discussed with on-call general surgeon, patient will follow-up with him in the office. Patient did have elevated blood pressure at 222/107, she is asymptomatic with this blood pressure, she did require 2 doses of hydralazine and her blood pressure did come down to 169/60. I did speak with Dr. Muniz, who was on-call for her PCP, Dr. Cowart, he recommends that patient follow-up in the office and to have them call in the morning to make an appointment as she may need medication adjustments. Patient is comfortable being discharged home, I have encouraged her to keep track of her blood pressure, she has been given return instructions and will be discharged home in stable condition. She is comfortable with plan. I have personally performed a face to face assessment of the patient and have reviewed the AQUILES Note. I performed a substantive portion of the visit including all aspects of the following. My cazares findings include: History is [patient presents with intermittent abdominal pain that she has had over the last year off-and-on. She has history of an umbilical hernia that at times she states it was painful and firm to the touch. She was having more pain and discomfort today especially to the right lower quadrant. She denies nausea or vomiting. She denies urinary symptoms.] Exam is [HEENT-PERRLA, EOMI. Cranial nerves II through XII grossly intact. TMs clear. Mucous membranes moist. No adenopathy. Cardiovascular-regular rate and rhythm without murmur or ectopy Lungs-clear to auscultation, chest wall stable without crepitus or subcu emphysema Abdomen-normoactive bowel sounds, soft. Patient has some mild tenderness of right lower quadrant with some guarding. Mild tenderness over the suprapubic region. There is no rebound, rigidity, or peritoneal signs. She does have a small umbilical hernia that is slightly tender to palpation. Extremities-intact ?4, normal range of motion, normal pulses, atraumatic] Medical Decison Making [lab workup unremarkable. Lactate was normal. Urinalysis positive for nitrites but no other signs of infection. I did send off a culture. Patient not having urinary symptoms therefore will not treat at this time. CT scan of the abdomen pelvis shows a small umbilical hernia containing fat with some inflammatory changes which may be the source of her pain. This point discussed case with patient and she is feeling markedly improved. Also discussed case with general surgeon on-call Dr. Aviles who asked that she follow-up with his office. Patient advised to return if worsening pain, fever, vomiting, or condition worsening way. Patient did have elevated blood pressure here we will give her a dose of hydralazine 10 mg IV.] After hydralazine patient continues to be elevated with systolic over 200. Will give her another dose of hydralazine. If unable to control her blood pressure may need admission. Case will be turned over to evening physician. Other additions or changes: [None] Lab Data Attestation: I reviewed the patient's lab results. Lab results narrative: BUN 25 Labs: Laboratory Results - last 24 hr 06/14/23 06/14/23 14:00 15:31 WBC 6.1 RBC 3.95 L Hgb 12.4 Hct 38.2 MCV 96.7 MCH 31.4 MCHC 32.5 RDW Std Deviation 45.7 H RDW Coeff of Shae 12.8 Plt Count 275 MPV 9.7 Immature Gran % (Auto) 0.300 Neut % (Auto) 65.9 Lymph % (Auto) 22.9 [place] % (Auto) 8.1 Eos % (Auto) 1.6 Baso % (Auto) 1.2 H Absolute Neuts (auto) 4.0 Absolute Lymphs (auto) 1.39 Nucleated RBC % 0 Sodium 140 Potassium 3.6 Chloride 109 H Carbon Dioxide 27.0 Anion Gap 4 L BUN 25 H Creatinine 0.77 Est GFR (MDRD) Af Amer 91 Est GFR (MDRD) Non-Af 75 BUN/Creatinine Ratio 32.4 H Glucose 80 Lactic Acid 1.2 Calcium 10.2 H Total Bilirubin 0.60 AST 14 L ALT 17 Alkaline Phosphatase 33 L Total Protein 6.5 Albumin 3.7 Globulin 2.8 Albumin/Globulin Ratio 1.3 Lipase 63 Urine Color Yellow Urine Clarity Sl. Cloudy Urine pH 8.0 Ur Specific Warren 1.010 Urine Protein 15 H Urine Glucose (UA) Normal Urine Ketones Negative Urine Occult Blood Negative Urine Nitrite Positive H Urine Bilirubin Negative Urine Urobilinogen Normal Ur Leukocyte Esterase 25 H Urine RBC 0-5 SEEN Urine WBC 0-5 SEEN Ur Squamous Epith Cells 0-5 SEEN Urine Bacteria 1+ Urine Mucus 0 SEEN Radiography Diagnostic Testing: Clinical Impression(s) from Imaging Studies Abdomen/Pelvis CT 06/14/23 13:31 IMPRESSION: (NOT LISTED IN ORDER OF SIGNIFICANCE) There is an umbilical hernia containing some inflammation and fat. This can cause pain. Hysterectomy The appendix is visualized and is normal. Other findings as above. Electronically Signed: Sukh Dial MD at 15:23 EST , <Dr. Johnnie Rodriguez, DO - Last Filed: 06/14/23 17:08> [facility] Narrative Medical decision making narrative: Patient presenting with lower abdominal pain that is worse on the right side, she has had this intermittently over the past year, and worsened this morning. She did have this evaluated by her PCP about a year ago and they did a CT scan at that time. She is well-appearing and in no acute distress. She is hypertensive, she reports she did take her blood pressure medication today, this will be rechecked. Labs to be obtained to rule out leukocytosis, anemia, electrolyte abnormality, JOCELNI, hepatobiliary etiology, and UTI. CT of the abdomen and pelvis will be obtained to rule out appendicitis, diverticulitis, cholecystitis, mass, bowel obstruction, and other abdominal etiology. CBC overall is unremarkable, CMP shows slightly elevated BUN. I have personally performed a face to face assessment of the patient and have reviewed the AQUILES Note. I performed a substantive portion of the visit including all aspects of the following. My cazares findings include: History is [patient presents with intermittent abdominal pain that she has had over the last year off-and-on. She has history of an umbilical hernia that at times she states it was painful and firm to the touch. She was having more pain and discomfort today especially to the right lower quadrant. She denies nausea or vomiting. She denies urinary symptoms.] Exam is [HEENT-PERRLA, EOMI. Cranial nerves II through XII grossly intact. TMs clear. Mucous membranes moist. No adenopathy. Cardiovascular-regular rate and rhythm without murmur or ectopy Lungs-clear to auscultation, chest wall stable without crepitus or subcu emphysema Abdomen-normoactive bowel sounds, soft. Patient has some mild tenderness of right lower quadrant with some guarding. Mild tenderness over the suprapubic region. There is no rebound, rigidity, or peritoneal signs. She does have a small umbilical hernia that is slightly tender to palpation. Extremities-intact ?4, normal range of motion, normal pulses, atraumatic] Medical Decison Making [lab workup unremarkable. Lactate was normal. Urinalysis positive for nitrites but no other signs of infection. I did send off a culture. Patient not having urinary symptoms therefore will not treat at this time. CT scan of the abdomen pelvis shows a small umbilical hernia containing fat with some inflammatory changes which may be the source of her pain. This point discussed case with patient and she is feeling markedly improved. Also discussed case with general surgeon on-call Dr. Aviles who asked that she follow-up with his office. Patient advised to return if worsening pain, fever, vomiting, or condition worsening way. Patient did have elevated blood pressure here we will give her a dose of hydralazine 10 mg IV.] After hydralazine patient continues to be elevated with systolic over 200. Will give her another dose of hydralazine. If unable to control her blood pressure may need admission. Case will be turned over to evening physician. Other additions or changes: [None] Lab Data Labs: Laboratory Results - last 24 hr 06/14/23 06/14/23 14:00 15:31 WBC 6.1 RBC 3.95 L Hgb 12.4 Hct 38.2 MCV 96.7 MCH 31.4 MCHC 32.5 RDW Std Deviation 45.7 H RDW Coeff of Shae 12.8 Plt Count 275 MPV 9.7 Immature Gran % (Auto) 0.300 Neut % (Auto) 65.9 Lymph % (Auto) 22.9 [place] % (Auto) 8.1 Eos % (Auto) 1.6 Baso % (Auto) 1.2 H Absolute Neuts (auto) 4.0 Absolute Lymphs (auto) 1.39 Nucleated RBC % 0 Sodium 140 Potassium 3.6 Chloride 109 H Carbon Dioxide 27.0 Anion Gap 4 L BUN 25 H Creatinine 0.77 Est GFR (MDRD) Af Amer 91 Est GFR (MDRD) Non-Af 75 BUN/Creatinine Ratio 32.4 H Glucose 80 Lactic Acid 1.2 Calcium 10.2 H Total Bilirubin 0.60 AST 14 L ALT 17 Alkaline Phosphatase 33 L Total Protein 6.5 Albumin 3.7 Globulin 2.8 Albumin/Globulin Ratio 1.3 Lipase 63 Urine Color Yellow Urine Clarity Sl. Cloudy Urine pH 8.0 Ur Specific [place] 1.010 Urine Protein 15 H Urine Glucose (UA) Normal Urine Ketones Negative Urine Occult Blood Negative Urine Nitrite Positive H Urine Bilirubin Negative Urine Urobilinogen Normal Ur Leukocyte Esterase 25 H Urine RBC 0-5 SEEN Urine WBC 0-5 SEEN Ur Squamous Epith Cells 0-5 SEEN Urine Bacteria 1+ Urine Mucus 0 SEEN Radiography Diagnostic Testing: Clinical Impression(s) from Imaging Studies Abdomen/Pelvis CT 06/14/23 13:31 IMPRESSION: (NOT LISTED IN ORDER OF SIGNIFICANCE) There is an umbilical hernia containing some inflammation and fat. This can cause pain. Hysterectomy The appendix is visualized and is normal. Other findings as above. Electronically Signed: Sukh Dial MD at 15:23 EST Reading Location ID and State: [facility] / [place] , Service support , Discharge Plan Triage Chief Complaint: Abd Pain ED Midlevel Provider: Melissa Rankin ED Provider: Johnnie Rodriguez Dx/Rx/DC Orders Clinical Impression: Hernia, umbilical, Chronic abdominal pain, Hypertension Instructions: Abdominal Pain, ED Hernia (Adult) Prescriptions: New hydrocodone-acetaminophen 5-325 mg tablet 1 tab PO Q6H PRN PRN (Reason: Pain) 3 Days Qty: 10 0RF No Action fenofibrate nanocrystallized 145 mg tablet 145 mg PO DAILY Patient Comments: TAKE ONE TABLET BY MOUTH EVERY DAY potassium chloride 10 mEq capsule, extended release 10 meq PO DAILY vitamin B complex Tablet 1 tab PO DAILY aspirin [Adult Low Dose Aspirin] 81 mg tablet,delayed release (DR/EC) 81 mg PO DAILY paroxetine HCl [Paxil] 10 mg tablet 10 mg PO QHS paroxetine HCl 20 mg tablet 20 mg PO DAILY coenzyme Q10 [CoQ-10] 100 mg capsule 100 mg PO DAILY hydrochlorothiazide 25 mg tablet 25 mg PO DAILY losartan 100 mg tablet 100 mg PO QHS ascorbic acid (vitamin C) [Vitamin C] 500 mg Tablet 500 mg PO DAILY cholecalciferol (vitamin D3) [Vitamin D3] 25 mcg (1,000 unit) Capsule 25 mcg PO DAILY atorvastatin [Lipitor] 20 mg tablet 20 mg PO QHS Qty: 90 3RF amlodipine 5 mg tablet 5 mg PO DAILY Qty: 30 11RF carvedilol 12.5 mg tablet 12.5 mg PO BID Qty: 180 3RF Rx Instructions: must administer with a meal/food Primary Care Provider: Patrick Cowart Referrals: Jordan Aviles MD [Med Staff - Active Staff] - 1 Week Patrick Cowart MD [Primary Care Provider] - Activity Restrictions/Additional Instructions: Follow up with Dr. Aviles, return for worsening of your symptoms. Disposition Disposition: Home, Self Care Discharge Date/Time: 06/14/23 17:52
[2023-06-14 14:08] LABS: Absolute Lymphocyte Count 1.39 X10^3/uL (0.83-4.51); Basophil# 0.07 X10^3/uL; Basophil% 1.2 % (0-1); Eosinophils% 1.6 % (0-5); Hematocrit 38.2 % (37-47); Hemoglobin 12.4 g/dL (12.0-15.0); Lymphocyte # 1.39 X10^3/ul (0.83-4.51); Lymphocyte % 22.9 % (19-41); Mean Corp Hgb Conc 32.5 g/dL (32-36); Mean Corpuscular Hgb 31.4 pg (27.0-32.0); Mean Corpuscular Volume 96.7 fL (81-99); Mean Platelet Vol. 9.7 fl (6.2-12.0); Monocyte# 0.49 X10^3/uL; Monocyte% 8.1 % (0-10); NRBC Flagged by Analyzer 0 % (0-5); Neutrophil % 65.9 % (47-70); Platelet Count 275 K/mm3 (150-450); RBC Distribution Width CV 12.8 % (11.6-14.6); RBC Distribution Width SD 45.7 fl (35.1-43.9); Red Blood Count 3.95 M/mm3 (4.2-5.4); White Blood Count 6.1 K/mm3 (4.4-11.0)
[2023-06-14 14:31] LABS: ALB/GLOB Ratio 1.3 RATIO (0.9-2.4); AST(SGOT) 14 U/L (15-37); Alanine Aminotransfer ALT/SGPT 17 U/L (13-56); Albumin, Serum 3.7 g/dL (3.2-5.0); Alkaline Phosphatase 33 U/L (45-117); Anion Gap 4 (5-15); BUN 25 mg/dL (7-18); BUN/Creat Ratio 32.4 RATIO (10-20); Calcium,Total 10.2 mg/dL (8.5-10.1); Chloride 109 mmol/L (98-107); Creatinine, Serum 0.77 mg/dL (0.55-1.02); EST Glomerular Filtration Rate 75 mL/min (>60); Est Glom Filt Rate - Afr Amer 91 mL/min (>60); Globulin 2.8 g/dL (2.2-4.2); Glucose 80 mg/dL (74-106); Lactic Acid 1.2 mmol/L (0.4-1.9); Lipase 63 U/L (13-75); Potassium 3.6 mmol/L (3.5-5.1); Protein, Total 6.5 g/dL (6.4-8.2); Sodium Level 140 mmol/L (136-145)
[2023-06-14 15:36] LABS: Mucous, Urine 0 SEEN /hpf (<or=2+)
[2023-06-14 15:42] LABS: Color, Urine Yellow (Yellow); Glucose, Dipstick Normal (Normal); Ketone-Dipstick Negative (Negative); Leukocyte Esterase-Dipstick 25 /ul (Negative); Nitrite-Dipstick Positive (Negative); Occult Blood-Urine Negative /ul (Negative); Protein-Dipstick 15 mg/dl (Negative); Urine Bilirubin Dipstick Negative (Negative); Urine Clarity Sl. Cloudy (Clear); Urine Urobilinogen Normal (Normal)
[2023-06-14 15:55] LABS: White Blood Cells 0-5 SEEN /hpf (0-5)
[2023-06-14 15:56] LABS: Bacteria 1+ /hpf (None Seen); Red Blood Cells-Urine 0-5 SEEN /hpf (0-5); Squamous Epithelial Cells - UA 0-5 SEEN /hpf (5-10)
[2023-06-14] MEDS: hydrALAZINE 20 MG/ML Vial 10 MG IV ×2 (16:22→17:07)
[2023-06-14] MEDS: Acetaminophen 325 MG Tablet 650 MG PO (17:03)
== END 2023-06-14 17:52 | disposition home or self-care (01) ==
PROVIDERS: Physician Assistant; Emergency Provider Emergency Medicine; PCP Family Medicine; Visit Provider Emergency Medicine
DX: K42.9 Umbilical hernia without obstruction or gangrene (principal); R10.30 Lower abdominal pain, unspecified; G89.29 Other chronic pain; I10 Essential (primary) hypertension; I25.10 Atherosclerotic heart disease of native coronary artery without angina pectoris; E78.5 Hyperlipidemia, unspecified; Z79.899 Other long term (current) drug therapy; Z86.711 Personal history of pulmonary embolism; Z95.5 Presence of coronary angioplasty implant and graft
CPT/HCPCS: 74177; 80053; 81001; 83605; 83690; 85025; 87077; 87086; 87088; 87186; 96374; 96376; 99283; Q9967; A4216

== ENCOUNTER → 2023-07-14 | Outpatient (CLI) | payer MEDICARE, OTHER, SELFPAY ==
[2021-04-10 08:54] VITALS: BMI 29.0
[2023-07-14 17:30] LABS: Absolute Neutrophil Count 3.5 X10^3/uL (2.0-7.7); Basophil# 0.02 X10^3/uL; Basophil% 0.3 % (0-1); Eosinophil# 0.05 X10^3/uL; Eosinophils% 0.8 % (0-5); Hematocrit 37.3 % (37-47); Hemoglobin 12.4 g/dL (12.0-15.0); Lymphocyte % 30.4 % (19-41); Mean Corp Hgb Conc 33.2 g/dL (32-36); Mean Corpuscular Volume 93.3 fL (81-99); Mean Platelet Vol. 9.8 fl (6.2-12.0); Monocyte# 0.48 X10^3/uL; Monocyte% 8.1 % (0-10); NRBC Flagged by Analyzer 0 % (0-5); Neutrophil # 3.54 X10^3/uL (2.7-7.7); Neutrophil % 59.9 % (47-70); Platelet Count 288 K/mm3 (150-450); RBC Distribution Width CV 12.5 % (11.6-14.6); White Blood Count 5.9 K/mm3 (4.4-11.0)
[2023-07-14 17:49] LABS: ALB/GLOB Ratio 1.2 RATIO (0.9-2.4); AST(SGOT) 23 U/L (15-37); Alanine Aminotransfer ALT/SGPT 20 U/L (13-56); Albumin, Serum 3.5 g/dL (3.2-5.0); Alkaline Phosphatase 36 U/L (45-117); Anion Gap 8 (5-15); BUN 29 mg/dL (7-18); BUN/Creat Ratio 33.7 RATIO (10-20); Calcium,Total 9.7 mg/dL (8.5-10.1); Chloride 109 mmol/L (98-107); Creatinine, Serum 0.86 mg/dL (0.55-1.02); EST Glomerular Filtration Rate 66 mL/min (>60); Est Glom Filt Rate - Afr Amer 80 mL/min (>60); Globulin 2.9 g/dL (2.2-4.2); Glucose 108 mg/dL (74-106); Magnesium 1.9 mg/dL (1.6-2.6); Potassium 3.4 mmol/L (3.5-5.1); Protein, Total 6.4 g/dL (6.4-8.2); Sodium Level 139 mmol/L (136-145); T4 Free Direct 1.49 ng/dL (0.76-1.46); Thyroid Stim Hormone (TSH) 2.06 uIU/mL (0.358-3.74)
== END | disposition home or self-care (01) ==
PROVIDERS: PCP Family Medicine; Referring Provider Family Medicine; Visit Provider Family Medicine
DX: K42.9 Umbilical hernia without obstruction or gangrene (principal); E83.52 Hypercalcemia
CPT/HCPCS: 36415; 80053; 83735; 84439; 84443; 85025

== ENCOUNTER → 2023-08-13 | Outpatient (CLI) | payer MEDICARE, OTHER, SELFPAY ==
[2021-04-10 08:54] VITALS: BMI 29.0
== END | disposition home or self-care (01) ==
LOC: MFPLAB 13:32
PROVIDERS: PCP Family Medicine; Visit Provider Family Medicine
DX: R30.0 Dysuria (principal)
CPT/HCPCS: 87077; 87086; 87088; 87186

== ENCOUNTER 2023-12-03 18:16 | Emergency (ER) | payer MEDICARE, OTHER, SELFPAY ==
[2021-04-10 08:54] VITALS: BMI 29.0
[2023-12-03 18:16] VITALS: BP 241/95; PULSE 66; RESP 14; TEMP 36.1; O2SAT 98
--- NOTE | 2023-12-03 18:31 | CT_ITS ---
STUDY: CT ABDOMEN AND PELVIS WITH CONTRAST REASON FOR EXAM: Female, 88 years old. Umbilical hernia pain RADIATION DOSAGE (If Supplied By Facility): CTDIvol = ( 16.48 ) mGy, DLP = ( 759.04 ) mGycm TECHNIQUE: Transaxial images were obtained from the dome of the diaphragm to the symphysis pubis without oral contrast. IV 100mL Isovue-[id number] was administered. Sagittal and coronal images were reconstructed. Individualized dose optimization techniques were used for this CT. COMPARISON: None. FINDINGS: The visualized lung bases are unremarkable. The visualized portions of the heart are within normal limits. Normal liver. Normal gallbladder and extrahepatic biliary system. Normal spleen. Normal pancreas. Normal bilateral adrenal glands. Up to 1.2 cm cysts in the right kidney. 2 mm stone in the left kidney. Normal visualized stomach. Normal small intestine. Normal colon. The appendix is visualized and appears normal. Calcified abdominal aorta. Normal inferior vena cava. Normal retroperitoneum. There is minimal gas in the urinary bladder. There is a 3.3 cm fatty umbilical hernia. Normal osseous structures. CT/Abdomen/Pelvis W IV Cont ONLY IMPRESSION: Right renal cysts. Nonobstructing left renal stone. Minimal gas in the urinary bladder. Infectious etiology cannot be excluded Fatty umbilical hernia. Electronically Signed: Ethan Acevedo DO at 20:13 EDT ,
--- NOTE | 2023-12-03 18:37 | EDS_ITS ---
HPI History of Present Illness Chief Complaint: Abd Pain Informant: patient Onset/Context/Timing Onset: Today Narrative Narrative: Patient presents secondary to severe abdominal pain that started about an hour prior to arrival. She is a history of an umbilical hernia states she will get flares of sudden severe pain. When this happens her blood pressure goes quite high. She states about an hour ago this occurred and she has not been able to get comfortable since. She did have a bowel movement this morning. She was last seen here in the emergency room for this in May. She was to follow up with Dr. Aviles but due to a in the family her appointments have been pushed back and she is now scheduled to see him in 3 weeks. [facility] Medical History Atherosclerotic heart disease of [place] coronary artery with other forms of angina pectoris History of pulmonary embolus (PE) (2010) Aortic valve calcification Lymphedema Spinal stenosis at L4-L5 level Essential tremor Iliotibial band syndrome, left leg GERD (gastroesophageal reflux disease) Chilaiditi's syndrome Depression Degenerative disc disease, cervical Segmental and somatic dysfunction of thoracic region Segmental and somatic dysfunction of cervical region Hyperlipidemia Benign essential hypertension Home Medications ?Medication ?Instructions ?Recorded ?Last Taken ?Type aspirin 81 mg tablet,delayed 81 mg PO DAILY heart health 12/06/20 12/26/20 History release (Adult Low Dose Aspirin) fenofibrate nanocrystallized 145 145 mg PO DAILY triglycerides 12/06/20 Unknown History mg tablet potassium chloride 10 mEq 10 meq PO DAILY supplement 12/06/20 12/11/20 History capsule,extended release vitamin B complex 1 tab PO DAILY vitamin 12/06/20 Unknown History ascorbic acid (vitamin C) 500 mg 500 mg PO DAILY 04/13/21 Unknown History tablet (Vitamin C) cholecalciferol (vitamin D3) 25 25 mcg PO DAILY 04/13/21 Unknown History mcg (1,000 unit) capsule (Vitamin D3) hydrochlorothiazide 25 mg tablet 25 mg PO DAILY 04/13/21 Unknown History losartan 100 mg tablet 100 mg PO QHS 04/13/21 Unknown History coenzyme Q10 100 mg capsule 100 mg PO DAILY 06/10/22 Unknown History (CoQ-10) paroxetine HCl 10 mg tablet (Paxil) 10 mg PO QHS 06/10/22 Unknown History hydrocodone-acetaminophen 5-325mg 1 tab PO Q6H PRN PRN Pain 3 days 06/14/23 Unknown Rx 5mg-325mg #10 TABLETS atorvastatin 20 mg tablet (Lipitor) 20 mg PO QHS #90 tabs 09/03/23 Unknown Rx carvedilol 12.5 mg tablet See Rx Instructions PO BID 10/13/23 Unknown History Allergy/AdvReac Type Severity Reaction Status Date / Time naproxen (From Aleve) AdvReac Itching Verified 12/03/23 18:17 Family History Grandfather Ward's disease Father CAD (coronary artery disease) Sister CAD (coronary artery disease) Hypertension Gout Mother Hypertension CHF (congestive heart failure) Grandfather Cancer Prostate Grandmother CVA (cerebral vascular accident) Daughter Factor V Leiden Surgical History History of coronary artery stent placement (12/26/20) History of repair of rectocele History of hysterectomy History of hemorrhoidectomy History of arthroscopy of left knee History of bilateral cataract extraction History of tonsillectomy Social History Smoking Status: Never smoker alcohol intake: current details: Occasionally substance use type: does not use ROS ROS ED Constitutional Constitutional ED: Denies chills or fever(s) ENT ENT ED: Denies rhinorrhea or sore throat Cardiovascular Cardiovascular: Denies chest pain or palpitations Respiratory/Chest Respiratory/Chest: Denies cough or dyspnea Gastrointestinal Gastrointestinal: Reports abdominal pain; Denies diarrhea, nausea or vomiting Musculoskeletal Musculoskeletal: Denies back pain or extremity pain Integumentary Denies Abrasions or rash Neurologic Neurologic: Denies headache(s) or weakness Psychiatric Psychiatric: Denies anxiety or depression Allergic/Immunologic Allergic/Immunologic ED: Denies lip swelling or urticaria EXAM Physical Exam Const Vital Signs: 12/03/23 18:16 12/03/23 18:54 Temperature 97 F L Temperature Source Temporal Pulse Rate 66 Respiratory Rate 14 Blood Pressure 241/95 H 196/66 H Blood Pressure Mean 143 109 Pulse Ox 98 Oxygen Delivery Method Room Air Positive well nourished and well developed General Appearance ED: well developed HEENT Reports moist mucous membranes Eyes EOMs intact bilaterally Chest Wall inspection of chest normal and palpation of chest normal Resp normal respiratory effort and clear to auscultation bilaterally Cardio regular rate and regular rhythm GI GI Narrative: Abdomen soft with periumbilical tenderness palpation. No obvious palpable umbilical hernia at this time. Active bowel sounds are noted. Extremity normal to inspection Neuro oriented x3 and no sensory deficits noted Motor Exam: strength 5/5 throughout Psych Mood & Affect: anxious Skin no rashes or lesions noted MDM MDM MDM Narrative Medical decision making narrative: Patient placed on registered nurse cardiac. Blood pressure significantly elevated at 241 systolic. Patient had similar blood pressure readings with her last evaluation for similar. She will be given morphine and Zofran for pain and nausea. Labwork obtained to evaluate for leukocytosis, anemia, and electrolyte derangement. CT scan of the abdomen pelvis to be obtained to evaluate for incarcerated umbilical hernia. History & Record Review Discussion w/independent historian: Patient and Family Additional record(s) reviewed:: Prior ED visit and Prior labs Lab Data Attestation: I reviewed the patient's lab results. Labs: Laboratory Results - last 24 hr 12/03/23 18:40 WBC 5.0 RBC 3.95 L Hgb 12.5 Hct 36.6 L MCV 92.7 MCH 31.6 MCHC 34.2 RDW Std Deviation 43.4 RDW Coeff of Shae 12.6 Plt Count 283 MPV 9.8 Immature Gran % (Auto) 0.400 Neut % (Auto) 60.3 Lymph % (Auto) 27.9 Hand % (Auto) 8.2 Eos % (Auto) 2.2 Baso % (Auto) 1.0 Absolute Neuts (auto) 3.0 Absolute Lymphs (auto) 1.39 Nucleated RBC % 0 Sodium 140 Potassium 3.9 Chloride 109 H Carbon Dioxide 25.0 Anion Gap 6 BUN 43 H Creatinine 1.18 H Est GFR (MDRD) Af Amer 56 L Est GFR (MDRD) Non-Af 46 L BUN/Creatinine Ratio 36.4 H Glucose 140 H Calcium 10.0 Total Bilirubin 0.50 Direct Bilirubin 0.18 AST 12 L ALT 17 Alkaline Phosphatase 31 L Total Protein 6.8 Albumin 3.7 Globulin 3.1 Lipase 62 Radiography Diagnostic Testing: Clinical Impression(s) from Imaging Studies Abdomen/Pelvis CT 12/03/23 18:31 IMPRESSION: Right renal cysts. Nonobstructing left renal stone. Minimal gas in the urinary bladder. Infectious etiology cannot be excluded Fatty umbilical hernia. Electronically Signed: Ethan Acevedo DO at 20:13 EDT Reading Location ID and State: [facility] / [place] Tel [phone], Service support , Treatment and Re-Evaluation :: Patient was given morphine and Zofran for pain control. We chose to hold the hydralazine and monitor her pressure. Systolic pressure is now in the 150s. CBC reveals a white count of 5.0 with normal differential. Hemoglobin is 12.5. Chemistry studies reveal a BUN of 43 and creatinine of 1.18. This is slightly elevated compared to her prior labs. I will give her gentle IV fluid hydration. LFTs and lipase are unremarkable. CT scan of the abdomen pelvis with IV contrast reveals a fatty umbilical hernia. No evidence of obstruction. Repeat examination patient is much more comfortable. Patient is currently scheduled to see Dr. Aviles in 3 weeks. I did speak with Dr. Jacqueline holt. She asked family to call tomorrow for an appointment, stating that they should be able to get her in earlier without much difficulty. Family will call tomorrow. Return instructions given. Discharge Plan Triage Chief Complaint: Abd Pain ED Provider: Chata Bridges Dx/Rx/DC Orders Clinical Impression: Hernia, umbilical Instructions: ED Hernia (Adult) Prescriptions: No Action fenofibrate nanocrystallized 145 mg tablet 145 mg PO DAILY Patient Comments: TAKE ONE TABLET BY MOUTH EVERY DAY potassium chloride 10 mEq capsule, extended release 10 meq PO DAILY vitamin B complex Tablet 1 tab PO DAILY aspirin [Adult Low Dose Aspirin] 81 mg tablet,delayed release (DR/EC) 81 mg PO DAILY paroxetine HCl [Paxil] 10 mg tablet 10 mg PO QHS coenzyme Q10 [CoQ-10] 100 mg capsule 100 mg PO DAILY carvedilol 12.5 mg tablet See Rx Instructions PO BID Rx Instructions: orally twice a day; 25 mg in the AM and 12.5 mg in the PM hydrochlorothiazide 25 mg tablet 25 mg PO DAILY losartan 100 mg tablet 100 mg PO QHS ascorbic acid (vitamin C) [Vitamin C] 500 mg Tablet 500 mg PO DAILY cholecalciferol (vitamin D3) [Vitamin D3] 25 mcg (1,000 unit) Capsule 25 mcg PO DAILY hydrocodone-acetaminophen 5-325 mg tablet 1 tab PO Q6H PRN PRN (Reason: Pain) 3 Days Qty: 10 0RF atorvastatin [Lipitor] 20 mg tablet 20 mg PO QHS Qty: 90 3RF Primary Care Provider: Patrick Cowart Referrals: Jordan Aviles MD [Med Staff - Active Staff] - 5-7 Days Patrick Cowart MD [Primary Care Provider] - Activity Restrictions/Additional Instructions: Please call Dr. Aviles's office tomorrow to have your appointment moved up. We spoke with Dr. Phillips, one of Dr. Aviles's partners [facility]. She states that they should be able to see you sooner than the appointment you currently have scheduled in 3 weeks Print Language: Armenian Disposition Disposition: Home, Self Care
[2023-12-03] MEDS: Morphine 4 MG/ML Syringe IV (18:51)
[2023-12-03] MEDS: Ondansetron 4 MG/2 ML Vial IV (18:51)
[2023-12-03 18:54] VITALS: BP 196/66
[2023-12-03 19:03] LABS: Absolute Lymphocyte Count 1.39 X10^3/uL (0.83-4.51); Basophil# 0.05 X10^3/uL; Eosinophil# 0.11 X10^3/uL; Eosinophils% 2.2 % (0-5); Hematocrit 36.6 % (37-47); Hemoglobin 12.5 g/dL (12.0-15.0); Lymphocyte # 1.39 X10^3/ul (0.83-4.51); Lymphocyte % 27.9 % (19-41); Mean Corp Hgb Conc 34.2 g/dL (32-36); Mean Corpuscular Hgb 31.6 pg (27.0-32.0); Mean Corpuscular Volume 92.7 fL (81-99); Mean Platelet Vol. 9.8 fl (6.2-12.0); Monocyte# 0.41 X10^3/uL; Monocyte% 8.2 % (0-10); NRBC Flagged by Analyzer 0 % (0-5); Neutrophil # 3.01 X10^3/uL (2.7-7.7); Neutrophil % 60.3 % (47-70); Platelet Count 283 K/mm3 (150-450); RBC Distribution Width CV 12.6 % (11.6-14.6); RBC Distribution Width SD 43.4 fl (35.1-43.9); Red Blood Count 3.95 M/mm3 (4.2-5.4)
[2023-12-03 19:28] LABS: AST(SGOT) 12 U/L (15-37); Alanine Aminotransfer ALT/SGPT 17 U/L (13-56); Albumin, Serum 3.7 g/dL (3.2-5.0); Alkaline Phosphatase 31 U/L (45-117); Anion Gap 6 (5-15); BUN 43 mg/dL (7-18); BUN/Creat Ratio 36.4 RATIO (10-20); Bilirubin, Direct 0.18 mg/dL (0.00-0.30); Chloride 109 mmol/L (98-107); Creatinine, Serum 1.18 mg/dL (0.55-1.02); EST Glomerular Filtration Rate 46 mL/min (>60); Est Glom Filt Rate - Afr Amer 56 mL/min (>60); Globulin 3.1 g/dL (2.2-4.2); Glucose 140 mg/dL (74-106); Lipase 62 U/L (13-75); Potassium 3.9 mmol/L (3.5-5.1); Protein, Total 6.8 g/dL (6.4-8.2); Sodium Level 140 mmol/L (136-145)
[2023-12-03] MEDS: 0.9% Normal Saline (1000mL) 1,000 ML 150 ML IV (19:48)
[2023-12-03 20:58] VITALS: BP 193/81; PULSE 53; RESP 16; TEMP 36.8; O2SAT 98
== END 2023-12-03 21:00 | disposition home or self-care (01) ==
PROVIDERS: Emergency Provider Emergency Medicine; PCP Family Medicine; Visit Provider Emergency Medicine
DX: K42.9 Umbilical hernia without obstruction or gangrene (principal); I25.10 Atherosclerotic heart disease of native coronary artery without angina pectoris; Z95.5 Presence of coronary angioplasty implant and graft
CPT/HCPCS: 74177; 80048; 80076; 83690; 85025; 96361; 96374; 96375; 96376; 99282; J7030; Q9967; A4216; J2405

== ENCOUNTER 2023-12-17 05:58 | Day surgery (SDC) | payer MEDICARE, OTHER, SELFPAY ==
[2021-04-10 08:54] VITALS: BMI 29.0
[2023-12-17] VITALS (10 sets, daily range): BP systolic 137–181; BP diastolic 49–61; PULSE 50–60; RESP 16–18; TEMP 36.2–37.4; O2SAT 95–100; BMI 26.2
--- NOTE | 2023-12-17 06:06 | EKG12_ITS ---
Test Reason : PREOP Blood Pressure : / mmHG Vent. Rate : 051 BPM Atrial Rate : 051 BPM P-R Int : 186 ms QRS Dur : 072 ms QT Int : 418 ms P-R-T Axes : 038 -41 047 degrees QTc Int : 385 ms Sinus bradycardia with sinus arrhythmia Left axis deviation Abnormal ECG When compared with ECG of 13-APR-2021 18:27, Criteria for Inferior infarct are no longer Present T wave inversion no longer evident in Inferior leads QT has shortened Confirmed by Abdelrahman Burrows ([id number]), greeting card editor HERMINIO SERNA ([id number]) on 12/22/2023 6:10:52 AM Referred By: Jordan Aviles Confirmed By:Abdelrahman Burrows
--- NOTE | 2023-12-17 06:28 | PCM.HP.BLA ---
History and Physical Date of Admission: 12/17/23 Intake Vital Signs 10/12/2409:22 12/02/2417:16 12/10/2413:00 Height 5 ft 3 in 5 ft 3 in 5 ft 3 in Weight: 148 lb 8 oz BMI 26.3 BP 155/71 H Blood Pressure Location Rt brachial Position Sitting Respiration 18 Pulse 55 L Pulse Source Monitor Pulse Oximetry (%) 97 Oxygen Delivery Method room air Intake Visit Reasons: DISCUSS UMBILICAL SURGERY Chief Complaint: update history and physcal umbilical hernia repair Surveyor'S Assistant Required: No Is patient in pain?: No Allergies naproxen (From AlePixtronix) Adverse Reaction (Verified 12/11/23 14:06) Itching Medications ?Medication ?Instructions ?Recorded ?Confirmed ?Type aspirin 81 mg tablet,delayed 81 mg PO DAILY heart health 12/06/20 12/11/23 History release (Adult Low Dose Aspirin) fenofibrate nanocrystallized 145 145 mg PO DAILY triglycerides 12/06/20 12/11/23 History mg tablet potassium chloride 10 mEq 10 meq PO DAILY supplement 12/06/20 12/11/23 History capsule,extended release vitamin B complex 1 tab PO DAILY vitamin 12/06/20 12/11/23 History ascorbic acid (vitamin C) 500 mg 500 mg PO DAILY 04/13/21 12/11/23 History tablet (Vitamin C) cholecalciferol (vitamin D3) 25 25 mcg PO DAILY 04/13/21 12/11/23 History mcg (1,000 unit) capsule (Vitamin D3) hydrochlorothiazide 25 mg tablet 25 mg PO DAILY 04/13/21 12/11/23 History losartan 100 mg tablet 100 mg PO QHS 04/13/21 12/11/23 History coenzyme Q10 100 mg capsule 100 mg PO DAILY 06/10/22 12/11/23 History (CoQ-10) paroxetine HCl 10 mg tablet (Paxil) 10 mg PO QHS 06/10/22 12/11/23 History hydrocodone-acetaminophen 5-325mg 1 tab PO Q6H PRN PRN Pain 3 days 06/14/23 12/11/23 Rx 5mg-325mg #10 TABLETS atorvastatin 20 mg tablet (Lipitor) 20 mg PO QHS #90 tabs 09/03/23 12/11/23 Rx carvedilol 12.5 mg tablet See Rx Instructions PO BID 10/13/23 12/11/23 History PFSH Medical History (Updated 12/11/23 @ 14:04 by Deena Topete) Hernia, umbilical Abdominal pain Atherosclerotic heart disease of [place] coronary artery with other forms of angina pectoris History of pulmonary embolus (PE) (2010) Aortic valve calcification Lymphedema Spinal stenosis at L4-L5 level Essential tremor Iliotibial band syndrome, left leg GERD (gastroesophageal reflux disease) Chilaiditi's syndrome Depression Degenerative disc disease, cervical Segmental and somatic dysfunction of thoracic region Segmental and somatic dysfunction of cervical region Hyperlipidemia Benign essential hypertension Surgical History History of coronary artery stent placement (12/26/20) History of repair of rectocele History of hysterectomy History of hemorrhoidectomy History of arthroscopy of left knee History of bilateral cataract extraction History of tonsillectomy Family History Grandfather Ward's diseaseFather CAD (coronary artery disease)Sister CAD (coronary artery disease) Hypertension GoutMother Hypertension CHF (congestive heart failure)Grandfather Cancer ProstateGrandmother CVA (cerebral vascular accident)Daughter Factor V Leiden Social History Smoking Status: Never smoker alcohol intake: current details: Occasionally substance use type: does not use HPI HPI HPI: Patient is an 80-year-old female who was seen here last June to discuss umbilical hernia repair. We did discuss surgery and she decided to hold off because she lost her . She is now having more pain and discomfort and would like the hernia fixed. ROS General General: Yes weight change and appetite; No fatigue, colon cancer, breast cancer or weakness HEENT HEENT: Yes eye surgery; No difficulty swallowing, eye injury, swollen glands or hoarseness Endo Endocrine: No thyroid disease, diabetes mellitus, thyroid cancer, Hair loss, heat intolerance or cold intolerance Skin Skin: No rash or changing moles Musc Musculoskeletal: No back problems, arthritis, rheumatoid arthritis, gout or joint pain Cardio Cardiovascular: Yes high blood pressure and heart stent; No murmur, pacemaker, heart disease, atrial fibrillation, heart attack, palpitations, shortness of breat with exertion or chest pain Psych Psychiatric: Yes depression and anxiety; No hearing voices Resp Respiratory: No shortness of breath, No sleep apnea, No cough, No COPD, No asthma, No emphysema and No wheezing Gastro Gastrointestinal: No abdominal pain, No nausea or vomiting, Yes diarrhea, No constipation, No blood in stool, Yes acid reflux, No hemorrhoids, No ulcers, No gallbladder problem and No black,tarry stools Ruben Hematologic: No blood thinners, No blood disorders, No bleeding, No anemia and Yes blood clots Additional Details: h/o blood clot after knee surgery Neuro Neurologic: No system reviewed and no additional complaints, except as documented, No as per HPI, No abnormal gait, No abnormal hearing, No abnormal movements, No abnormal speech, No behavioral changes, No burning sensations, No confusion, No convulsions, No disequilibrium, No dizziness, No localized weakness, No frequent falls, No headache(s), No lack of coordination, No loss of vision, No memory loss, Yes numbness, No other visual disturbances, No radicular pain, No restless legs, No sensory deficit, No syncope, Yes tingling, No tremor(s), No weakness and No other Exam Const General: cooperative Orientation: alert and oriented x3 HENMT Head: normal to inspection Neck Neck: normal visual inspection and full ROM Chest Chest palpation & inspection: normal inspection of the chest Resp Effort & Inspection: normal respiratory effort Auscultation: clear to auscultation bilaterally Cardio Rate: regular rate Rhythm: regular rhythm GI Inspection: non-distended Palpation: soft, hernia umbilical and nontender Skin General: no rashes or lesions noted Neuro General: patient alert and patient oriented x3 Extrem General: full ROM Psych Appearance: grossly normal Mental Status: mental status grossly normal Assessment and Plan Assessment and Plan (1) Hernia, umbilical: Status: Inactive Qualifiers: Obstruction and gangrene presence: without obstruction or gangrene Qualified Code(s): K42.9 - Umbilical hernia without obstruction or gangrene Plan: Patient has a small medical hernia which she was planning on having fixed back at the beginning this year but when her she canceled surgery. The patient would like this hernia repaired. I still believe it is small to fix without mesh. I discussed the risks of surgery with her such as bleeding, infection, injury to underlying organs. Patient understands the risks and is when to proceed. She will hold her aspirin for 5 days prior to surgery. Jordan Aviles MD Pager: [facility] [address] [place] [address], [address] [place] [address] Office: I have examined the patient and the H&P has been reviewed. There are no clinical changes since date of exam.
[2023-12-17] MEDS: Lactated Ringers 1,000 ML 15 ML IV (06:33)
--- NOTE | 2023-12-17 07:12 | PCM.PRE.AN2 ---
ASA Classification* ASA Classification ASA Classification: 3 Assessment & Plan Anesthesia* Anesthesia Assessment Anesthesia Assessment: Discussed sedation and/or anesthesia options, risks, benefits, and alternatives with patient/parents/legal guardian/POA. Questions invited. The patient/parents/legal guardian/POA seems to understand and agrees to proceed with anesthesia plan. Reviewed the physical assessment, medical history, allergy history and patient home medications list prior to surgery/procedure/anesthetic and documented any changes. Performed airway and anesthesia risk assessments. 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 When Was Last Pacemaker Check QUESTION #4 FULL TEXT: You/Your Family Experience fever (hyperthermia) with Anesthesia Last Oral Intake Last Oral intake: Last Oral Intake NPO since 05:15 12/17/23 06:24 Meds taken in AM with sips of Yes 12/17/23 06:24 water? Meds patient instructed to take am of surgery PONV PONV - water softener servicer and installer: PONV - water softener servicer and installer Female Yes 12/15/23 10:15 HX of Motion Sickness Yes 12/15/23 10:15 HX of N/V After Surgery No 12/15/23 10:15 Non-Smoker Yes 12/15/23 10:15 Duration of Surgery greater No 12/15/23 10:15 than 60 minutes Number of Risk Factors 3 12/15/23 10:15 PONV Score Moderate Risk 12/15/23 10:15 Height & Weight Height & Weight: Anesthesia: Height & Weight Height 5 ft 3 in 12/17/23 06:24 Weight: 67.3 kg 12/17/23 06:24 Body Mass Index (BMI) 26.2 12/17/23 06:24 Respiratory Assessment Respiratory Assessment - water softener servicer and installer: Respiratory Tract Infection Hx - water softener servicer and installer Hx Respiratory Tract Infection No: SINUS DRAINAGE 12/15/23 10:15 STOP Sleep Apnea STOP Sleep Apnea - water softener servicer and installer: STOP Sleep Apnea - water softener servicer and installer Hx Hypertension Yes: CONTROLLED WITH MED 12/15/23 10:15 Hx Sleep Apnea No 12/15/23 10:15 CPAP BIPAP Do you snore loudly (louder Yes 12/15/23 10:15 than talking or can be heard Do you often feel tired/ Yes 12/15/23 10:15 fatigued/ sleepy during daytime? Has anyone observed you stop No 12/15/23 10:15 breathing during sleep? STOP Results Positive 12/15/23 10:15 QUESTION #5 FULL TEXT : Do you snore loudly (louder than talking or can be heard through closed doors)? 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 Specify any problems Hx of Preganancy in last 3 No 12/15/23 10:15 Months Nurse Filling Out Transfusion DSCHRIBER 12/15/23 10:15 & Questions: Date: 12/15/23 12/15/23 10:15 Time: 10:19 12/15/23 10:15 Patient unable to answer at this time (ie. confused, unrespo /Reproduction History /Reproductive History - water softener servicer and installer: /Reproductive Hx- water softener servicer and installer Hx Now No 12/15/23 10:15 Gestational Age (in weeks): EDC: Hx Hx Para Hx Section SAB No 12/15/23 10:15 Active Medications Active Medications: Current Medications Generic Name Dose Route Start Last Admin Trade Name Freq PRN Reason Stop Dose Admin Cefazolin Sodium 2 gm/ Sodium 110 mls @ 150 mls/hr 12/17/23 08:40 Chloride IV 12/17/23 09:23 PREOP ONE Lactated Ringer's 1,000 mls @ 15 mls/hr 12/17/23 06:15 12/17/23 06:33 IV 15 mls/hr .Q48H PADMINI Administration Anesthesia Focused Assessment* Temperature: 98.5 F Pulse Rate: 52 Blood Pressure: 137/55 Respiratory Rate: 16 Pulse Ox: 97 Airway Assessment Mouth opens: >3 cm Mallampati Score: II Focused Labs Anesthesia Preop lab: CBC WBC 5.0 K/mm3 (4.4-11.0) 12/03/23 18:40 RBC 3.95 M/mm3 (4.2-5.4) L 12/03/23 18:40 Hgb 12.5 g/dL (12.0-15.0) 12/03/23 18:40 Hct 36.6 % (37-47) L 12/03/23 18:40 Plt Count 283 K/mm3 (150-450) 12/03/23 18:40 CHEMISTRY Potassium 3.9 mmol/L (3.5-5.1) 12/03/23 18:40 Sodium 140 mmol/L (136-145) 12/03/23 18:40 Magnesium 1.9 mg/dL (1.6-2.6) 07/14/23 15:55 BUN 43 mg/dL (7-18) H 12/03/23 18:40 Creatinine 1.18 mg/dL (0.55-1.02) H 12/03/23 18:40 Glucose 140 mg/dL (74-106) H 12/03/23 18:40 POC Glucose 139 mg/dL (70-110) H 04/13/21 18:00 TSH 2.06 uIU/mL (0.358-3.74) 07/14/23 15:55 COAG Review of Systems (Anesthesia) ROS Narrative System reviewed and no additional complaints, except as documented. [facility] Medical History Wears hearing aid Wears glasses Cancer Post-menopausal Anxiety Arthritis Bladder disease Hepatitis Fatty liver High cholesterol Back pain Heartburn Shortness of breath on exertion Non-smoker History of pain when walking History of edema History of echocardiogram History of rheumatic fever Cardiology follow-up encounter Abdominal pain Hernia, umbilical Atherosclerotic heart disease of [place] coronary artery with other forms of angina pectoris History of pulmonary embolus (PE) (2010) Aortic valve calcification Lymphedema Spinal stenosis at L4-L5 level Essential tremor Iliotibial band syndrome, left leg GERD (gastroesophageal reflux disease) Chilaiditi's syndrome Depression Degenerative disc disease, cervical Segmental and somatic dysfunction of thoracic region Segmental and somatic dysfunction of cervical region Hyperlipidemia Benign essential hypertension Home Medications ?Medication ?Instructions ?Recorded ?Last Taken ?Type aspirin 81 mg tablet,delayed 81 mg PO DAILY heart health 12/06/20 12/11/23 History release (Adult Low Dose Aspirin) fenofibrate nanocrystallized 145 145 mg PO DAILY triglycerides 12/06/20 Unknown History mg tablet potassium chloride 10 mEq 10 meq PO DAILY supplement 12/06/20 12/11/20 History capsule,extended release vitamin B complex 1 tab PO DAILY vitamin 12/06/20 Unknown History ascorbic acid (vitamin C) 500 mg 500 mg PO DAILY 04/13/21 Unknown History tablet (Vitamin C) cholecalciferol (vitamin D3) 25 25 mcg PO DAILY 04/13/21 Unknown History mcg (1,000 unit) capsule (Vitamin D3) losartan 100 mg tablet 100 mg PO QHS 04/13/21 Unknown History coenzyme Q10 100 mg capsule 100 mg PO DAILY 06/10/22 Unknown History (CoQ-10) paroxetine HCl 10 mg tablet (Paxil) 20 mg PO DAILY 06/10/22 12/17/23 05:45 History atorvastatin 20 mg tablet (Lipitor) 20 mg PO QHS #90 tabs 09/03/23 Unknown Rx carvedilol 12.5 mg tablet 12.5 mg PO QHS 12/15/23 Unknown History carvedilol 12.5 mg tablet 25 mg PO DAILY 12/15/23 12/17/23 05:45 History paroxetine HCl 10 mg tablet (Paxil) 10 mg PO QHS 12/15/23 Unknown History spironolactone 25 1 tab PO DAILY 12/15/23 Unknown History mg-hydrochlorothiazide 25 mg tablet Allergy/AdvReac Type Severity Reaction Status Date / Time naproxen (From Aleve) AdvReac Itching Verified 12/17/23 06:23 Family History Grandfather Ward's disease Father CAD (coronary artery disease) Sister CAD (coronary artery disease) Hypertension Gout Mother Hypertension CHF (congestive heart failure) Grandfather Cancer Prostate Grandmother CVA (cerebral vascular accident) Daughter Factor V Leiden Surgical History History of cardiac catheterization Hx of colonoscopy History of coronary artery stent placement (12/26/20) History of repair of rectocele History of hysterectomy History of hemorrhoidectomy History of arthroscopy of left knee History of bilateral cataract extraction History of tonsillectomy Social History Smoking Status: Never smoker alcohol intake: current details: Occasionally substance use type: does not use
--- NOTE | 2023-12-17 07:30 | HERN_PTH ---
PATIENT: VENU RAMIREZ LOC: [facility] [place] U#:[id number] AGE/SX: 88/F ROOM: RE12/17/[address]: Dr. Jordan Aviles MD : 1935 BED: DIS: 12/17/2023 SPEC #: [id number] RECD: 12/17/23 10:06 STATUS: YIMI ALEXIS #: [id number] VIVEK: 12/17/23 07:[address]: Jordan Aviles DEPT: SURGICAL PATHOLOGY RECD BY: Sigrid Pena ENTERED: 12/17/23 11:37 SP TYPE: Hernia OTHR DR: Dr. Patrick Cowart MD Tissues: HERNIA Procedures: Surgery Specimen Level II HEADER OPERATION: Hernia, umbilical repair PRE-OP DIAGNOSIS: Hernia, umbilical TISSUE SUBMITTED: Hernia sac and contents MICROSCOPIC DIAGNOSIS Hernia sac and contents, herniorrhaphy: Fibrosis and mild chronic inflammation. AM/mr 12/18/2023 MICROSCOPIC DESCRIPTION Slides are reviewed. GROSS DESCRIPTION Received in fixative is one container labeled with the patient's name and designated Hernia sac and contents. The specimen consists of an irregular fragment of sotelo-yellow fibrofatty tissue measuring 4.5 x 3.5 x 1.0cm. Serial sections do not reveal mass lesions. Learning Coach sections are submitted in one cassette. JOCELYN/ 12/17/2023 TC:3 CPT:[id number]
[2023-12-17] MEDS: Cefazolin 2 GM in 0.9% Normal Saline (100mL Bag) 100 ML IV (08:09)
[2023-12-17] MEDS: Lidocaine 1% (20 ml mdv) 20 ML Vial (08:18)
[2023-12-17] MEDS: Bupivacaine Mpf 0.5% 30 ML VIAL (08:38)
--- NOTE | 2023-12-17 08:43 | PCM.POST.ANE ---
Anesthesia: Postop Eval I Current Vital Signs Temperature: 99.3 F Pulse Rate: 59 Blood Pressure: 143/52 Respiratory Rate: 16 Pulse Ox: 99 Oxygen Delivery Method: Simple Mask Oxygen Flow Rate (L/min): 6 Assessment Airway patent: No Spontaneous unlabored respirations: No Mental status: Calm nausea: No Vomiting: No Anesthesia Complication: No Fluid Hydration Crystalloid volume administer (ml): 1 Total IV fluid infused: 1 Progress Note Anesthesia document: Postop Eval 1 completed: No
--- NOTE | 2023-12-17 08:46 | PCM.POSTANE2 ---
Anesthesia Postop Eval I Sum Postop Eval Completion status Anesthesia document: Postop Eval 1 completed: No Anesthesia Postop Eval I Summary Anesthesia Postop Eval I Summary: Anesthesia Postop Eval I: Assessment Summary Airway patent No 12/17/23 08:45 Spontaneous unlabored No 12/17/23 08:45 respirations Mental status Calm 12/17/23 08:45 nausea No 12/17/23 08:45 Vomiting No 12/17/23 08:45 Anesthesia Postop Eval I: Fluid Summary Crystalloid volume administer 1 12/17/23 08:45 (ml) Colloids volume administered ( ml) Blood Product volume administered (ml) Total IV fluid infused 1 12/17/23 08:45 Anesthesia Postop Eval I: Summary Notes Anesthesia Complication No 12/17/23 08:45 Anesthesia Complication Comment: Post-operative progress note Anesthesia: Postop Eval II Evaluation Mental status: Asleep Pain Level: 0 nausea: No Vomiting: No Complications Anesthesia Complication: No
--- NOTE | 2023-12-17 09:05 | PCM.OPRPT ---
Report of Operation Date of Procedure: 12/17/23 Pre-Operative Diagnosis: Umbilical hernia Post-Operative Diagnosis: Umbilical hernia Surgery/Procedure Performed:: Umbilical hernia repair less than 3 cm Type of Anesthesia: Local MAC Specimen's removed: Hernia sac Estimated Blood Loss (mL): 5 Description of Procedure: Patient was brought back to the operating room and MAC anesthesia was induced. The abdomen was prepped and draped in usual sterile fashion. A curvilinear incision was marked underneath the umbilicus and injected with local anesthetic. Incision was made with a scalpel and the hernia sac was identified. It was circumferentially dissected free from surrounding tissue using electrocautery and the umbilical stalk was from it. The hernia was difficult to reduce and the hernia sac had a lot of fibrosis so the hernia sac was opened and we ensured that there were no contents left in the hernia and then the hernia sac was removed and sent for pathology. The defect was about 1 cm. It was closed with 2 [id number] 0 Nurolon sutures. The area was irrigated and suctioned dry and hemostasis was obtained using electrocautery. The incision was closed with interrupted 3-0 Vicryl sutures. Steri-Strips and bandages were applied and patient was taken to PACU in stable condition and tolerated the procedure well. Grafts/Implants Used: No mesh used Admit VTE Documentation VTE Mechan Device Prophylaxis: SCD's
--- NOTE | 2023-12-17 09:07 | DCINST_ITS ---
Discharge Instructions Diet Discharge Diet: Light diet - advance as tolerated Activity Discharge Activity: May Drive (when off narcotics) and May Shower (tomorrow over bandage) Lifting Restrictions: 15 lbs for 2 weeks Additional Activity Instructions:: Tylenol for pain, oxy for breakthrough pain Dressing / Incision Call your doctor if your incision/area has: Continuous Slow Oozing, Sudden Increased Bleeding, Increased Pain/ Swelling, Increased Redness, Foul Smelling Discharge and Swelling at the incision site Call your doctor if you observe: Fever of 101 or Higher Remove Dressing in: 3 days (Remove dressing and cotton ball in 3 days, remove steri strips in 7-10 days) Cleanse incision/area with: Soap & Water Follow Up Care Please Follow Up With: Jordan Aviles MD When: Please call to schedule 2 week follow up appointment. [phone] Test Results: Test results from this visit will be discussed in further detail at your follow- up appointment, if applicable. Discharge Plan Admission Attending Provider: Jordan Aviles Primary Care Provider: Patrick Cowart Instructions Print Language: Telugu Discharge Orders/Prescriptions Prescriptions: New acetaminophen 325 mg Tablet 650 mg PO Q4H PRN PRN (Reason: Pain 1-10 Or Fever) Qty: 0 0RF oxycodone 5 mg Tablet 5 mg PO Q6H PRN PRN (Reason: Pain Score 6-10) 5 Days Qty: 15 0RF No Action fenofibrate nanocrystallized 145 mg tablet 145 mg PO DAILY Patient Comments: TAKE ONE TABLET BY MOUTH EVERY DAY potassium chloride 10 mEq capsule, extended release 10 meq PO DAILY vitamin B complex Tablet 1 tab PO DAILY aspirin [Adult Low Dose Aspirin] 81 mg tablet,delayed release (DR/EC) 81 mg PO DAILY paroxetine HCl [Paxil] 10 mg tablet 20 mg PO DAILY coenzyme Q10 [CoQ-10] 100 mg capsule 100 mg PO DAILY losartan 100 mg tablet 100 mg PO QHS ascorbic acid (vitamin C) [Vitamin C] 500 mg Tablet 500 mg PO DAILY cholecalciferol (vitamin D3) [Vitamin D3] 25 mcg (1,000 unit) Capsule 25 mcg PO DAILY carvedilol 12.5 mg tablet 25 mg PO DAILY Rx Instructions: must administer with a meal/food carvedilol 12.5 mg tablet 12.5 mg PO QHS Rx Instructions: must administer with a meal/food spironolacton-hydrochlorothiaz 25-25 mg tablet 1 tab PO DAILY paroxetine HCl [Paxil] 10 mg tablet 10 mg PO QHS atorvastatin [Lipitor] 20 mg tablet 20 mg PO QHS Qty: 90 3RF Referrals / Follow Up: Patrick Cowart MD [Primary Care Provider] - Disposition Disposition (needs filled in before D/C Order can be placed): Home, Self Care
[2023-12-17] MEDS: Acetaminophen 325 MG Tablet 650 MG PO (10:14)
== END 2023-12-17 11:33 | disposition home or self-care (01) ==
LOC: SDC 05:58 → AC 05:59
PROVIDERS: PCP Family Medicine; Referring Provider Surgery; Visit Provider Surgery
PROC: (CPT 49591; principal; 2023-12-17 07:15)
DX: K42.9 Umbilical hernia without obstruction or gangrene (principal); E78.00 Pure hypercholesterolemia, unspecified; I25.10 Atherosclerotic heart disease of native coronary artery without angina pectoris; I10 Essential (primary) hypertension; K21.9 Gastro-esophageal reflux disease without esophagitis; Z79.82 Long term (current) use of aspirin; Z79.899 Other long term (current) drug therapy
CPT/HCPCS: 49591; 00830; 88302; 93005; J7120; J2405

== ENCOUNTER → 2024-02-08 | Outpatient (CLI) | payer MEDICARE, OTHER, SELFPAY ==
[2021-04-10 08:54] VITALS: BMI 29.0
[2024-02-08 17:45] LABS: Absolute Lymphocyte Count 1.68 X10^3/uL (0.83-4.51); Absolute Neutrophil Count 3.9 X10^3/uL (2.0-7.7); Basophil# 0.04 X10^3/uL; Basophil% 0.6 % (0-1); Eosinophil# 0.07 X10^3/uL; Eosinophils% 1.1 % (0-5); Hematocrit 34.1 % (37-47); Hemoglobin 11.2 g/dL (12.0-15.0); Lymphocyte # 1.68 X10^3/ul (0.83-4.51); Lymphocyte % 26.8 % (19-41); Mean Corp Hgb Conc 32.8 g/dL (32-36); Mean Corpuscular Hgb 31.3 pg (27.0-32.0); Mean Corpuscular Volume 95.3 fL (81-99); Monocyte# 0.57 X10^3/uL; Monocyte% 9.1 % (0-10); NRBC Flagged by Analyzer 0 % (0-5); Neutrophil # 3.87 X10^3/uL (2.7-7.7); Neutrophil % 61.9 % (47-70); Platelet Count 297 K/mm3 (150-450); RBC Distribution Width CV 13.3 % (11.6-14.6); RBC Distribution Width SD 46.9 fl (35.1-43.9); Red Blood Count 3.58 M/mm3 (4.2-5.4); White Blood Count 6.3 K/mm3 (4.4-11.0)
[2024-02-08 18:41] LABS: ALB/GLOB Ratio 1.3 RATIO (0.9-2.4); AST(SGOT) 15 U/L (15-37); Alanine Aminotransfer ALT/SGPT 16 U/L (13-56); Albumin, Serum 3.9 g/dL (3.2-5.0); Alkaline Phosphatase 27 U/L (45-117); Anion Gap 5 (5-15); BUN 46 mg/dL (7-18); BUN/Creat Ratio 38.7 RATIO (10-20); Calcium,Total 10.2 mg/dL (8.5-10.1); Chloride 107 mmol/L (98-107); Creatinine, Serum 1.19 mg/dL (0.55-1.02); EST Glomerular Filtration Rate 46 mL/min (>60); Est Glom Filt Rate - Afr Amer 55 mL/min (>60); Globulin 3.1 g/dL (2.2-4.2); Glucose 86 mg/dL (74-106); Sodium Level 137 mmol/L (136-145)
== END | disposition home or self-care (01) ==
LOC: MFPLAB 16:51
PROVIDERS: PCP Family Medicine; Visit Provider Family Medicine
DX: R53.83 Other fatigue (principal); I10 Essential (primary) hypertension
CPT/HCPCS: 36415; 80053; 85025

== ENCOUNTER → 2024-03-15 | Outpatient (CLI) | payer MEDICARE, OTHER, SELFPAY ==
[2021-04-10 08:54] VITALS: BMI 29.0
[2024-03-15 15:38] LABS: Anion Gap 7 (5-15); BUN 27 mg/dL (7-18); BUN/Creat Ratio 23.5 RATIO (10-20); Calcium,Total 9.8 mg/dL (8.5-10.1); Chloride 114 mmol/L (98-107); Creatinine, Serum 1.15 mg/dL (0.55-1.02); EST Glomerular Filtration Rate 47 mL/min (>60); Est Glom Filt Rate - Afr Amer 57 mL/min (>60); Glucose 141 mg/dL (74-106); Potassium 3.4 mmol/L (3.5-5.1); Sodium Level 143 mmol/L (136-145)
== END | disposition home or self-care (01) ==
LOC: MTLAB 12:33
PROVIDERS: PCP Family Medicine; Referring Provider Family Medicine; Visit Provider Family Medicine
DX: M79.89 Other specified soft tissue disorders (principal)
CPT/HCPCS: 36415; 80048

== ENCOUNTER → 2024-07-26 | Outpatient (CLI) | payer MEDICARE, OTHER, SELFPAY ==
[2021-04-10 08:54] VITALS: BMI 29.0
[2024-07-26 15:17] LABS: Hematocrit 35.2 % (37-47); Hemoglobin 11.7 g/dL (12.0-15.0); Mean Corp Hgb Conc 33.2 g/dL (32-36); Mean Corpuscular Hgb 31.3 pg (27.0-32.0); Mean Corpuscular Volume 94.1 fL (81-99); Mean Platelet Vol. 9.9 fl (6.2-12.0); Platelet Count 280 K/mm3 (150-450); RBC Distribution Width CV 13.2 % (11.6-14.6); RBC Distribution Width SD 45.8 fl (35.1-43.9); Red Blood Count 3.74 M/mm3 (4.2-5.4); White Blood Count 6.4 K/mm3 (4.4-11.0)
[2024-07-26 15:50] LABS: ALB/GLOB Ratio 1.4 RATIO (0.9-2.4); AST(SGOT) 17 U/L (15-37); Alanine Aminotransfer ALT/SGPT 21 U/L (13-56); Alkaline Phosphatase 41 U/L (45-117); Anion Gap 10 (5-15); BUN 40 mg/dL (7-18); BUN/Creat Ratio 35.7 RATIO (10-20); Calcium,Total 10.1 mg/dL (8.5-10.1); Chloride 108 mmol/L (98-107); Creatinine, Serum 1.12 mg/dL (0.55-1.02); EST Glomerular Filtration Rate 49 mL/min (>60); Est Glom Filt Rate - Afr Amer 59 mL/min (>60); Globulin 2.8 g/dL (2.2-4.2); Glucose 77 mg/dL (74-106); Potassium 4.7 mmol/L (3.5-5.1); Protein, Total 6.8 g/dL (6.4-8.2); Sodium Level 142 mmol/L (136-145)
== END | disposition home or self-care (01) ==
LOC: MFPLAB 12:15
PROVIDERS: PCP Family Medicine; Referring Provider Family Medicine; Visit Provider Family Medicine
DX: I10 Essential (primary) hypertension (principal); F41.1 Generalized anxiety disorder
CPT/HCPCS: 36415; 80053; 84443; 85027

== ENCOUNTER → 2024-10-24 | Outpatient (CLI) | payer MEDICARE, OTHER, SELFPAY ==
[2021-04-10 08:54] VITALS: BMI 29.0
[2024-10-24 18:07] LABS: Absolute Lymphocyte Count 1.72 X10^3/uL (0.83-4.51); Absolute Neutrophil Count 4.8 X10^3/uL (2.0-7.7); Basophil# 0.05 X10^3/uL; Basophil% 0.7 % (0-1); Eosinophil# 0.14 X10^3/uL; Eosinophils% 1.9 % (0-5); Hematocrit 33.9 % (37-47); Hemoglobin 11.4 g/dL (12.0-15.0); Lymphocyte # 1.72 X10^3/ul (0.83-4.51); Lymphocyte % 23.3 % (19-41); Mean Corp Hgb Conc 33.6 g/dL (32-36); Mean Corpuscular Hgb 33.1 pg (27.0-32.0); Mean Corpuscular Volume 98.5 fL (81-99); Monocyte# 0.57 X10^3/uL; Monocyte% 7.7 % (0-10); NRBC Flagged by Analyzer 0 % (0-5); Neutrophil # 4.84 X10^3/uL (2.7-7.7); Neutrophil % 65.7 % (47-70); Platelet Count 235 K/mm3 (150-450); RBC Distribution Width SD 46.3 fl (35.1-43.9); Red Blood Count 3.44 M/mm3 (4.2-5.4); White Blood Count 7.4 K/mm3 (4.4-11.0)
[2024-10-24 18:58] LABS: ALB/GLOB Ratio 1.9 RATIO (0.9-2.4); AST(SGOT) 16 U/L (<=31); Alanine Aminotransfer ALT/SGPT 17 U/L (<=34); Albumin, Serum 4.2 g/dL (3.4-4.8); Alkaline Phosphatase 65 U/L (35-104); Anion Gap 13 (5-15); BUN 43 mg/dL (4-19); BUN/Creat Ratio 30.1 RATIO (10-20); Calcium,Total 9.8 mg/dL (7.6-11.0); Carbon Dioxide 19.5 mmol/L (21.0-32.0); Chloride 105 mmol/L (98-108); Creatinine, Serum 1.41 mg/dL (0.70-1.20); EST Glomerular Filtration Rate 36 (>60); Ferritin 165 ng/mL (22-378); Globulin 2.2 g/dL (2.2-4.2); Glucose 141 mg/dL (70-99); Magnesium 2.1 mg/dL (1.5-2.2); Potassium 4.6 mmol/L (3.3-5.1); Protein, Total 6.4 g/dL (5.9-8.4); Sodium Level 137 mmol/L (133-145); Total Bilirubin 0.54 mg/dL (0.00-1.30)
== END | disposition home or self-care (01) ==
LOC: MFPLAB 14:59
PROVIDERS: PCP Family Medicine; Referring Provider Family Medicine; Visit Provider Family Medicine
DX: I10 Essential (primary) hypertension (principal); D64.9 Anemia, unspecified
CPT/HCPCS: 36415; 80053; 82728; 83735; 85025

== ENCOUNTER → 2025-01-24 | Outpatient (CLI) | payer MEDICARE, OTHER, SELFPAY ==
[2021-04-10 08:54] VITALS: BMI 29.0
[2025-01-24 19:14] LABS: Hematocrit 33.0 % (37-47); Hemoglobin 11.4 g/dL (12.0-15.0); Immature Granulocytes Count 0.060 X10^3/uL (0.0-0.0); Mean Corp Hgb Conc 34.5 g/dL (32-36); Mean Corpuscular Volume 96.8 fL (81-99); Mean Platelet Vol. 10.4 fl (6.2-12.0); NRBC Flagged by Analyzer 0 % (0-5); Platelet Count 233 K/mm3 (150-450); RBC Distribution Width CV 12.5 % (11.6-14.6); RBC Distribution Width SD 44.3 fl (35.1-43.9); Red Blood Count 3.41 M/mm3 (4.2-5.4); White Blood Count 6.8 K/mm3 (4.4-11.0)
[2025-01-24 20:04] LABS: AST(SGOT) 18 U/L (<=31); Alanine Aminotransfer ALT/SGPT 15 U/L (<=34); Albumin, Serum 4.3 g/dL (3.4-4.8); Alkaline Phosphatase 74 U/L (35-104); Anion Gap 15 (5-15); BUN 45 mg/dL (4-19); BUN/Creat Ratio 29.8 RATIO (10-20); Calcium,Total 10.0 mg/dL (7.6-11.0); Carbon Dioxide 19.5 mmol/L (21.0-32.0); Chloride 104 mmol/L (98-108); Ferritin 207 ng/mL (22-378); Globulin 2.2 g/dL (2.2-4.2); Glucose 96 mg/dL (70-99); Potassium 4.7 mmol/L (3.3-5.1); Vitamin B12 791 pg/mL (180-914)
[2025-01-24 21:24] LABS: FOLATES,SERUM (FOLIC ACID) 13.70 ng/mL (4.60-34.80)
== END | disposition home or self-care (01) ==
LOC: MFPLAB 15:35
PROVIDERS: PCP Family Medicine; Referring Provider Family Medicine; Visit Provider Family Medicine
DX: D64.9 Anemia, unspecified (principal); F41.1 Generalized anxiety disorder; I10 Essential (primary) hypertension
CPT/HCPCS: 36415; 80053; 82607; 82728; 82746; 84443; 85025

== ENCOUNTER → 2025-02-15 | Outpatient (CLI) | payer MEDICARE, OTHER, SELFPAY ==
[2021-04-10 08:54] VITALS: BMI 29.0
[2025-02-15 13:06] LABS: AST(SGOT) 18 U/L (<=31); Alanine Aminotransfer ALT/SGPT 17 U/L (<=34); Albumin, Serum 4.2 g/dL (3.4-4.8); Alkaline Phosphatase 79 U/L (35-104); Bilirubin, Direct 0.30 mg/dL (0.00-0.30); Cholesterol 130 mg/dL (<=200); Globulin 2.5 g/dL (2.2-4.2); Low Density Lipoprotein Calc. 30 mg/dL; Pro- Brain NATRIURETIC PEPTIDE 125 pg/mL (<=1800); Triglycerides 318 mg/dL; Very Low Density Lipoprotein 64 mg/dL (5-40); cholesterol:hdl ratio screen 3.56
== END | disposition home or self-care (01) ==
LOC: LAB 11:23
PROVIDERS: PCP Family Medicine; Referring Provider Physician Assistant Medical; Visit Provider Physician Assistant Medical
DX: E78.5 Hyperlipidemia, unspecified (principal); R06.09 Other forms of dyspnea
CPT/HCPCS: 36415; 80061; 80076; 83880

== ENCOUNTER → 2025-06-13 05:00 | Outpatient (REF) | payer MEDICARE, OTHER, SELFPAY ==
[2021-04-10 08:54] VITALS: BMI 29.0
[2025-06-13 08:08] LABS: Mucous, Urine 0 SEEN /hpf (<or=2+); Squamous Epithelial Cells - UA 0 SEEN /hpf (5-10)
[2025-06-13 08:24] LABS: Color, Urine Yellow (Yellow); Glucose, Dipstick Normal (Normal); Ketone-Dipstick Negative (Negative); Leukocyte Esterase-Dipstick 100 /ul (Negative); Nitrite-Dipstick Negative (Negative); Occult Blood-Urine Negative /ul (Negative); Protein-Dipstick 15 mg/dl (Negative); Specific Gravity, Urine 1.015 (1.002-1.030); Urine Bilirubin Dipstick Negative (Negative)
[2025-06-13 08:32] LABS: Hematocrit 32.6 % (37-47); Hemoglobin 10.7 g/dL (12.0-15.0); Immature Granulocytes Count 0.050 X10^3/uL (0.0-0.0); Mean Corp Hgb Conc 32.8 g/dL (32-36); Mean Corpuscular Volume 99.7 fL (81-99); Mean Platelet Vol. 9.7 fl (6.2-12.0); NRBC Flagged by Analyzer 0 % (0-5); Platelet Count 213 K/mm3 (150-450); RBC Distribution Width CV 12.4 % (11.6-14.6); RBC Distribution Width SD 45.0 fl (35.1-43.9); Red Blood Count 3.27 M/mm3 (4.2-5.4); White Blood Count 6.2 K/mm3 (4.4-11.0)
[2025-06-13 08:39] LABS: Red Blood Cells-Urine 0-5 SEEN /hpf (0-5)
[2025-06-13 08:54] LABS: AST(SGOT) 19 U/L (<=31); Alanine Aminotransfer ALT/SGPT 17 U/L (<=34); Albumin, Serum 3.8 g/dL (3.4-4.8); Alkaline Phosphatase 68 U/L (35-104); Anion Gap 13 (5-15); BUN 55 mg/dL (4-19); BUN/Creat Ratio 31.9 RATIO (10-20); Calcium,Total 9.3 mg/dL (7.6-11.0); Carbon Dioxide 20.1 mmol/L (21.0-32.0); Chloride 107 mmol/L (98-108); Globulin 2.4 g/dL (2.2-4.2); Glucose 94 mg/dL (70-99); Potassium 5.2 mmol/L (3.3-5.1)
== END ==
LOC: OLS.DANBUR 05:00
PROVIDERS: PCP Family Medicine; Visit Provider Family Medicine
DX: R05.9 Cough, unspecified (principal)
CPT/HCPCS: 36415; 80053; 81001; 85025; 87077; 87086; 87088; 87186

== ENCOUNTER → 2025-06-28 05:00 | Outpatient (REF) | payer MEDICARE, OTHER, SELFPAY ==
[2021-04-10 08:54] VITALS: BMI 29.0
[2025-06-28 08:47] LABS: Mucous, Urine 0 SEEN /hpf (<or=2+); Red Blood Cells-Urine 0 SEEN /hpf (0-5)
[2025-06-28 09:22] LABS: Color, Urine Yellow (Yellow); Glucose, Dipstick Normal (Normal); Ketone-Dipstick Negative (Negative); Leukocyte Esterase-Dipstick 25 /ul (Negative); Nitrite-Dipstick Negative (Negative); Occult Blood-Urine Negative /ul (Negative); Protein-Dipstick 15 mg/dl (Negative); Specific Gravity, Urine 1.015 (1.002-1.030); Urine Bilirubin Dipstick Negative (Negative)
[2025-06-28 09:26] LABS: Hematocrit 31.7 % (37-47); Hemoglobin 10.8 g/dL (12.0-15.0); Immature Granulocytes Count 0.050 X10^3/uL (0.0-0.0); Mean Corp Hgb Conc 34.1 g/dL (32-36); Mean Corpuscular Volume 97.2 fL (81-99); Mean Platelet Vol. 9.6 fl (6.2-12.0); NRBC Flagged by Analyzer 0 % (0-5); Platelet Count 236 K/mm3 (150-450); RBC Distribution Width CV 12.4 % (11.6-14.6); RBC Distribution Width SD 44.2 fl (35.1-43.9); Red Blood Count 3.26 M/mm3 (4.2-5.4); White Blood Count 6.4 K/mm3 (4.4-11.0)
[2025-06-28 09:30] LABS: Squamous Epithelial Cells - UA 0-5 SEEN /hpf (5-10)
[2025-06-28 09:49] LABS: Anion Gap 10 (7-18); BUN 47 mg/dL (4-19); BUN/Creat Ratio 28.1 RATIO (10-20); Calcium,Total 9.3 mg/dL (7.6-11.0); Carbon Dioxide 21.3 mmol/L (20.0-29.0); Chloride 107 mmol/L (96-106); Glucose 106 mg/dL (70-99); Potassium 5.4 mmol/L (3.5-5.1)
== END ==
LOC: OLS.DANBUR 05:00
PROVIDERS: PCP Family Medicine; Visit Provider Family Medicine
DX: R41.89 Other symptoms and signs involving cognitive functions and awareness (principal)
CPT/HCPCS: 36415; 80048; 81001; 84443; 85025; 87077; 87086; 87088; 87186